=== PATIENT | female | born 1955 | race Caucasian/White ===

== ENCOUNTER 2017-10-10 15:48 | Emergency (ER) | payer BC ==
[~2017-10-10] VITALS: Ht 152.4 cm; Wt 62.6 kg
[2017-10-10 15:55] VITALS: TEMP 37; O2SAT 97; Ht 152.4 cm; Wt 62.6 kg
[2017-10-10] MEDS ORDERED: DILTIAZEM HCL 5 MG/ML 5 ML VIAL IV STA (16:07)
[2017-10-10] MEDS ORDERED: SODIUM CHLORIDE 0.9% 500ML 500 ML IV STA (16:07)
[2017-10-10 16:20] LABS: BASO % 0.3 %; BASO ABS # 0.02 K/uL (0-0.2); EOS % 2.2 %; EOS ABS # 0.14 K/uL (0-0.5); HEMATOCRIT 42.3 % (37-47); HEMOGLOBIN 14.4 g/dL (12.0-16.0); IG# 0.02 K/uL (0.00-0.02); LYMPH % 28.2 %; LYMPH ABS # 1.81 K/uL (1.2-3.4); MEAN CORPUSCULAR HEMOGLOBIN 31.3 pg (25-34); MEAN PLATELET VOLUME 9.4 fL (7.4-10.4); MONO % 4.2 %; MONO ABS # 0.27 K/uL (0.11-0.59); NEUT % 64.8 %; NEUT ABS # 4.16 K/uL (1.4-6.5); PLATELET COUNT 254 K/uL (130-400); RED CELL DISTRIBUTION WIDTH CV 12.4 % (11.5-14.5); RED CELL DISTRIBUTION WIDTH SD 41.5 fL (36.4-46.3); WHITE BLOOD COUNT 6.42 K/uL (4.8-10.8)
--- NOTE | 2017-10-10 16:35 | DIAGNOSTIC IMAGING REPORT ---
CHEST ONE VIEW PORTABLE CLINICAL HISTORY: Atypical chest pain COMPARISON STUDY: No previous studies for comparison. FINDINGS: The cardiac and mediastinal contours are normal. There is no evidence of focal pulmonary consolidation. There is no evidence of failure. No pleural effusions are visualized.[ IMPRESSION: No active disease in the chest. Electronically signed by: Darian Mantilla M.D. 10/10/2017 4:34 PM Dictated Date/Time: 10/10/2017 4:34 PM
[2017-10-10 16:38] LABS: ALBUMIN 3.9 gm/dl (3.4-5.0); ALT/SGPT 19 U/L (12-78); BLOOD UREA NITROGEN 21 mg/dl (7-18); CALCIUM 8.7 mg/dl (8.5-10.1); CARBON DIOXIDE 20 mmol/L (21-32); GLUCOSE 103 mg/dl (70-99); LIPASE 221 U/L (73-393); SODIUM 137 mmol/L (136-145)
[2017-10-10] MEDS ORDERED: AMLO-114 PO (16:42)
[2017-10-10] MEDS ORDERED: LOSA50TA54 PO (16:42)
[2017-10-10 16:49] LABS: ALKALINE PHOSPHATASE 55 U/L (45-117); AST/SGOT 16 U/L (15-37); TOTAL PROTEIN 7.2 gm/dl (6.4-8.2)
[2017-10-10] MEDS ORDERED: SODIUM CHLORIDE 0.9% 1000ML 1,000 ML IV STA ×3 (16:50→18:22)
[2017-10-10] MEDS ORDERED: ASPI-435 PO (16:52)
[2017-10-10] MEDS ORDERED: LOVENOX TEACHING KIT STA (20:19)
[2017-10-10] MEDS ORDERED: MAGNESIUM SULFATE 1GM / D5W 1 GM BAG IV STA (20:19)
[2017-10-10] MEDS ORDERED: ENOXAPARIN 1 MG/KG SQ STA (20:19)
[2017-10-10] MEDS ORDERED: METOPROLOL TARTRATE 50 MG TAB PO STA (20:19)
--- NOTE | 2017-10-10 20:20 | EMERGENCY ROOM VISIT NOTE ---
History Report prepared by José: Boogie Gonzalez Under the Supervision of: Dr. Connor Zhu M.D. First contact with patient: 15:58 Chief Complaint: CARDIAC ASSESSMENT Stated Complaint: CARDIAC SX Nursing Triage Summary: cramping in legs, dehydration, fatigue, A. fib History of Present Illness The patient is a 62 year old female who presents to the Emergency Room by EMS with complaints of constant bilateral leg "cramping" beginning today. She was found to be in A-fib en route, and was given Diltiazem. She also complains of fatigue today. The patient has a history of A-fib, but has not had an episode in about seven years. She is not on any blood thinners. She denies cough, shortness of breath, or nausea. The patient notes that she was sick two weeks ago with flu-like symptoms including fevers, chills, vomiting, abdominal pain. She feels that she may be dehydrated. She notes that she has not felt heart palpitations at all today. The patient was started on Losartan last week for urinary symptoms. She adds that she has not been eating well today. She has no history of thyroid issues or blood clots. Source of History: patient Onset: Today Position: leg (bilateral) Quality: cramping Timing: constant Associated Symptoms: + fevers (two weeks ago), + vomiting (two weeks ago), + abdominal pain (two weeks ago), + fatigue (today), No cough, No SOB, No nausea Review of Systems See HPI for pertinent positives and negatives. A total of ten systems were reviewed and were otherwise negative. Past Medical & Surgical Medical Problems: (1) A-fib (2) HTN (hypertension) Family History No pertinent family stated. Social History Smoking Status: Never Smoker Current/Historical Medications Scheduled Amlodipine (Norvasc), 10 MG PO QPM Aspirin (Aspirin 81), 81 MG PO DAILY Enoxaparin (Lovenox), 60 MG SQ Q12H Losartan Potassium (Cozaar), 50 MG PO DAILY Metoprolol Tartrate (Lopressor), 25 MG PO BID Allergies Coded Allergies: Diphenhydramine (Unverified Adverse Reaction, Unknown, HAD 12 YEARS AGO W / CHEMO, "NERVOUSNESS", 10/10/17) Physical Exam Vital Signs Date Time Temp Pulse Resp B/P (MAP) Pulse Ox O2 Delivery O2 Flow Rate FiO2 10/10/17 22:03 65 20 128/78 95 10/10/17 20:38 98 10/10/17 19:16 103 15 142/101 98 Room Air 10/10/17 18:14 115 16 156/90 99 Room Air 10/10/17 17:26 105 18 136/85 98 Room Air 10/10/17 16:44 110 18 164/97 97 Room Air 10/10/17 16:33 131 10/10/17 16:28 102 18 136/78 97 Room Air 10/10/17 15:55 Room Air 10/10/17 15:55 97 Room Air 10/10/17 15:55 37.0 140 24 177/112 97 Room Air Physical Exam GENERAL: Awake, alert, fatigued-appearing, in no distress HENT: Normocephalic, atraumatic. Oropharynx unremarkable. Dry mucous membranes. EYES: Normal conjunctiva. Sclera non-icteric. NECK: Supple. No nuchal rigidity. FROM. No JVD. RESPIRATORY: Clear to auscultation. CARDIAC: Tachycardic rate with an irregularly irregular rhythm. Extremities warm and well perfused. Pulses equal. ABDOMEN: Soft, non-distended. No tenderness to palpation. No rebound or guarding. No masses. RECTAL: Deferred. MUSCULOSKELETAL: Chest examination reveals no tenderness. The back is symmetrical on inspection without obvious abnormality. There is no CVA tenderness to palpation. No joint edema. LOWER EXTREMITIES: Calves are equal size bilaterally and non-tender. No edema. No discoloration. NEURO: Normal sensorium. No sensory or motor deficits noted. SKIN: No rash or jaundice noted. Medical Decision & Procedures ER Provider Diagnostic Interpretation: Radiology results as stated below per my review and radiologist interpretation: CHEST ONE VIEW PORTABLE FINDINGS: The cardiac and mediastinal contours are normal. There is no evidence of focal pulmonary consolidation. There is no evidence of failure. No pleural effusions are visualized.[ IMPRESSION: No active disease in the chest. Electronically signed by: Darian Mantilla M.D. 10/10/2017 4:34 PM Laboratory Results 10/10/17 16:05 Red Blood Count 4.60, Mean Corpuscular Volume 92.0, Mean Corpuscular Hemoglobin 31.3, Mean Corpuscular Hemoglobin Concent 34.0, Mean Platelet Volume 9.4, Neutrophils (%) (Auto) 64.8, Lymphocytes (%) (Auto) 28.2, Monocytes (%) (Auto) 4.2, Eosinophils (%) (Auto) 2.2, Basophils (%) (Auto) 0.3, Neutrophils # (Auto) 4.16, Lymphocytes # (Auto) 1.81, Monocytes # (Auto) 0.27, Eosinophils # (Auto) 0.14, Basophils # (Auto) 0.02 10/10/17 16:05 Test 10/10/17 16:05 10/10/17 16:30 White Blood Count 6.42 K/uL (4.8-10.8) Red Blood Count 4.60 M/uL (4.2-5.4) Hemoglobin 14.4 g/dL (12.0-16.0) Hematocrit 42.3 % (37-47) Mean Corpuscular Volume 92.0 fL (80-100) Mean Corpuscular Hemoglobin 31.3 pg (25-34) Mean Corpuscular Hemoglobin Concent 34.0 g/dl (32-36) Platelet Count 254 K/uL (130-400) Mean Platelet Volume 9.4 fL (7.4-10.4) Neutrophils (%) (Auto) 64.8 % Lymphocytes (%) (Auto) 28.2 % Monocytes (%) (Auto) 4.2 % Eosinophils (%) (Auto) 2.2 % Basophils (%) (Auto) 0.3 % Neutrophils # (Auto) 4.16 K/uL (1.4-6.5) Lymphocytes # (Auto) 1.81 K/uL (1.2-3.4) Monocytes # (Auto) 0.27 K/uL (0.11-0.59) Eosinophils # (Auto) 0.14 K/uL (0-0.5) Basophils # (Auto) 0.02 K/uL (0-0.2) RDW Standard Deviation 41.5 fL (36.4-46.3) RDW Coefficient of Variation 12.4 % (11.5-14.5) Immature Granulocyte % (Auto) 0.3 % Immature Granulocyte # (Auto) 0.02 K/uL (0.00-0.02) Anion Gap 12.0 mmol/L (3-11) Est Creatinine Clear Calc Drug Dose 52.9 ml/min Estimated GFR () 78.9 Estimated GFR (Non- 68.0 BUN/Creatinine Ratio 23.2 (10-20) Calcium Level 8.7 mg/dl (8.5-10.1) Magnesium Level 1.7 mg/dl (1.8-2.4) Total Bilirubin 0.5 mg/dl (0.2-1) Direct Bilirubin < 0.1 mg/dl (0-0.2) Aspartate Amino Transf (AST/SGOT) 16 U/L (15-37) Alanine Aminotransferase (ALT/SGPT) 19 U/L (12-78) Alkaline Phosphatase 55 U/L (45-117) Troponin I < 0.015 ng/ml (0-0.045) Pro-B-Type Natriuretic Peptide 52 pg/ml (0-900) Total Protein 7.2 gm/dl (6.4-8.2) Albumin 3.9 gm/dl (3.4-5.0) Lipase 221 U/L (73-393) Thyroid Stimulating Hormone (TSH) 0.653 uIu/ml (0.300-4.500) Urine Color YELLOW Urine Appearance CLEAR (CLEAR) Urine pH 5.0 (4.5-7.5) Urine Specific Rowley 1.015 (1.000-1.030) Urine Protein NEG (NEG) Urine Glucose (UA) NEG (NEG) Urine Ketones NEG (NEG) Urine Occult Blood NEG (NEG) Urine Nitrite NEG (NEG) Urine Bilirubin NEG (NEG) Urine Urobilinogen NEG (NEG) Urine Leukocyte Esterase NEG (NEG) Laboratory results reviewed by me Medications Administered Medications (Trade) Dose Ordered Sig/Aniya Route Start Time Stop Time Status Last Admin Dose Admin Sodium Chloride 500 ml @ 999 mls/hr Q31M STAT IV 10/10/17 16:07 10/10/17 16:37 DC 10/10/17 16:26 999 MLS/HR Diltiazem HCl (Cardizem Inj) 20 mg NOW STAT IV 10/10/17 16:07 10/10/17 16:12 DC 10/10/17 16:26 20 MG Sodium Chloride 1,000 ml @ 999 mls/hr Q1H1M STAT IV 10/10/17 16:50 10/10/17 17:50 DC 10/10/17 16:54 999 MLS/HR Sodium Chloride 1,000 ml @ 999 mls/hr Q1H1M STAT IV 10/10/17 18:22 10/10/17 19:22 DC 10/10/17 18:25 999 MLS/HR Metoprolol Tartrate (Lopressor Tab) 25 mg NOW STAT PO 10/10/17 20:19 10/10/17 20:24 DC 10/10/17 20:28 25 MG Magnesium Sulfate (Magnesium Sulfate) 2 gm NOW STAT IV 10/10/17 20:19 10/10/17 20:24 DC 10/10/17 20:29 2 GM Miscellaneous (Lovenox Teaching Kit) 1 ea NOW STAT N/A 10/10/17 20:19 10/10/17 20:24 DC 10/10/17 20:19 1 EA Enoxaparin Sodium (Lovenox Inj) 60 mg 5 SQ 10/10/17 20:45 10/10/17 22:42 DC 10/10/17 21:41 60 MG ECG Indication: other (fatigue) Rate (beats per minute): 137 Rhythm: atrial fibrillation (with RVR) Findings: no acute ischemic change, other (Normal axis. ) ED Course 1559: The patient was evaluated in room A12B. A complete history and physical exam was performed. 2015: I reevaluated the patient. Discussed results and discharge instructions: she verbalized understanding and agreement. The patient is ready for discharge. Medical Decision I reviewed the patient's past medical history, medications, and the nursing notes as described above. The patient's presentation and history were concerning for premature contractions, electrolyte abnormality, cardiac dysrhythmia, thyroid dysfunction , pulmonary embolism, infection, gastrointestinal, as well as other pathologies were entertained. The patient is a 62-year-old woman with a past medical history of remote paroxysmal A. fib who presents emergency Department with generalized fatigue found to be in A. fib with RVR to the 160s per hpi. En route by EMS the patient was given 15 mg of IV Cardizem with marginal improvement to the 130s. Of note patient reports resolving URI 2 weeks [employer] during which time she feels she was eating and drinking less. On arrival the patient is no acute distress, afebrile, A. fib to 130s, blood pressure hypertensive but otherwise stable. Duration of new afib unclear given patient denies palpitations on arrival, thus cardioversion not indicated. Labs with WBC, troponin, BNP within normal limits. Magnesium 1.7. UA negative. Chest x-ray negative. Patient improved with IV fluids and additional dose of diltiazem heart rate settling in the 90s-100s. CHADSVASC 2 thus anticoagulation is indicated. Risks and benefits were discussed with the patient and she is agreeable to begin anticoagulation. She is uncertain if she would prefer a novel AC medication versus Coumadin and agrees to begin Lovenox until she can discuss further with cardiology and her PCP. Will given low dose metoprolol for rate control until her f/u. Findings and plan for follow-up reviewed with patient. Patient agreeable and d/c'd per discharge instructions. Medication Reconcilliation Current Medication List: was personally reviewed by me Blood Pressure Screening Patient's blood pressure: Elevated blood pressure Blood pressure disposition: Referred to PCP Impression Primary Impression: Atrial fibrillation with rapid ventricular response Scribe Attestation The scribe's documentation has been prepared under my direction and personally reviewed by me in its entirety. I confirm that the note above accurately reflects all work, treatment, procedures, and medical decision making performed by me. Departure Information Dispostion Home / Self-Care Prescriptions Enoxaparin (Lovenox) 120 Mg/0.8 Ml Inj 60 MG SQ Q12H for 14 Days, #28 SYR Prov: Connor Zhu M.D. 10/10/17 Metoprolol Tartrate (LOPRESSOR) 25 Mg Tab 25 MG PO BID for 14 Days, #28 TAB Prov: Connor Zhu M.D. 10/10/17 Referrals Arthur Gore M.D. Patient Instructions Anticoagulants, Atrial Fibrillation Dc, My [facility] Additional Instructions Please follow up with cardiology, Dr. Gore, tomorrow, for re-evaluation. You were found to have new atrial fibrillation with a fast heart rate that improved with hydration and medications. Otherwise, your exam, EKG, chest xray, and lab results did not show signs of an emergent condition at this time. Based on your risk factors for stroke you meet criteria to be on a blood thinner to minimize the risk of stroke associated with atrial fibrillation. You will be started on Lovenox until you are able further decide with your doctors. You were also given a prescription for Metoprolol, a medication to keep your heart rate from becoming too fast. Return to the emergency department for worsening symptoms as described in the accompanying instructions. Work Instructions Return To Work: 1 week
[2017-10-10] MEDS ORDERED: ENOXAPARIN 60 MG/0.6 ML SYR SQ SCH (20:45)
[2017-10-10] MEDS ORDERED: LPR25 PO (21:33)
[2017-10-10] MEDS ORDERED: ENOX120I SQ (21:33)
[2017-10-10 22:03] VITALS: BP 128/78; PULSE 65; O2SAT 95
--- NOTE | 2017-10-11 12:12 | Pharmacy Progress Note ---
ED Pharmacist Progress Note Date of Service: Oct 11, 2017. Phone call received from [facility] questioning the Lovenox Rx given by Dr Zhu. Rx was sent for 120mg/0.8mL syringes with directions of 60mg SQ Q 12 hours x 14 days. Reviewed medical record. Pt dx with a fib. Wt is 62.6kg. Provider wanted 1mg/ kg (60mg) Q 12 hrs to be administered per his documentation. Advised pharmacist that the 60mg syringes should be dispensed in place of the 120mg syringes.
== END 2017-10-10 22:00 | disposition home or self-care (01) ==
LOC: C.EDA 15:55
DX: I48.0 Paroxysmal atrial fibrillation (principal); I10 Essential (primary) hypertension; Z79.82 Long term (current) use of aspirin; Z79.01 Long term (current) use of anticoagulants; Z79.899 Other long term (current) drug therapy

== ENCOUNTER 2018-01-16 16:29 | Emergency (ER) | payer BC ==
[~2018-01-16] VITALS: Ht 152.4 cm; Wt 61.7 kg
[~2018-01-16 16:29] MED LIST: AMLO-114 PO; ASPI-435 PO; LOSA50TA54 PO
[2018-01-16 16:33] VITALS: TEMP 37.2; Ht 152.4 cm; Wt 61.7 kg
[2018-01-16] MEDS ORDERED: SODIUM CHLORIDE 0.9% 500ML 500 ML IV STA (17:32)
--- NOTE | 2018-01-16 17:34 | EMERGENCY ROOM VISIT NOTE ---
History Report prepared by José: Peter Chacon Under the Supervision of: Dr. Connor Zhu M.D. First contact with patient: 17:25 Chief Complaint: DIZZY Stated Complaint: DIZZY Nursing Triage Summary: Dizzy spells since December. Pt was diagnosed with new onset Afib in October and placed on new medicatons. Pt states the spells mostly happen in the morning. Pt was dizzy this morning for about 15-20 minutes, pt does not pass out. History of Present Illness The patient is a 62 year old female who presents to the Emergency Room with complaints of a resolved, episode of dizziness that occurred four hours ago. The patient states her episode lasted for 15 minutes. She reports she started new heart medication in October when she was diagnosed with A-Fib. The patient notes she has had about 6-7 similar episodes since November. She states took her blood pressure, and it was 89 systolic. The patient reports she sat up, moved around, and felt better. She notes she did not sleep well last night because her acid reflux was more active than normal. The patient states she has been painting around her house and was extremely tired yesterday. She reports she woke up today and thought she was going to have a dizzy spell. The patient notes she called Dr. Gore and was told to come to the ED. She states she currently takes lysortine, Bystolic, and Xarelto. The patient denies trouble eating or drinking, cough, congestion, nausea, vomiting, diarrhea, chest pain, shortness of breath, and urinary symptoms. Source of History: patient Onset: four hours ago Symptom Intensity: 15 minutes Quality: other (dizziness) Timing: resolved Modifying Factors (Relieving): movement Associated Symptoms: No cough, No chest pain, No SOB, No nausea, No vomiting , No diarrhea, No urinary symptoms Note: Associated symptoms: 89 systolic bp, Denies: trouble eating or drinking, congestion Review of Systems See HPI for pertinent positives and negatives. A total of ten systems were reviewed and were otherwise negative. Past Medical & Surgical Medical Problems: (1) A-fib (2) HTN (hypertension) Family History Patient reports no known family medical history. Social History Smoking Status: Never Smoker Marital Status: Housing Status: lives with significant other Occupation Status: employed Current/Historical Medications Scheduled Amlodipine (Norvasc), 10 MG PO QPM Aspirin (Aspirin 81), 81 MG PO DAILY Losartan Potassium (Cozaar), 50 MG PO DAILY Nebivolol Hcl (Bystolic), 10 MG PO DAILY Rivaroxaban (Xarelto), 20 MG PO DAILY Allergies Coded Allergies: Diphenhydramine (Unverified Adverse Reaction, Unknown, HAD 12 YEARS AGO W / CHEMO, "NERVOUSNESS", 01/16/18) Physical Exam Vital Signs Date Time Temp Pulse Resp B/P (MAP) Pulse Ox O2 Delivery O2 Flow Rate FiO2 01/16/18 21:56 67 16 115/76 98 01/16/18 21:05 68 18 134/72 96 Room Air 01/16/18 21:03 70 01/16/18 20:04 55 18 143/75 96 Room Air 01/16/18 18:40 65 18 98/80 97 Room Air 01/16/18 16:45 64 01/16/18 16:33 37.2 68 16 152/73 98 Room Air Physical Exam GENERAL: Awake, alert, fatigue-appearing, in no distress HENT: Normocephalic, atraumatic. Oropharynx has dry mucus membranes otherwise unremarkable. EYES: Normal conjunctiva. Sclera non-icteric. NECK: Supple. No nuchal rigidity. FROM. No JVD. RESPIRATORY: Clear to auscultation. CARDIAC: Regular rate, normal rhythm. Extremities warm and well perfused. Pulses equal. ABDOMEN: Soft, non-distended. No tenderness to palpation. No rebound or guarding. No masses. RECTAL: Deferred. MUSCULOSKELETAL: Chest examination reveals no tenderness. The back is symmetrical on inspection without obvious abnormality. There is no CVA tenderness to palpation. No joint edema. LOWER EXTREMITIES: Calves are equal size bilaterally and non-tender. No edema. No discoloration. NEURO: Normal sensorium. No sensory or motor deficits noted. normal cerebellar function with adkrji-db-[id number], alternating palms, dpun-[id number] SKIN: No rash or jaundice noted. Medical Decision & Procedures ER Provider Diagnostic Interpretation: X-ray: Per my interpretation, radiologist review. CHEST ONE VIEW PORTABLE CLINICAL HISTORY: dizzy mental status change COMPARISON STUDY: 10/10/2017 FINDINGS: The bones soft tissues and hemidiaphragms are normal. The cardiomediastinal silhouette is normal. The lungs are clear. The pulmonary vasculature is normal. IMPRESSION: Negative chest. The above report was generated using voice recognition software. It may contain grammatical, syntax or spelling errors. Electronically signed by: Aidan Hudson M.D. 01/16/2018 5:44 PM Dictated Date/Time: 01/16/2018 5:43 PM Laboratory Results 01/16/18 17:18 Red Blood Count 4.32, Mean Corpuscular Volume 88.7, Mean Corpuscular Hemoglobin 30.6, Mean Corpuscular Hemoglobin Concent 34.5, Mean Platelet Volume 9.5, Neutrophils (%) (Auto) 77.5, Lymphocytes (%) (Auto) 15.6, Monocytes (%) (Auto) 4.5, Eosinophils (%) (Auto) 2.0, Basophils (%) (Auto) 0.2, Neutrophils # (Auto) 5.14, Lymphocytes # (Auto) 1.03, Monocytes # (Auto) 0.30, Eosinophils # (Auto) 0.13, Basophils # (Auto) 0.01 01/16/18 17:18 01/16/18 18:38 Test 01/16/18 17:18 01/16/18 18:38 01/16/18 19:30 White Blood Count 6.62 K/uL (4.8-10.8) Red Blood Count 4.32 M/uL (4.2-5.4) Hemoglobin 13.2 g/dL (12.0-16.0) Hematocrit 38.3 % (37-47) Mean Corpuscular Volume 88.7 fL (80-100) Mean Corpuscular Hemoglobin 30.6 pg (25-34) Mean Corpuscular Hemoglobin Concent 34.5 g/dl (32-36) Platelet Count 300 K/uL (130-400) Mean Platelet Volume 9.5 fL (7.4-10.4) Neutrophils (%) (Auto) 77.5 % Lymphocytes (%) (Auto) 15.6 % Monocytes (%) (Auto) 4.5 % Eosinophils (%) (Auto) 2.0 % Basophils (%) (Auto) 0.2 % Neutrophils # (Auto) 5.14 K/uL (1.4-6.5) Lymphocytes # (Auto) 1.03 K/uL (1.2-3.4) Monocytes # (Auto) 0.30 K/uL (0.11-0.59) Eosinophils # (Auto) 0.13 K/uL (0-0.5) Basophils # (Auto) 0.01 K/uL (0-0.2) RDW Standard Deviation 41.5 fL (36.4-46.3) RDW Coefficient of Variation 13.0 % (11.5-14.5) Immature Granulocyte % (Auto) 0.2 % Immature Granulocyte # (Auto) 0.01 K/uL (0.00-0.02) Anion Gap 12.0 mmol/L (3-11) Est Creatinine Clear Calc Drug Dose 45.0 ml/min Estimated GFR () 65.5 Estimated GFR (Non- 56.5 BUN/Creatinine Ratio 23.4 (10-20) Calcium Level 9.4 mg/dl (8.5-10.1) Phosphorus Level 2.7 mg/dl (2.5-4.9) Total Bilirubin 0.5 mg/dl (0.2-1) Alanine Aminotransferase (ALT/SGPT) 17 U/L (12-78) Alkaline Phosphatase 52 U/L (45-117) Creatine Kinase MB 1.7 ng/ml (0.5-3.6) Creatine Kinase MB Ratio (0-3.0) Troponin I < 0.015 ng/ml (0-0.045) Pro-B-Type Natriuretic Peptide 1790 pg/ml (0-900) Total Protein 7.2 gm/dl (6.4-8.2) Albumin 3.6 gm/dl (3.4-5.0) Globulin 3.6 gm/dl (2.5-4.0) Albumin/Globulin Ratio 1.0 (0.9-2) Thyroid Stimulating Hormone (TSH) 0.487 uIu/ml (0.300-4.500) Magnesium Level 1.4 mg/dl (1.8-2.4) Aspartate Amino Transf (AST/SGOT) 12 U/L (15-37) Total Creatine Kinase 45 U/L (26-192) Urine Color YELLOW Urine Appearance CLEAR (CLEAR) Urine pH 5.0 (4.5-7.5) Urine Specific Gantt 1.018 (1.000-1.030) Urine Protein NEG (NEG) Urine Glucose (UA) NEG (NEG) Urine Ketones NEG (NEG) Urine Occult Blood NEG (NEG) Urine Nitrite NEG (NEG) Urine Bilirubin NEG (NEG) Urine Urobilinogen NEG (NEG) Urine Leukocyte Esterase NEG (NEG) Urine WBC (Auto) 1-5 /hpf (0-5) Urine RBC (Auto) 0-4 /hpf (0-4) Urine Hyaline Casts (Auto) 1-5 /lpf (0-5) Urine Epithelial Cells (Auto) 5-10 /lpf (0-5) Urine Bacteria (Auto) NEG (NEG) Laboratory results reviewed by me Medications Administered Medications (Trade) Dose Ordered Sig/Aniya Route Start Time Stop Time Status Last Admin Dose Admin Sodium Chloride 500 ml @ 999 mls/hr Q31M STAT IV 01/16/18 17:32 01/16/18 18:02 DC 01/16/18 17:41 999 MLS/HR Magnesium Sulfate (Magnesium Sulfate 1gm / D5W) 2 gm NOW STAT IV 01/16/18 19:42 01/16/18 19:44 DC 01/16/18 19:49 2 GM Potassium Chloride 100 ml @ 100 mls/hr NOW STAT IV 01/16/18 19:42 01/16/18 20:41 DC 01/16/18 19:59 100 MLS/HR Sodium Chloride 250 ml @ 999 mls/hr Q16M STAT IV 01/16/18 19:42 01/16/18 19:57 DC 01/16/18 19:51 999 MLS/HR Ondansetron HCl (Zofran Inj) 4 mg NOW STAT IV 01/16/18 19:50 01/16/18 19:53 DC 01/16/18 19:58 4 MG Potassium Chloride (Klor-Con M10) 40 meq NOW STAT PO 01/16/18 19:50 01/16/18 19:53 DC 01/16/18 20:01 40 MEQ ECG Per My Interpretation Indication: other (dizziness) Rate (beats per minute): 53 Rhythm: sinus bradycardia Findings: no acute ischemic change, other (Normal axis) ED Course 1726: The patient was evaluated in room B11B. A complete history and physical exam was performed. 1943: I reevaluated the patient. Discussed results and discharge instructions: she verbalized understanding and agreement. The patient is ready for discharge after her electrolytes are replenished. Medical Decision I reviewed the patient's past medical history, medications, and the nursing notes as described above. Differential diagnosis: Etiologies such as migraine headache, meningitis, sinusitis, CO exposure, ICH, SAH, infection, tumor, headache, sinus thrombosis, arterial dissection, as well as others were entertained. The patient is a 61-year-old woman with a past medical history of A. fib on Xarelto who presents emergency department with intermittent episodes of lightheadedness where she reports she takes her blood pressure and it is with a systolic in the 80s per hpi. She denies any chest pain or shortness of breath with these episodes and currently presents emergency department with no symptoms. She had her most recent episode around 3 PM prior to arrival that is now resolved. Arrival the patient is well-appearing in no acute distress, afebrile stable vital signs. EKG is unremarkable. Chest x-ray negative. The patient is neuro intact including normal cerebellar function with sfvdwe-lb-[id number] , alternating palms, easj-ls-yaes. She does appear clinically dry and reports that she is pretty active decreased since she has been placed on medication for her A. fib and so she has been actively painting her house going up and down a ladder she does report not drinking much fluids. WBC and troponin within normal limits. BNP elevated 1700s however chest x-ray clear and patient is without any respiratory symptoms. BUN/creatinine > 20. Bicarbonate 18. No anion gap. Consistent with mild dehydration given the patient's clinically dry appearance. Magnesium 1.4 and potassium 3.3. Discussed with the patient and we agreed to provide repletion and hydration and if she continues to be asymptomatic she can follow-up with her primary care doctor and accounting systems manager with whom she has an appointment with on . Patient improved and ambulating without difficulty. Findings and plan for follow-up reviewed with patient. Patient agreeable and d/c'd per discharge instructions. Medication Reconcilliation Current Medication List: was personally reviewed by me Blood Pressure Screening Patient's blood pressure: Normal blood pressure Blood pressure disposition: Did not require urgent referral Impression Primary Impression: Dizziness Additional Impression: Dehydration Scribe Attestation The scribe's documentation has been prepared under my direction and personally reviewed by me in its entirety. I confirm that the note above accurately reflects all work, treatment, procedures, and medical decision making performed by me. Departure Information Dispostion Home / Self-Care Referrals No Doctor, Assigned (PCP) Forms HOME CARE DOCUMENTATION FORM, IMPORTANT VISIT INFORMATION Patient Instructions Dizziness Fainting Poss Causes, ED Dehydration, ED Dizziness Amaris UNDERWO[facility] Additional Instructions Please follow up with your primary care physician in the next 1-3 days and your accounting systems manager as scheduled on for re-evaluation. Your symptoms are most likely related to mild dehydration. Otherwise, your exam, EKG, chest xray, and lab results did not show signs of an emergent condition at this time. Reduce your Norvasc to 5 mg daily until reevaluated by your accounting systems manager. Drink plenty of fluids to ensure hydration. Return to the emergency department for worsening symptoms as described in the accompanying instructions. Problem Qualifiers
--- NOTE | 2018-01-16 17:45 | DIAGNOSTIC IMAGING REPORT ---
CHEST ONE VIEW PORTABLE CLINICAL HISTORY: dizzy mental status change COMPARISON STUDY: 10/10/2017 FINDINGS: The bones soft tissues and hemidiaphragms are normal. The cardiomediastinal silhouette is normal. The lungs are clear. The pulmonary vasculature is normal. IMPRESSION: Negative chest. The above report was generated using voice recognition software. It may contain grammatical, syntax or spelling errors. Electronically signed by: Aidan Hudson M.D. 01/16/2018 5:44 PM Dictated Date/Time: 01/16/2018 5:43 PM
[2018-01-16 17:52] LABS: BASO % 0.2 %; BASO ABS # 0.01 K/uL (0-0.2); EOS ABS # 0.13 K/uL (0-0.5); HEMATOCRIT 38.3 % (37-47); HEMOGLOBIN 13.2 g/dL (12.0-16.0); IG# 0.01 K/uL (0.00-0.02); LYMPH % 15.6 %; LYMPH ABS # 1.03 K/uL (1.2-3.4); MEAN CELL VOLUME 88.7 fL (80-100); MEAN CORPUSCULAR HEMOGLOBIN 30.6 pg (25-34); MEAN CORPUSCULAR HGB CONC 34.5 g/dl (32-36); MEAN PLATELET VOLUME 9.5 fL (7.4-10.4); MONO % 4.5 %; NEUT % 77.5 %; NEUT ABS # 5.14 K/uL (1.4-6.5); PLATELET COUNT 300 K/uL (130-400); RED CELL DISTRIBUTION WIDTH SD 41.5 fL (36.4-46.3); WHITE BLOOD COUNT 6.62 K/uL (4.8-10.8)
[2018-01-16] MEDS ORDERED: NEBI10TA2 PO (18:14)
[2018-01-16] MEDS ORDERED: RIVA1TAB4 PO (18:14)
[2018-01-16 18:24] LABS: ALBUMIN 3.6 gm/dl (3.4-5.0); ALKALINE PHOSPHATASE 52 U/L (45-117); ALT/SGPT 17 U/L (12-78); BLOOD UREA NITROGEN 25 mg/dl (7-18); CALCIUM 9.4 mg/dl (8.5-10.1); CARBON DIOXIDE 18 mmol/L (21-32); CKMB 1.7 ng/ml (0.5-3.6); CREATININE 1.05 mg/dl (0.60-1.20); GLUCOSE 132 mg/dl (70-99); PHOSPHORUS 2.7 mg/dl (2.5-4.9); SODIUM 141 mmol/L (136-145); TOTAL PROTEIN 7.2 gm/dl (6.4-8.2)
[2018-01-16 19:08] LABS: POTASSIUM 3.2 mmol/L (3.5-5.1)
[2018-01-16] MEDS ORDERED: SODIUM CHLORIDE 0.9% 250ML 250 ML IV STA (19:42)
[2018-01-16] MEDS ORDERED: POTASSIUM CHLR 10 MEQ / WTR 100 ML IV STA (19:42)
[2018-01-16] MEDS ORDERED: MAGNESIUM SULFATE 1GM / D5W 1 GM BAG IV STA (19:42)
[2018-01-16] MEDS ORDERED: ONDANSETRON INJ 2 MG/ML 2 ML VIAL IV STA (19:50)
[2018-01-16] MEDS ORDERED: POTASSIUM CHLORIDE 10 MEQ TABCR PO STA (19:50)
[2018-01-16 21:56] VITALS: BP 115/76; PULSE 67; O2SAT 98
== END 2018-01-16 21:57 | disposition home or self-care (01) ==
LOC: EDBD 16:29 → C.EDB 16:30
DX: R42 Dizziness and giddiness (principal); E86.0 Dehydration; I48.91 Unspecified atrial fibrillation; I10 Essential (primary) hypertension; Z79.899 Other long term (current) drug therapy

== ENCOUNTER 2018-05-02 12:03 | Emergency (ER) | payer BC ==
[~2018-05-02] VITALS: Ht 152.4 cm; Wt 63.1 kg
[~2018-05-02 12:03] MED LIST changes: -AMLO-114 PO; +AMLO10TA3 PO; +NEBI10TA2 PO; +RIVA1TAB4 PO
[2018-05-02 12:07] VITALS: Ht 152.4 cm; Wt 63.1 kg
[2018-05-02] MEDS ORDERED: SODIUM CHLORIDE 0.9% 1000ML 1,000 ML IV STA (12:34)
--- NOTE | 2018-05-02 12:37 | EMERGENCY ROOM VISIT NOTE ---
History Report prepared by José: Daniel Alvarez Under the Supervision of: Dr. Omid Cano M.D. First contact with patient: 12:12 Chief Complaint: DEHYDRATION Stated Complaint: TIRED,THIRSTY,FINDERS AND HANDS TINGLE Nursing Triage Summary: pt reports she thinks she is dehydrated feels thristy, tired, hands and feet tingly. has hx of afib. hr has been 48-61. has hx of ibs History of Present Illness The patient is a 63 year old white female who presents to the Emergency Room with complaints of weakness, increased thirst, and "tingling." The patient notes a history of A-Fib, but denies a history of thyroid problems or diabetes. The patient notes she has had the complaints the last x3-4 days. She states she has felt very thirsty, and notes she doesn't drink a lot of water, but has been urinating more. She notes the tingling is in her fingers. She states the symptoms have been getting worse, so she came in. The patient states she is on Xarelto for her A-Fib. She does note she was also recently on Bystolic, which she stopped taking x2 days. ago. The patient notes palpitations x1 week ago, but states it resolved and only lasted a few minutes. The patient does note hot flashes, but states she is currently menopausal. The patient denies increased confusion, weakness, chest pain, or shortness of breath. The patient states her last BM was this morning. Source of History: patient Onset: x3 days Position: other (generalized ) Symptom Intensity: moderate Timing: constant Associated Symptoms: No fevers, No chills, No chest pain, No SOB, No nausea , No vomiting Review of Systems See HPI for pertinent positives and negatives. A total of ten systems were reviewed and were otherwise negative. Constitutional: No fever, No chills Respiratory: No cough, No shortness of breath Cardiovascular: No chest pain Abdomen: No pain, No nausea, No vomiting, No diarrhea Genitourinary - Female: + urinary frequency Neurologic: + numbness/tingling, No weakness Endocrine: + excessive thirst Past Medical & Surgical Medical Problems: (1) A-fib (2) HTN (hypertension) Family History Patient reports no known family medical history. Social History Smoking Status: Never Smoker Smokeless Tobacco Use: No Alcohol Use: none Drug Use: none Marital Status: Housing Status: lives with significant other Occupation Status: employed Current/Historical Medications Scheduled Aspirin (Aspirin 81), 81 MG PO DAILY Losartan Potassium (Cozaar), 50 MG PO DAILY Nebivolol Hcl (Bystolic), 10 MG PO DAILY Rivaroxaban (Xarelto), 20 MG PO DAILY Allergies Coded Allergies: Diphenhydramine (Unverified Adverse Reaction, Unknown, HAD 12 YEARS AGO W / CHEMO, "NERVOUSNESS", 05/02/18) Physical Exam Vital Signs Date Time Temp Pulse Resp B/P (MAP) Pulse Ox O2 Delivery O2 Flow Rate FiO2 05/02/18 14:29 36.8 66 16 139/78 96 05/02/18 14:10 66 16 139/78 96 Room Air 05/02/18 12:38 64 05/02/18 12:07 36.8 68 18 158/93 98 Room Air Physical Exam GENERAL: Awake, alert, well-appearing, NAD HENT: Normocephalic, atraumatic. EYES: Normal conjunctiva. Sclera non-icteric. PERRL. No anisocoria. NECK: Supple. No nuchal rigidity. FROM. RESPIRATORY: CTAB, no rhonchi, wheezing, crackles CARDIAC: RRR, no MRG ABDOMEN: Soft, NTND, BS+ MSK: No chest wall TTP, no LE edema NEURO: No problems with speech noted. No weakness noted on exam. GCS 15, CN 2- 12 intact, moves all 4s on command SKIN: No rash or jaundice noted. Medical Decision & Procedures Laboratory Results 05/02/18 12:30 Red Blood Count 4.11, Mean Corpuscular Volume 94.4, Mean Corpuscular Hemoglobin 30.9, Mean Corpuscular Hemoglobin Concent 32.7, Mean Platelet Volume 10.1, Neutrophils (%) (Auto) 64.2, Lymphocytes (%) (Auto) 27.4, Monocytes (%) (Auto) 5.7, Eosinophils (%) (Auto) 2.4, Basophils (%) (Auto) 0.3, Neutrophils # (Auto) 3.82, Lymphocytes # (Auto) 1.63, Monocytes # (Auto) 0.34, Eosinophils # (Auto) 0.14, Basophils # (Auto) 0.02 05/02/18 12:30 Test 05/02/18 12:30 05/02/18 13:51 White Blood Count 5.95 K/uL (4.8-10.8) Red Blood Count 4.11 M/uL (4.2-5.4) Hemoglobin 12.7 g/dL (12.0-16.0) Hematocrit 38.8 % (37-47) Mean Corpuscular Volume 94.4 fL (80-100) Mean Corpuscular Hemoglobin 30.9 pg (25-34) Mean Corpuscular Hemoglobin Concent 32.7 g/dl (32-36) Platelet Count 223 K/uL (130-400) Mean Platelet Volume 10.1 fL (7.4-10.4) Neutrophils (%) (Auto) 64.2 % Lymphocytes (%) (Auto) 27.4 % Monocytes (%) (Auto) 5.7 % Eosinophils (%) (Auto) 2.4 % Basophils (%) (Auto) 0.3 % Neutrophils # (Auto) 3.82 K/uL (1.4-6.5) Lymphocytes # (Auto) 1.63 K/uL (1.2-3.4) Monocytes # (Auto) 0.34 K/uL (0.11-0.59) Eosinophils # (Auto) 0.14 K/uL (0-0.5) Basophils # (Auto) 0.02 K/uL (0-0.2) RDW Standard Deviation 43.7 fL (36.4-46.3) RDW Coefficient of Variation 12.8 % (11.5-14.5) Immature Granulocyte % (Auto) 0.0 % Immature Granulocyte # (Auto) 0.00 K/uL (0.00-0.02) Anion Gap 7.0 mmol/L (3-11) Est Creatinine Clear Calc Drug Dose 48.1 ml/min Estimated GFR () 70.7 Estimated GFR (Non- 61.0 BUN/Creatinine Ratio 19.7 (10-20) Calcium Level 8.4 mg/dl (8.5-10.1) Phosphorus Level 2.2 mg/dl (2.5-4.9) Magnesium Level 1.7 mg/dl (1.8-2.4) Total Bilirubin 0.3 mg/dl (0.2-1) Direct Bilirubin < 0.1 mg/dl (0-0.2) Aspartate Amino Transf (AST/SGOT) 20 U/L (15-37) Alanine Aminotransferase (ALT/SGPT) 27 U/L (12-78) Alkaline Phosphatase 57 U/L (45-117) Total Protein 6.9 gm/dl (6.4-8.2) Albumin 3.6 gm/dl (3.4-5.0) Lipase 418 U/L (73-393) Thyroid Stimulating Hormone (TSH) 0.905 uIu/ml (0.300-4.500) Urine Color YELLOW Urine Appearance CLEAR (CLEAR) Urine pH 6.5 (4.5-7.5) Urine Specific Harvey 1.006 (1.000-1.030) Urine Protein NEG (NEG) Urine Glucose (UA) NEG (NEG) Urine Ketones NEG (NEG) Urine Occult Blood NEG (NEG) Urine Nitrite NEG (NEG) Urine Bilirubin NEG (NEG) Urine Urobilinogen NEG (NEG) Urine Leukocyte Esterase NEG (NEG) Laboratory results reviewed by me Medications Administered Medications (Trade) Dose Ordered Sig/Aniya Route Start Time Stop Time Status Last Admin Dose Admin Sodium Chloride 1,000 ml @ 999 mls/hr Q1H1M STAT IV 05/02/18 12:34 05/02/18 13:34 DC 05/02/18 12:44 999 MLS/HR Calcium Carbonate (Tums Chew Tab) 1,500 mg ONE STAT PO 05/02/18 13:22 05/02/18 13:23 DC 05/02/18 13:44 1,500 MG Magnesium Oxide (Mag-Ox Tab) 800 mg ONE STAT PO 05/02/18 13:22 05/02/18 13:23 DC 05/02/18 13:44 800 MG Potassium/ Phosphorus/Sodium (Phospha 250 Neutral 155-852-130 Mg) 2 tab ONE STAT PO 05/02/18 13:22 05/02/18 13:23 DC 05/02/18 13:44 2 TAB ECG Per My Interpretation Indication: other (increased thirst, shaking) Rate (beats per minute): 65 Rhythm: normal sinus Findings: other (Normal Interviews and [place], No ST Changes or TWI) Change: no significant change (From February 2018) Medical Decision Nursing notes reviewed. Ancillary studies and prior records reviewed. The patient is a 63 year old WF w/ PMHx a fib and HTN who presents to the Emergency Room with complaints of weakness, increased thirst, and "tingling." Differential diagnosis: Etiologies such as metabolic, infection, hypo/hyperglycemia, electrolyte abnormalities, cardiac sources, intracerebral event, toxicologic, neurologic, as well as others were entertained. Patient was seen and evaluated the bedside. The patient has noticed feeling generalized weakness as well as some associated increased thirst and urination. Patient states she has not been drinking. Patient does take complain of some mild tingling in her hands. Patient is otherwise very well-appearing and has no focal neuro deficits. I do not believe that she requires a neuro workup at this time. The patient does take Xarelto for her history of A. fib although currently she appears to be normal sinus on the monitor. Patient did have blood work completed was given IV fluids and an EKG was obtained. Patient's blood work to show hypocalcemia hypomagnesemia and hypophosphatemia which were repleted. The patient is feeling improved after IV fluids. Patient' s EKG does show the patient is in normal sinus rhythm. Patient I believe is suitable for outpatient follow-up and treatment at this time. Her tingling is likely related to her electrolyte derangements. Patient was given strict follow -up, discharge, and return precautions. All questions were answered. Patient was deemed suitable for outpatient follow-up at this time. Patient agreed with the plan of care and was safely discharged home. Medication Reconcilliation Current Medication List: was personally reviewed by me Blood Pressure Screening Patient's blood pressure: Elevated blood pressure Blood pressure disposition: Referred to PCP Impression Primary Impression: Dehydration Additional Impressions: Hypomagnesemia Hypocalcemia Hypophosphatemia Scribe Attestation The scribe's documentation has been prepared under my direction and personally reviewed by me in its entirety. I confirm that the note above accurately reflects all work, treatment, procedures, and medical decision making performed by me. Departure Information Dispostion Home / Self-Care Referrals Brigido Arnold M.D. (PCP) Patient Instructions Dehydration, ED Hypocalcemia, Hypomagnesemia Dc, Hypophosphatemia Dc, My [facility] Additional Instructions Please return to the emergency department if you have worsening or recurrent symptoms not amenable to at-home treatment. Please call for a follow-up appointment with her primary care physician. Please take your medications as prescribed. If you have other concerns and/or complaints please feel free to also call your primary care physician's office or return the ED for further evaluation, management, and treatment. You may take tylenol 650 mg every 6 hours as needed for pain/fever unless told by your physician to not take it or have liver problems. Take your medications as prescribed. You have been examined and treated today on an emergency basis only. This is not a substitute for, or an effort to provide, complete comprehensive medical care. It is impossible to recognize and treat all injuries or illnesses in a single emergency department visit. It is therefore important that you follow up closely with [facility], your PCP, and/or your specialist(s). Call as soon as possible for an appointment. Thank you for your time and consideration. I look forward to speaking with you again soon. Please don't hesitate to call us if you have any questions. Problem Qualifiers
[2018-05-02 12:46] LABS: BASO % 0.3 %; BASO ABS # 0.02 K/uL (0-0.2); EOS % 2.4 %; EOS ABS # 0.14 K/uL (0-0.5); HEMATOCRIT 38.8 % (37-47); HEMOGLOBIN 12.7 g/dL (12.0-16.0); LYMPH % 27.4 %; LYMPH ABS # 1.63 K/uL (1.2-3.4); MEAN CELL VOLUME 94.4 fL (80-100); MEAN CORPUSCULAR HEMOGLOBIN 30.9 pg (25-34); MEAN CORPUSCULAR HGB CONC 32.7 g/dl (32-36); MEAN PLATELET VOLUME 10.1 fL (7.4-10.4); MONO % 5.7 %; MONO ABS # 0.34 K/uL (0.11-0.59); NEUT % 64.2 %; NEUT ABS # 3.82 K/uL (1.4-6.5); PLATELET COUNT 223 K/uL (130-400); RED CELL DISTRIBUTION WIDTH CV 12.8 % (11.5-14.5); RED CELL DISTRIBUTION WIDTH SD 43.7 fL (36.4-46.3); WHITE BLOOD COUNT 5.95 K/uL (4.8-10.8)
[2018-05-02 13:10] LABS: ALBUMIN 3.6 gm/dl (3.4-5.0); ALKALINE PHOSPHATASE 57 U/L (45-117); ALT/SGPT 27 U/L (12-78); AST/SGOT 20 U/L (15-37); BLOOD UREA NITROGEN 19 mg/dl (7-18); CALCIUM 8.4 mg/dl (8.5-10.1); CARBON DIOXIDE 23 mmol/L (21-32); CREATININE 0.98 mg/dl (0.60-1.20); GLUCOSE 103 mg/dl (70-99); LIPASE 418 U/L (73-393); PHOSPHORUS 2.2 mg/dl (2.5-4.9); POTASSIUM 3.5 mmol/L (3.5-5.1); SODIUM 141 mmol/L (136-145); TOTAL PROTEIN 6.9 gm/dl (6.4-8.2)
[2018-05-02] MEDS ORDERED: CALCIUM CARBONATE 500 MG CHEWABLE PO STA (13:22)
[2018-05-02] MEDS ORDERED: MAGNESIUM OXIDE 400 MG TAB PO STA (13:22)
[2018-05-02] MEDS ORDERED: POT PHOSPHATE MONOBASIC W/ SOD TAB PO STA (13:22)
[2018-05-02 14:29] VITALS: BP 139/78; PULSE 66; TEMP 36.8; O2SAT 96
== END 2018-05-02 14:30 | disposition home or self-care (01) ==
LOC: C.EDB 12:05 → C.EDC 14:30
DX: E86.0 Dehydration (principal); E83.41 Hypermagnesemia; E83.51 Hypocalcemia; E83.39 Other disorders of phosphorus metabolism

== ENCOUNTER 2018-12-24 09:48 | Inpatient (IN) ==
[2018-12-24] MEDS ORDERED: dilTIAZem HCl 5 MG/ML 5 ML VIAL IV STA ×3 (09:58→11:26)
[2018-12-24] MEDS ORDERED: SODIUM CHLORIDE 0.9% 1000ML 1,000 ML IV ONE (09:58)
[2018-12-24] MEDS ORDERED: LORazepam 1 MG/2 ML VIAL IV STA (09:58)
[2018-12-24 10:10] LABS: Basophils # (auto) 0.02 K/uL (0-0.2); Basophils % (auto) 0.3 %; Eosinophils # (auto) 0.09 K/uL (0-0.5); Eosinophils % (auto) 1.2 %; Hematocrit (blood only) 41.2 % (37-47); Immature Granulocytes # (auto) 0.02 K/uL (0.00-0.02); Immature Granulocytes % (auto) 0.3 %; Lymphocytes # (auto) 1.75 K/uL (1.2-3.4); Lymphocytes % (auto) 23.1 %; Mean Corpuscular Volume 93.4 fL (80-100); Mean Platelet Volume 10.2 fL (7.4-10.4); Monocytes # (auto) 0.32 K/uL (0.11-0.59); Monocytes % (auto) 4.2 %; Neutrophils # (auto) 5.39 K/uL (1.4-6.5); Neutrophils % (auto) 70.9 %; Platelet Count 251 K/uL (130-400); RDW Coefficient of Variation 12.6 % (11.5-14.5); RDW Standard Deviation 42.9 fL (36.4-46.3); Red Blood Count 4.41 M/uL (4.2-5.4); White Blood Count 7.59 K/uL (4.8-10.8)
[2018-12-24 10:24] LABS: Appearance Urine Clear (Clear); Bacteria Urine Automated Negative (Negative); Bilirubin Urine Negative (Negative); Blood Urine Trace (Negative); Cast Urine Automated 0 /lpf (0-5); Color Urine Yellow; Glucose Urine UA Negative (Negative); Ketones Urine Negative (Negative); Leukocyte Esterase Urine Negative (Negative); Nitrite Urine Negative (Negative); Protein Urine Negative (Negative); RBC Urine Automated 0-4 /hpf (0-4); Specific Gravity Urine 1.013 (1.000-1.030); Urobilinogen Urine Negative (Negative)
[2018-12-24 10:40] LABS: BUN Creatinine Ratio 22.8 (10-20); Blood Urea Nitrogen 26 mg/dl (7-18); Calcium 9.8 mg/dl (8.5-10.1); Carbon Dioxide 25 mmol/L (21-32); Chloride 105 mmol/L (98-107); Creatinine Clr Calc Pharmacy 42.1 ml/min; Est GFR (African American) 60.1; Est GFR (Non-African American) 51.9; Glucose 104 mg/dl (70-99); Magnesium 1.7 mg/dl (1.8-2.4); Potassium 4.2 mmol/L (3.5-5.1); Sodium 138 mmol/L (136-145)
[2018-12-24 10:50] LABS: Troponin I < 0.015 ng/ml (0-0.045)
[2018-12-24] MEDS ORDERED: MAGNESIUM SULFATE / D5W 1 GM/100 ML BAG IV ONE ×2 (11:19→16:15)
[2018-12-24 12:10] LABS: INR 1.1 (0.9-1.1); Partial Thromboplastin Ratio 1.1; Partial Thromboplastin Time 28.5 Seconds (21.0-31.0); Prothrombin Time 11.3 Seconds (9.0-12.0)
--- NOTE | 2018-12-24 12:17 | History & Physical Report ---
Date of Service December 24, 2018 Assessment & Plan (1) Atrial fibrillation with rapid ventricular response: 63 y/o F hx AF, HTN. recent difficulty with rate control. She takes Diltiazem and had been placed on a B sarah which she did not tolerate due to fatigue and bradycardia. she has presented to the ER 3 times in the past 2 weeks with a rapid HR. She denies any CP or SOB. She does feel anxious and fatigued and when this occurs. 1) AF - RVR - Provided with a Diltiazem drip and received a bolus in the ER. She would prefer to avoid B blockers as she does not like the way they make her feel and she also became bradycardic previously. We would consider Dig if the Cardizem is not sufficient. We will consult her senior marketing analyst as she states they had mentioned pacer placement to her in the past. She is assigned to telemetry. She is asymptomatic on admission. She is anticoagulated with Xarelto. 2) HTN - Losartan held to allow for additional rate agents 3) Hypomagnesemia - replaced Full code - Xarelto prophylaxis Total time for this admit including review of labs, meds, imaging, records - discussion with pt and ER attending - 38 min History of Present Illness Chief Complaint: rapid HR Primary Care Provider: Brigido Arnold 63 y/o F hx AF, HTN. recent difficulty with rate control. She takes Diltiazem and had been placed on a B sarah which she did not tolerate due to fatigue and bradycardia. she has presented to the ER 3 times in the past 2 weeks with a rapid HR. She denies any CP or SOB. She does feel anxious and fatigued and when this occurs. Initial labs are notable for a low magnesium. PMH: 1) HTN 2) Chronic AF Surgical: Denies Social: No history of drinking or smoking Family: Father possibly due to suicide - history of CAD Mother due to complications of dementia Allergies Allergy/AdvReac Type Severity Reaction Status Date / Time No Known Allergies Allergy Verified 12/22/18 16:40 Home Medications Home Medications Medication Instructions Recorded Confirmed Type magnesium 200 mg PO BID 05/23/18 12/24/18 History rivaroxaban [Xarelto] 20 mg PO HS 05/23/18 12/24/18 History acetaminophen [Tylenol Arthritis 650 mg PO BID PRN 11/16/18 12/24/18 History Pain] metoprolol succinate [Toprol XL] 0 mg PO DAILY PRN 11/16/18 12/24/18 History diltiazem HCl [Cardizem CD] 120 mg PO DAILY #20 cap 12/22/18 12/24/18 Rx losartan 100 mg PO HS 12/22/18 12/24/18 History cyanocobalamin (vitamin B-12) 0 mcg PO DAILY 12/24/18 12/24/18 History [Vitamin B-12] Past Med/Surg History Medical History A-fib (Acute) HTN (hypertension) (Chronic) Atrial fibrillation (Inactive) Hypophosphatemia (Inactive) Surgical History No pertinent past surgical history Family History Other No pertinent family history in first degree relatives Social History Preferred Language: Yoruba marital status: Current Living Situation: Spouse Feels Safe at Home: Yes Smoking Status: Never smoker Hx Alcohol Use: No Hx Substance Use: No Review of Systems Gen: Denies fevers, night sweats, rigors, fatigue, malaise, weight loss/gain ENT: Denies congestion, throat pain, hearing loss Eyes: Denies acute visual changes CV: Palpitation and anxiety/fatigue as above Pulmonary: Denies SOB, cough, wheezing GI: Denies N/V, diarrhea, constipation Neuro: Denies acute or unilateral weakness, acute gait impairment, headache or acute visual changes Musculoskeletal: Denies joint pain, inflammation Endocrine: Denies polydipsia, polyuria Skin: Denies acute rashes or ulcers Physical Exam Vital Signs (Past 24 Hours): Last Vital Signs Temp 37 C 12/24/18 09:59 Pulse 136 H 12/24/18 11:07 Resp 18 12/24/18 11:07 BP 135/92 12/24/18 11:07 Pulse Ox 98 12/24/18 11:07 Physical Exam: General: AAO x 3, no distress ENT: No erythema or exudates, no thrush Eyes: JOSE, EOMI Head and neck: Normocephalic, atraumatic, No JVD, neck is supple. Chest/heart: Nontender, S1,2, tachy, irreg Lungs: CTAB, no wheezing or crackles Abdomen: Nontender, nondistended, BS+ Neuro: AAO x 3, speech is clear, no unilateral weakness or loss of sensation, coordination intact Musculoskeletal: No joint inflammation, muscle tenderness, FROM Skin: No acute rashes or ulcers Extremities: No clubbing, cyanosis, edema Results & Data Diagnostic Findings EKG - AF, possibly also episodes of flutter on monitor - RVR 120-180
[2018-12-24] MEDS ORDERED: ALUMINUM/MAGNESIUM SUSP 30 ML UDC PO PRN (14:10)
[2018-12-24] MEDS ORDERED: ZOLPIDEM TARTRATE 5 MG TAB PO PRN (14:10)
[2018-12-24] MEDS ORDERED: MAGNESIUM HYDROXIDE SUSP 30 ML UDC PO PRN (14:10)
[2018-12-24] MEDS ORDERED: ONDANSETRON INJ 2 MG/ML 2 ML VIAL IV PRN (14:10)
[2018-12-24] MEDS ORDERED: DIGOXIN 0.125 MG TAB PO ONE (14:10)
[2018-12-24] MEDS ORDERED: POLYETHYLENE (MIRALAX) 17 GM PACK PO PRN (14:10)
[2018-12-24] MEDS ORDERED: ACETAMINOPHEN 325 MG TAB PO PRN (14:10)
[2018-12-24] MEDS: dilTIAZem HCl 125 MG in DEXTROSE 5% 100 ML IV SCH ×2 (14:59→22:26)
[2018-12-24] MEDS: LORazepam 1 MG TAB PO PRN (15:07)
[2018-12-24] MEDS: RIVAROXABAN 20 MG TAB PO SCH (16:42)
--- NOTE | 2018-12-24 16:49 | Emergency Department Note ---
Entered by Chel Tracy acting as a scribe for Tien Vergara MD ED Provider Note Name: Flores Crews Age: 63 Arrives Via: EMS Informant: Patient CC: Increased heart rate HPI: 63 year old female arrives for evaluation of persistent increased heart rate that began this morning. The patient states that she has a history of Afib, and states that this is similar to prior episodes. She denies chest pain, nausea, vomiting, leg pain, urinary symptoms, and abdominal pain. The patient states that she feels tired because she has not been sleeping well recently. The patient states that she was seen in the ED two days ago for similar symptoms, and states that she was started on Cardizem at this time. The patient states that she spoke to her ski base trimmer last night and was told to not take her Cardizem or Losartan last night. The patient states that she took her Xarelto last night. ROS: See above HPI for pertinent positives & negatives. A total of 10 systems reviewed and were otherwise negative. Past Medical History: Atrial fibrillation with RVR; HTN Past Surgical History: no significant past surgical history Family History: no significant past family history Social History: . Never smoker. Home Medications: See below Allergies No known allergies. Physical: Vitals: BP: 137/108; Pulse: 138; Resp: 18; Temp: 98.6 F; O2 Sat: 98 via room air. Exam: GENERAL: Patient is anxious appearing and in no acute distress. EYES: No scleral icterus, unremarkable pupils. ENT: Mucous membranes moist, no nasal congestion. NECK: No masses appreciated, no meningismus, trachea is midline. RESPIRATORY: No dyspnea. Clear to auscultation and equal bilaterally. No wheeze, no rhonchi. CARDIOVASCULAR: Tachycardic rate and irregular rhythm. No murmurs, rubs, gallops appreciated. GASTROINTESTINAL: Abdomen soft, non-tender, no peritonitis. Bowel sounds positive. No masses appreciated. BACK: No midline tenderness, no CVA tenderness EXTREMITIES: Normal motion all extremities, no cyanosis, no edema. NEUROLOGIC: Alert and oriented, no acute motor or sensory deficits, no focal weakness, cranial nerves grossly intact. SKIN: No rash, no jaundice, no diaphoresis. ED Course: Prior Medical Record, Triage/Nursing Notes, Medications, Allergies reviewed by Me Vital Signs: reviewed and remarkable for Tachycardia Labs: Reviewed and remarkable for mild low mag Interventions: Saline Lock, Cardizem 10mg IV x 3, NSS bolus IV, Magnesium 1G IV, Ativan 1 mg IV Imaging: None - revealed recent which was normal CXR EKG: Per My Interpretation: Indication: Palpitations. Afib with RVR 147 bpm without ischemia. Rate increased from previous EKG. QTC 494. Consults: 1149: [facility] the [facility] who accepts the patient for further evaluation. Reassessments/Times: 1054: The patient's heart rate is bouncing around in the low 100s and 130s, and is still irregular. The patient states that she feels much better and more calm. 1126: The patient's heart rate is in the low 100s but continues to be irregular. The patient's blood pressure is stable. [facility]ist was paged. 114[facility] and will be down to evaluate the patient. Blood pressure: Normal. No Referral necessary Disposition: Hospitalization Differentials: Etiologies such as premature contractions, electrolyte abnormality, cardiac dysrhythmia, thyroid dysfunction, pulmonary embolism, infection, gastrointestinal, amongst other pathologies. Medical Decision Making: Pleasant very anxious 63 yr old female with palpitations and tachycardia. In afib RVR on arrival. On anticoagulation. She stopped her Cardizem yesterday due bradycardia yesterday and did not tolerate Metoprolol previously. She required 3 rounds IV cardizem to get HR under control and will defer gtt to hospitalist. She is without evidence ACS. No evidence nor history of PE, nor dissection. Labs with mildly low mag which repletion was started IV. She is not infected by work up nor septic. She is stable and feeling better after meds and calming down some. Hospitalist in to evaluate further. Impression: Atrial Fibrillation with rapid ventricular response Anxiety Hypomagnesemia Critical Care Time: I have personally spent greater than 35 minutes of critical care time in the direct management of this patient. Afib RVR requiring 3 rounds IV Bolus Cardizem. This was a life/limb threatening event. This includes time spent evaluating patient, direct bedside care, chart review, placing orders, interpretation of diagnostic studies, discussion with consultants, patient, and family members, as well as other required patient management activities. This 35 minutes is in excess of all separately billable procedures. Tien Vergara MD The scribe's documentation has been prepared under my direction and personally reviewed by me in its entirety. I confirm that the note above accurately reflects all work, treatment, procedures, and medical decision making performed by me. Impression & Plan Atrial fibrillation with rapid ventricular response, Anxiety, Hypomagnesemia Past Med/Surg History Medical History A-fib (Acute) HTN (hypertension) (Chronic) Atrial fibrillation (Inactive) Hypophosphatemia (Inactive) Surgical History No pertinent past surgical history Family History Other No pertinent family history in first degree relatives Social History Preferred Language: Stateless Communication Ability: Effective General Operations Manager Required: No Beliefs That Will Affect Care: None marital status: Current Living Situation: Spouse Other Information That Helps Us Care for You: No Feels Safe at Home: Yes Safety Concerns: Feels Safe At This Time Smoking Status: Never smoker Hx Alcohol Use: No Hx Substance Use: No Results & Data Vital Signs Vital Signs - 24 hr 12/24/18 09:59 12/24/18 11:07 12/24/18 14:00 Temperature 37 C 37 C Temperature Source Oral Oral Sepsis Recent Fever Within 48 Hours No Sepsis Action Taken by Nursing No Action Required Pulse Rate 138 H 140 H Pulse Rate [Left] 136 H 124 H Pulse Rhythm Regular Pulse Rhythm [Left] Regular Irregular Pulse Strength Normal Pulse Strength [Left] Normal Normal Respiratory Rate 18 18 18 Respiratory Effort / Characteristics SOB on Exertion Non-Labored Spontaneous Non-Labored Spontaneous Respiratory Depth Normal Normal Normal Respiratory Pattern Regular Regular Regular Blood Pressure 137/108 H Blood Pressure [Left Arm] 135/92 157/75 H Blood Pressure Mean 117 Blood Pressure Mean [Left Arm] 106 102 Blood Pressure Position Lying Blood Pressure Position [Left Arm] Lying Pulse Oximetry 98 98 97 Pulse Oximetry [Middle Finger] 97 Oxygen Delivery Method Room Air Room Air Room Air Oxygen Delivery Method [Middle Finger] Room Air 12/24/18 15:02 12/24/18 15:39 Temperature 36.9 C Temperature Source Oral Sepsis Recent Fever Within 48 Hours Sepsis Action Taken by Nursing Pulse Rate 140 H Pulse Rate [Left] 87 Pulse Rhythm Pulse Rhythm [Left] Pulse Strength Pulse Strength [Left] Respiratory Rate 19 Respiratory Effort / Characteristics Respiratory Depth Normal Respiratory Pattern Blood Pressure Blood Pressure [Left Arm] 105/69 Blood Pressure Mean Blood Pressure Mean [Left Arm] 81 Blood Pressure Position Blood Pressure Position [Left Arm] Lying Pulse Oximetry 94 Pulse Oximetry [Middle Finger] Oxygen Delivery Method Room Air Oxygen Delivery Method [Middle Finger] Home Medications Current Medication List: was personally reviewed by me Laboratory Data Attestation: I reviewed the patient's lab results. Result diagrams: 12/24/18 09:36 12/24/18 09:36 Lab Results 12/24/18 12/24/18 12/24/18 Range/Units 09:36 09:36 09:36 WBC 7.59 (4.8-10.8) K/uL RBC 4.41 (4.2-5.4) M/uL Hgb 14.0 (12.0-16.0) g/dL Hct 41.2 (37-47) % MCV 93.4 (80-100) fL MCH 31.7 (25-34) pg MCHC 34.0 (32-36) g/dL RDW Std Deviation 42.9 (36.4-46.3) fL RDW Coeff of Anmol 12.6 (11.5-14.5) % Plt Count 251 (130-400) K/uL MPV 10.2 (7.4-10.4) fL Immature Gran % (Auto) 0.3 % Neut % (Auto) 70.9 % Lymph % (Auto) 23.1 % [place] % (Auto) 4.2 % Eos % (Auto) 1.2 % Baso % (Auto) 0.3 % Immature Gran # (Auto) 0.02 (0.00-0.02) K/uL Neut # (Auto) 5.39 (1.4-6.5) K/uL Lymph # (Auto) 1.75 (1.2-3.4) K/uL [place] # (Auto) 0.32 (0.11-0.59) K/uL Eos # (Auto) 0.09 (0-0.5) K/uL Baso # (Auto) 0.02 (0-0.2) K/uL PT Cancelled INR Cancelled APTT Cancelled PTT Ratio Cancelled Sodium 138 (136-145) mmol/L Potassium 4.2 (3.5-5.1) mmol/L Chloride 105 (98-107) mmol/L Carbon Dioxide 25 (21-32) mmol/L Anion Gap 8.0 (3-11) BUN 26 H (7-18) mg/dl Creatinine 1.12 (0.6-1.2) mg/dl Est Cr Clr Drug Dosing 42.1 ml/min Est GFR ( Amer) 60.1 Est GFR (Non-Af Amer) 51.9 BUN/Creatinine Ratio 22.8 H (10-20) Glucose 104 H (70-99) mg/dl Calcium 9.8 (8.5-10.1) mg/dl Magnesium 1.7 L (1.8-2.4) mg/dl Troponin I < 0.015 (0-0.045) ng/ml TSH 0.815 (0.300-4.500) uIu/ml Urine Color Urine Appearance (Clear) Urine pH (4.5-7.5) Ur Specific [place] (1.000-1.030) Urine Protein (Negative) Urine Glucose (UA) (Negative) Urine Ketones (Negative) Urine Blood (Negative) Urine Nitrite (Negative) Urine Bilirubin (Negative) Urine Urobilinogen (Negative) Ur Leukocyte Esterase (Negative) Urine WBC (Auto) (0-5) /hpf Urine RBC (Auto) (0-4) /hpf U Hyaline Cast (Auto) (0-5) /lpf U Epithel Cells (Auto) (0-5) /lpf Urine Bacteria (Auto) (Negative) 12/24/18 12/24/18 12/24/18 Range/Units 09:36 09:36 09:36 WBC (4.8-10.8) K/uL RBC (4.2-5.4) M/uL Hgb (12.0-16.0) g/dL Hct (37-47) % MCV (80-100) fL MCH (25-34) pg MCHC (32-36) g/dL RDW Std Deviation (36.4-46.3) fL RDW Coeff of Anmol (11.5-14.5) % Plt Count (130-400) K/uL MPV (7.4-10.4) fL Immature Gran % (Auto) % Neut % (Auto) % Lymph % (Auto) % [place] % (Auto) % Eos % (Auto) % Baso % (Auto) % Immature Gran # (Auto) (0.00-0.02) K/uL Neut # (Auto) (1.4-6.5) K/uL Lymph # (Auto) (1.2-3.4) K/uL [place] # (Auto) (0.11-0.59) K/uL Eos # (Auto) (0-0.5) K/uL Baso # (Auto) (0-0.2) K/uL PT Cancelled INR Cancelled APTT PTT Ratio Sodium (136-145) mmol/L Potassium (3.5-5.1) mmol/L Chloride (98-107) mmol/L Carbon Dioxide (21-32) mmol/L Anion Gap (3-11) BUN (7-18) mg/dl Creatinine (0.6-1.2) mg/dl Est Cr Clr Drug Dosing ml/min Est GFR ( Amer) Est GFR (Non-Af Amer) BUN/Creatinine Ratio (10-20) Glucose (70-99) mg/dl Calcium (8.5-10.1) mg/dl Magnesium Cancelled (1.8-2.4) mg/dl Troponin I Cancelled (0-0.045) ng/ml TSH Cancelled (0.300-4.500) uIu/ml Urine Color Urine Appearance (Clear) Urine pH (4.5-7.5) Ur Specific [place] (1.000-1.030) Urine Protein (Negative) Urine Glucose (UA) (Negative) Urine Ketones (Negative) Urine Blood (Negative) Urine Nitrite (Negative) Urine Bilirubin (Negative) Urine Urobilinogen (Negative) Ur Leukocyte Esterase (Negative) Urine WBC (Auto) (0-5) /hpf Urine RBC (Auto) (0-4) /hpf U Hyaline Cast (Auto) (0-5) /lpf U Epithel Cells (Auto) (0-5) /lpf Urine Bacteria (Auto) (Negative) 12/24/18 12/24/18 Range/Units 10:05 11:42 WBC (4.8-10.8) K/uL RBC (4.2-5.4) M/uL Hgb (12.0-16.0) g/dL Hct (37-47) % MCV (80-100) fL MCH (25-34) pg MCHC (32-36) g/dL RDW Std Deviation (36.4-46.3) fL RDW Coeff of Anmol (11.5-14.5) % Plt Count (130-400) K/uL MPV (7.4-10.4) fL Immature Gran % (Auto) % Neut % (Auto) % Lymph % (Auto) % [place] % (Auto) % Eos % (Auto) % Baso % (Auto) % Immature Gran # (Auto) (0.00-0.02) K/uL Neut # (Auto) (1.4-6.5) K/uL Lymph # (Auto) (1.2-3.4) K/uL [place] # (Auto) (0.11-0.59) K/uL Eos # (Auto) (0-0.5) K/uL Baso # (Auto) (0-0.2) K/uL PT 11.3 INR 1.1 APTT 28.5 PTT Ratio 1.1 Sodium (136-145) mmol/L Potassium (3.5-5.1) mmol/L Chloride (98-107) mmol/L Carbon Dioxide (21-32) mmol/L Anion Gap (3-11) BUN (7-18) mg/dl Creatinine (0.6-1.2) mg/dl Est Cr Clr Drug Dosing ml/min Est GFR ( Amer) Est GFR (Non-Af Amer) BUN/Creatinine Ratio (10-20) Glucose (70-99) mg/dl Calcium (8.5-10.1) mg/dl Magnesium (1.8-2.4) mg/dl Troponin I (0-0.045) ng/ml TSH (0.300-4.500) uIu/ml Urine Color Yellow Urine Appearance Clear (Clear) Urine pH 5.0 (4.5-7.5) Ur Specific [place] 1.013 (1.000-1.030) Urine Protein Negative (Negative) Urine Glucose (UA) Negative (Negative) Urine Ketones Negative (Negative) Urine Blood Trace H (Negative) Urine Nitrite Negative (Negative) Urine Bilirubin Negative (Negative) Urine Urobilinogen Negative (Negative) Ur Leukocyte Esterase Negative (Negative) Urine WBC (Auto) 1-5 (0-5) /hpf Urine RBC (Auto) 0-4 (0-4) /hpf U Hyaline Cast (Auto) 0 (0-5) /lpf U Epithel Cells (Auto) 5-10 H (0-5) /lpf Urine Bacteria (Auto) Negative (Negative) Administered Medications Diltiazem HCl 125 mg/ Dextrose 125 mls @ 10 mls/hr IV .[id number] [facility]; Protocol Stop: 01/23/19 14:14 Last Admin: 12/24/18 14:59 Dose: 10 mg/hr, 10 mls/hr Documented by: [id number] Cosigned by: [id number] Magnesium Sulfate/Dextrose (Magnesium Sulfate / D5w) 1 gm in 100 mls @ 100 mls/hr IV TODAY@1615 ONE Stop: 12/24/18 17:14 Last Admin: 12/24/18 16:42 Dose: 100 mls/hr Documented by: [id number] Lorazepam (Ativan) 1 mg PO Q8H PRN PRN Reason: Anxiety Stop: 01/23/19 14:25 Last Admin: 12/24/18 15:07 Dose: 1 mg Documented by: [id number] Rivaroxaban (Xarelto) 20 mg PO QDD [facility] Stop: 01/23/19 16:29 Last Admin: 12/24/18 16:42 Dose: 20 mg Documented by: [id number] Discontinued Medications Digoxin (Lanoxin) 0.25 mg PO NOW ONE Stop: 12/24/18 14:11 Last Admin: 12/24/18 15:02 Dose: 0.25 mg Documented by: [id number] Diltiazem HCl (Cardizem) 10 mg IV NOW STA Stop: 12/24/18 09:59 Last Admin: 12/24/18 10:06 Dose: 10 mg Documented by: [id number] Cosigned by: [id number] Diltiazem HCl (Cardizem) 10 mg IV NOW STA Stop: 12/24/18 10:46 Last Admin: 12/24/18 11:05 Dose: 10 mg Documented by: [id number] Cosigned by: [id number] Diltiazem HCl (Cardizem) 10 mg IV NOW STA Stop: 12/24/18 11:27 Last Admin: 12/24/18 12:06 Dose: 10 mg Documented by: [id number] Cosigned by: [id number] Lorazepam (Ativan) 1 mg in 2 mls @ 2 mls/min IV NOW STA Stop: 12/24/18 09:59 Last Admin: 12/24/18 10:07 Dose: 2 mls/min Documented by: [id number] Sodium Chloride (Nss 1000ml) 1,000 mls @ 999 mls/hr IV .[id number] ONE Stop: 12/24/18 10:58 Last Infusion: 12/24/18 11:08 Dose: 0 mls/hr Documented by: [id number] Admin: 12/24/18 10:06 Dose: 999 mls/hr Documented by: [id number] Magnesium Sulfate/Dextrose (Magnesium Sulfate / D5w) 1 gm in 100 mls @ 100 mls/hr IV ONE ONE Stop: 12/24/18 12:18 Last Infusion: 12/24/18 13:19 Dose: 0 mls/hr Documented by: [id number] Admin: 12/24/18 12:06 Dose: 100 mls/hr Documented by: [id number] Blood Pressure Blood Pressure Findings: Normal blood pressure Discharge Plan Visit Data *Final* Discharge Date/Time: 12/24/18 14:09 Chief Complaint: Arrhythmia/Palpitations Stated Complaint: afib ED Provider: Tien Vergara Discharge Problem: Atrial fibrillation with rapid ventricular response, Anxiety, Hypomagnesemia Patient Disposition: Admitted As Inpatient Discharge Instructions Interventions: ED Discharge Assessment Last Done: 12/24/18 13:30 The scribe's documentation has been prepared under my direction and personally reviewed by me in its entirety. I confirm that the note above accurately reflects all work, treatment, procedures, and medical decision making performed by me.
[2018-12-24] MEDS ORDERED: DIGOXIN 0.125 MG TAB PO SCH (19:00)
[2018-12-24] MEDS: MAGNESIUM OXIDE 400 MG TAB PO SCH (19:43)
[2018-12-25] MEDS: LORazepam 1 MG TAB PO PRN (05:34)
[2018-12-25] MEDS: MAGNESIUM OXIDE 400 MG TAB PO SCH ×2 (07:31→19:43)
[2018-12-25] MEDS: CYANOCOBALAMIN 500 MCG TABLET (VITAMIN B-12) PO SCH (07:31)
[2018-12-25] MEDS: dilTIAZem HCL 120 MG CAPCR PO SCH (07:31)
--- NOTE | 2018-12-25 10:33 | Cardiology Consultation ---
Date of Consultation December 25, 2018 Assessment & Plan (1) Atrial fibrillation with rapid ventricular response: Unfortunately, the patient does not tolerate her episodes of atrial fibrillation. She has also had difficulty with beta-sarah therapy as a cause significant fatigue. We will undertake a trial of flecainide 50 mg b.i.d. she will be watched closely on the environmental monitoring technician as she did note some pauses of 3 seconds in length while on intravenous Cardizem during her episode of atrial fibrillation. We will continue with oral diltiazem and Xarelto as her anticoagulant. (2) HTN (hypertension): Adequate control on current medical regimen. (3) Anxiety: She may benefit from therapy. History of Present Illness Attending Physician: Gabriel Oliveira MD History of Present Illness Mrs. Crews is a 63-year-old female admitted yesterday with a paroxysm of atrial fibrillation with a rapid ventricular response. This consultation was ordered to assist in her management. Of note, the patient is well known to me from the outpatient setting. The patient has a known history of paroxysmal atrial fibrillation. She was seen in my office last complaining of profound fatigue related to her beta- sarah. We opted to discontinue her metoprolol and increase her losartan. Unfortunately, patient is several episodes of atrial fibrillation requiring emergency room evaluations. Her ventricular response was difficult to control yesterday, and therefore, hospitalization was recommended. The patient's cardiac history began in [facility] 2012 [facility] and a rapid ventricular response. She had a full serologic workup at that time. She also had an normal echocardiogram and exercise treadmill test. As her CHADS score was low, the patient was placed on aspirin alone as her anticoagulant. The patient did well until September 2017. When she developed another episode of atrial fibrillation with a rapid ventricular response. Her serologic workup, TSH level, troponin I were all unremarkable. Unfortunately, the patient does not tolerate her paroxysms of atrial fibrillation. She notices significant fatigue, exertional dyspnea, and palpitations. We have had a long discussion regarding anti arrhythmic therapy. Currently the patient is resting comfortably in bed without complaints. She did convert to sinus rhythm early this morning. Past medical and surgical history 1. Paroxysmal atrial fibrillation-diagnosed April 2012 2. Hypertension 3. Irritable bowel syndrome 4. Anxiety 5. Osteoporosis 6. Cervical [id number] and chemotherapy 7. History of a Social history and lives with her Retired No tobacco or alcohol Family history Mother at age 81 from complications of diabetes Father at age 80 from coronary disease. Had an [place] in his late 50s. A sister has hypertension. Review of systems A 10 point review of systems was negative except for that described above. Allergies Allergy/AdvReac Type Severity Reaction Status Date / Time No Known Allergies Allergy Verified 12/22/18 16:40 Home Medications Home Medications Medication Instructions Recorded Confirmed Type magnesium 200 mg PO BID 05/23/18 12/24/18 History rivaroxaban [Xarelto] 20 mg PO HS 05/23/18 12/24/18 History acetaminophen [Tylenol Arthritis 650 mg PO BID PRN 11/16/18 12/24/18 History Pain] metoprolol succinate [Toprol XL] 0 mg PO DAILY PRN 11/16/18 12/24/18 History diltiazem HCl [Cardizem CD] 120 mg PO DAILY #20 cap 12/22/18 12/24/18 Rx losartan 100 mg PO HS 12/22/18 12/24/18 History cyanocobalamin (vitamin B-12) 0 mcg PO DAILY 12/24/18 12/24/18 History [Vitamin B-12] Patient History Medical History A-fib (Acute) HTN (hypertension) (Chronic) Atrial fibrillation (Inactive) Hypophosphatemia (Inactive) Surgical History No pertinent past surgical history Family History Other No pertinent family history in first degree relatives Social History Preferred Language: Pakistani Communication Ability: Effective Pump Service Supervisor Required: No Beliefs That Will Affect Care: None marital status: Current Living Situation: Spouse Other Information That Helps Us Care for You: No Feels Safe at Home: Yes Safety Concerns: Feels Safe At This Time Smoking Status: Never smoker Hx Alcohol Use: No Hx Substance Use: No Physical Exam Vital Signs (Past 24 Hours): Last Vital Signs Temp 36.4 C L 12/25/18 07:03 Pulse 102 H 12/25/18 07:03 Resp 17 12/25/18 07:03 BP 157/75 H 12/25/18 07:03 Pulse Ox 97 12/25/18 07:03 Physical Exam: In general this is a well-developed well-nourished white female in no acute distress. HEENT exam is negative. Neck is supple with full carotid upstrokes. There are no carotid bruits. No jugular venous distension. There is no thyromegaly. Cardiovascular exam reveals a regular rhythm with a normal S1 and S2. No S3, S4, or murmurs are noted. Lungs are clear without rales, rhonchi, or wheezes. Abdomen is soft and nontender without bruits. Extremities reveal intact radial artery and posterior tibial pulses bilaterally. There is no peripheral edema. Results & Data Diagnostic Findings EKG notes atrial fibrillation with rapid ventricular response. Review of environmental monitoring technician notes conversion to sinus rhythm at approximately 8 a.m. today.
[2018-12-25] MEDS: FLECAINIDE ACETATE 100 MG TABLET PO SCH ×2 (11:32→19:43)
[2018-12-25] MEDS: RIVAROXABAN 20 MG TAB PO SCH (15:58)
--- NOTE | 2018-12-25 17:09 | Hospitalist Progress Note ---
Date of Service December 25, 2018 Assessment & Plan (1) Atrial fibrillation with rapid ventricular response: Provided with a diltiazem drip and received a bolus in the ER. She would prefer to avoid beta-sarah as she does not like the way they make her feel and she also became bradycardic previously. - Entered normal sinus on 12/25 - Continue diltiazem gtt as needed - Started flecainide on 12/25 per cardiology - Switched Xarelto to Eliquis due to interaction between Xarelto and diltiazem which can increase risk of bleeding in patients with CKD (2) CKD (chronic kidney disease) stage 3, GFR 30-59 ml/min: Baseline Cr ~1.0; eGFR ~60. - Presently at baseline - Monitor Cr and avoid nephrotoxic medications (3) HTN (hypertension): Held home losartan on admission for adjustment of other medications. - Monitor BP (4) DVT prophylaxis: On apixaban for her afib Subjective 63yo F/ w hx of paroxysmal afib and anxiety who presents with afib and RVR. Patient feels groggy this afternoon, possibly due to medications given in the hospital. Reports no fevers/chills, chest pain, shortness of breath, abdominal pain, nausea, or vomiting. Physical Exam Vital Signs (Past 24 Hours): Last Vital Signs Temp 36.6 C 12/25/18 15:38 Pulse 66 12/25/18 15:38 Resp 18 12/25/18 15:38 BP 128/81 12/25/18 15:38 Pulse Ox 95 12/25/18 15:38 Constitutional: well nourished, + acute distress and + lethargic Eyes: EOM intact bilaterally; no conjunctival abnormality ENMT: external ear and nose normal, oropharynx normal Neck: trachea midline, no thyromegaly normal visual inspection Respiratory: normal respiratory effort, lungs clear to auscultation no respiratory distress Cardiovascular: RRR, no murmur, no edema Gastrointestinal (Abdomen): Inspection/Auscultation: abdomen normal to inspection; abdomen not distended Musculoskeletal: no cyanosis or clubbing, extremities motor strength 5/5 Skin: no rashes, warm and dry Neurologic: moves all extremities and awake Psychiatric: Orientation: alert, oriented to person and cooperative
[2018-12-26 07:03] LABS: BUN Creatinine Ratio 18.9 (10-20); Calcium 9.1 mg/dl (8.5-10.1); Creatinine Clr Calc Pharmacy 45.7 ml/min; Est GFR (African American) 67.3; Est GFR (Non-African American) 58.1; Potassium 4.4 mmol/L (3.5-5.1)
[2018-12-26] MEDS: CYANOCOBALAMIN 500 MCG TABLET (VITAMIN B-12) PO SCH (08:56)
[2018-12-26] MEDS: FLECAINIDE ACETATE 100 MG TABLET PO SCH (08:57)
[2018-12-26] MEDS: MAGNESIUM OXIDE 400 MG TAB PO SCH (08:57)
[2018-12-26] MEDS: dilTIAZem HCL 120 MG CAPCR PO SCH (08:59)
--- NOTE | 2018-12-26 09:38 | Cardiology Progress Note ---
Date of Service December 26, 2018 Assessment & Plan (1) Atrial fibrillation with rapid ventricular response: Remains in normal sinus rhythm low-dose flecainide. She is also stable on diltiazem. Xarelto was changed to Eliquis due to an interaction with diltiazem. Stable for hospital discharge. (2) HTN (hypertension): Adequate control on current medical regimen. (3) Anxiety: She may benefit from counseling. Subjective Mrs. Crews is resting comfortably in bed without complaints of chest pain, dyspnea, or palpitations. She is tolerating flecainide without difficulty. Physical Exam Vital Signs (Past 24 Hours): Last Vital Signs Temp 36.9 C 12/26/18 07:13 Pulse 63 12/26/18 07:13 Resp 17 12/26/18 07:13 BP 127/79 12/26/18 07:13 Pulse Ox 95 12/26/18 07:13 Physical Exam: In general this is a well-developed well-nourished white female in no acute distress. HEENT exam is negative. Neck is supple with full carotid upstrokes. There are no carotid bruits. No jugular venous distension. There is no thyromegaly. Cardiovascular exam reveals a regular rhythm with a normal S1 and S2. No S3, S4, or murmurs are noted. Lungs are clear without rales, rhonchi, or wheezes. Abdomen is soft and nontender without bruits. Extremities reveal intact radial artery and posterior tibial pulses bilaterally. There is no peripheral edema. Results & Data Diagnostic Findings ECG notes normal sinus rhythm without abnormalities. QRS duration is normal. laboratory monitor notes 1 blocked PAC overnight. No pauses.
--- NOTE | 2018-12-26 18:19 | Discharge Summary ---
Date of Service December 26, 2018 Admission HPI Per Admitting Provider 63 y/o F hx AF, HTN. recent difficulty with rate control. She takes Diltiazem and had been placed on a B sarah which she did not tolerate due to fatigue and bradycardia. she has presented to the ER 3 times in the past 2 weeks with a rapid HR. She denies any CP or SOB. She does feel anxious and fatigued and when this occurs. Initial labs are notable for a low magnesium. PMH: 1) HTN 2) Chronic AF Surgical: Denies Social: No history of drinking or smoking Family: Father possibly due to suicide - history of CAD Mother due to complications of dementia Principal Diagnosis Afib with RVR Discharge Exam Constitutional well nourished, + acute distress and + lethargic Eyes EOM intact bilaterally; no conjunctival abnormality ENMT external ear and nose normal, oropharynx normal Neck trachea midline, no thyromegaly normal visual inspection Respiratory normal respiratory effort, lungs clear to auscultation no respiratory distress Cardiovascular RRR, no murmur, no edema Gastrointestinal (Abdomen) Inspection/Auscultation: abdomen normal to inspection; abdomen not distended Musculoskeletal no cyanosis or clubbing, extremities motor strength 5/5 Skin no rashes, warm and dry Neurologic moves all extremities and awake Psychiatric Orientation: alert, oriented to person and cooperative Discharge Data Allergies Allergy/AdvReac Type Severity Reaction Status Date / Time No Known Allergies Allergy Verified 12/22/18 16:40 Consultations 12/24/18 11:41 ED Decision to Admit Stat 12/24/18 12:03 Consult Cardiology Routine Hospital Course (1) Atrial fibrillation with rapid ventricular response: Provided with a diltiazem drip and received a bolus in the ER. She would prefer to avoid beta-sarah as she does not like the way they make her feel and she also became bradycardic previously. - Entered normal sinus on 12/25 - Started flecainide on 12/25 per cardiology - Will follow up with Dr. Gore in the clinic - Switched Xarelto to Eliquis due to interaction between Xarelto and diltiazem which can increase risk of bleeding in patients with CKD (2) CKD (chronic kidney disease) stage 3, GFR 30-59 ml/min: Baseline Cr ~1.0; eGFR ~60. - Remained at baseline at discharge. (3) HTN (hypertension): Held home losartan on admission for adjustment of other medications. - Held on discharge. Can restart as outpatient if hypertensive. She was normotensive here on discharge. (4) DVT prophylaxis: On apixaban for her afib Total Time Total Time Spent Total Time Spent (In Minutes): 45 Total Time Includes: Examination of the Patient, Discharge Planning, Medication Reconciliation and Communication With Other Providers Discharge Plan Discharge Items Patient Disposition: Home - Self-Care Reason For Visit: RAPID AF Discharge Diagnosis: Atrial fibrillation with rapid heart beat Discharge Goals: Decrease discomfort, Diagnostic testing and Therapeutic intervention Activity: Resume your previous activity Non-emergency contact: Primary Care Provider and Follow Up Manager Call non-emergency contact if: you have any medication questions, your symptoms worsen and your temperature is above 100.5 Follow-up/Referrals: Arthur Gore MD [Follow Up Manager] - 01/18/19 1:30 pm (Please, follow up with Dr. Gore on January 18 at 1:30 pm. *This appointment is scheduled in the [facility]. If you have any questions, call the office at [phone].) Brigido Arnold M.D. [Primary Care Provider] - 01/02/19 12:45 pm (Please, follow up with Dr. Brigido Arnold on TuesdayJanuary 02 at 12:45 pm. *If you need to change this appointment, call the office at [phone].) Diet: Heart Healthy Add Provider Instructions: Ms. Crews, You were admitted to the hospital with atrial fibrillation (afib) with a fast heart rate. Your heart naturally switched back to a normal rhythm (sinus) on its own. With Dr. Gore's help, we started a medication that will hopefully keep you in a normal rhythm. Please take the new medication (flecainide) 2 times per day. You will also take your diltiazem (Cardizem) one time per day. If you have symptoms such as fatigue, tiredness, anxiety, or other non-urgent symptoms, call your impregnator and drier helper for an acute visit to see if you are back in afib. If you have symptoms such as shortness of breath, chest pain, dizziness, or fainting, please go to the Emergency Department. Prescriptions: New flecainide 100 mg Tablet 50 mg PO Q12 Qty: 60 RF: 0 Eliquis 5 mg Tablet 5 mg PO BID Qty: 60 RF: 0 Continued magnesium 200 mg Tablet 200 mg PO BID RF: 0 acetaminophen [Tylenol Arthritis Pain] 650 mg Tablet Extended Release 650 mg PO BID PRN (Reason: Pain) RF: 0 diltiazem HCl [Cardizem CD] 120 mg capsule,extended release 24hr 120 mg PO DAILY Qty: 20 RF: 0 cyanocobalamin (vitamin B-12) [Vitamin B-12] 1,000 mcg Tablet PO DAILY RF: 0 Discontinued Xarelto 20 mg tablet 20 mg PO HS RF: 0 metoprolol succinate [Toprol XL] 50 mg tablet extended release 24 hr PO DAILY PRN (Reason: Elevated Heart Rate) RF: 0 losartan 100 mg tablet 100 mg PO HS RF: 0 Stand-Alone Forms: [facility] [employer] [facility]/Other Patient Handouts: Apixaban Oral tablet, Flecainide Acetate Oral tablet, AFL/Afib, Stroke Prevent Live W Atrial Fib Discharge Orders: Discharge Order (Routine); Ordered 12/26/18 Ordered By: Gabriel Oliveira Admission Data Admit Date/Time: 12/24/18 12:03 Attending Provider: Gabriel Oliveira Admit Provider: Frantz Olson Primary Care Provider: Brigido Arnold Other Providers: Arthur Gore ; Gabriel Oliveira Service: Telemetry Other Interventions: Discharge Summary Assessment (RN) Last Done: 12/26/18 11:20 DC Date/Time DO NOT enter until pt leaves facility: 12/26/18 12:27
[2018-12-26] MEDS ORDERED: APIXABAN 5 MG TABLET PO SCH (21:00)
== END 2018-12-26 12:27 | disposition home or self-care (01) | DRG 310 ==
LOC: ED 09:48 → 2E 12:03 → SUATTDRO 12:03

== ENCOUNTER 2019-09-02 13:12 | Inpatient (IN) ==
[2019-09-02] MEDS ORDERED: ONDANSETRON INJ 2 MG/ML 2 ML VIAL IV STA ×2 (13:41→15:38)
[2019-09-02] MEDS ORDERED: SODIUM CHLORIDE 0.9% 1000ML 1,000 ML IV ONE (13:41)
--- NOTE | 2019-09-02 13:58 | Emergency Department Note ---
History of Present Illness General Chief complaint: Flu Like Symptoms Stated complaint: CHILLS, PAIN IN ABDOMEN, DIARRHEA, DRY HEAVES, SHERRON History of Present Illness Maximum Pain Intensity: 3 This patient is a 64-year-old female who presents ambulatory to the emergency department for evaluation of nausea, abdominal discomfort and diarrhea for the last 3 days. She denies any fever or chills. The abdominal pain is cramping and burning in nature. The patient reports that her had similar symptoms. She denies any black or bloody stools. No coffee-ground emesis or hematemesis. The patient is on Eliquis for history of A. fib. She denies any shortness of breath. No heart palpitations noted. Home Medications Home Medications Medication Instructions Recorded Confirmed Type acetaminophen [Tylenol Arthritis 650 mg PO BID PRN 11/16/18 09/02/19 History Pain] cyanocobalamin (vitamin B-12) 0 mcg PO DAILY 12/24/18 09/02/19 History [Vitamin B-12] losartan 50 mg tablet 50 mg PO BID #180 tab 05/21/19 09/02/19 Rx apixaban 5 mg tablet 5 mg PO BID #60 tab 07/20/19 09/02/19 Rx flecainide 100 mg tablet 100 mg PO Q12 #180 tab 08/13/19 09/02/19 Rx calcium carbonate [Tums] 400 - 600 mg PO UD PRN 09/02/19 09/02/19 History diltiazem HCl [DILT-XR] 120 mg PO DAILY 09/02/19 09/02/19 History acetaminophen [Tylenol Extra 500 mg PO Q6H PRN #0 tab 09/03/19 09/02/19 Rx Strength] loperamide [Imodium A-D] 2 mg PO Q3H PRN #30 tab 09/03/19 Rx magnesium chloride [Slow-Mag] 143 mg PO BID #240 tab 09/03/19 Rx Allergies Allergy/AdvReac Type Severity Reaction Status Date / Time diphenhydramine Allergy Unknown Verified 09/03/19 08:15 lisinopril Allergy Unknown Verified 09/03/19 08:14 metoprolol Allergy Unknown Verified 09/03/19 08:14 Past Med/Surg History Medical History A-fib (Acute) Atrial fibrillation (Inactive) HTN (hypertension) (Chronic) Hypophosphatemia (Inactive) Surgical History No pertinent past surgical history Family History Other No pertinent family history in first degree relatives Social History Preferred Language: Khmer Communication Ability: Effective Visual Impairment: No Limitations Hearing Ability: Normal 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 Beliefs That Will Affect Care: None marital status: Current Living Situation: Spouse Feels Safe at Home: Yes Smoking Status: Unknown if ever smoked Hx Alcohol Use: No Hx Substance Use: No Review of Systems A total of 10 systems reviewed and were otherwise negative Physical Exam Vital Signs Vital Signs - 24 hr 09/02/19 13:14 Temperature 37.1 C Temperature Source Oral Pulse Rate 93 H Respiratory Rate 20 Blood Pressure 121/79 Blood Pressure Mean 93 Pulse Oximetry 97 Oxygen Delivery Method Room Air Sepsis Recent Fever Within 48 Hours No Sepsis Action Taken by Nursing No Action Required Constitutional WD/WN, vitals as above Eyes EOM intact bilaterally ENMT external ear and nose normal, oropharynx normal Neck trachea midline Respiratory normal respiratory effort, lungs clear to auscultation Cardiovascular Irregularly irregular. No murmur. Gastrointestinal (Abdomen) normal bowel sounds, soft, nontender, no hepatosplenomegaly Musculoskeletal no cyanosis or clubbing, extremities motor strength 5/5 Skin no rashes, warm and dry Neurologic Alert and oriented x3. No focal motor deficits. Psychiatric Acting appropriately Course Course Patient was seen and examined Vital signs including blood pressure were reviewed medications list was verified with patient Labs were obtained, and a saline lock was established And EKG was performed and reviewed. The patient was put on a monitor. She was ordered fluids and Zofran. The patient's labs were reviewed. She was ordered magnesium and potassium replacement. Upon reevaluation, we discussed her findings. She voiced understanding. She was in agreement with the disposition. The case was discussed with the [facility] hospitalist group. They kindly agreed to evaluate the patient for possible inpatient management. Consultations Consultation #1: Dr. Dangelo Administered Medications Discontinued Medications Al Hydrox/Mg Hydrox/Simethicone (Maalox) 15 ml PO Q4H PRN PRN Reason: Dyspepsia Stop: 10/02/19 20:11 Last Admin: 09/02/19 20:58 Dose: 15 ml Documented by: [id number] Apixaban (Eliquis) 5 mg PO BID [facility] Stop: 10/02/19 20:59 Last Admin: 09/03/19 07:58 Dose: 5 mg Documented by: [id number] Admin: 09/02/19 21:00 Dose: 5 mg Documented by: [id number] Calcium Carbonate (Tums) 500 - 1,000 mg PO UD PRN PRN Reason: Acid Reflux Stop: 10/02/19 20:11 Last Admin: 09/02/19 20:58 Dose: 1,000 mg Documented by: [id number] Cyanocobalamin (Vitamin B-12) 1,000 mcg PO DAILY [facility] Stop: 10/03/19 08:59 Last Admin: 09/03/19 07:57 Dose: 1,000 mcg Documented by: [id number] Diltiazem HCl (Cardizem Cd) 120 mg PO DAILY [facility] Stop: 10/03/19 08:59 Last Admin: 09/03/19 07:57 Dose: 120 mg Documented by: [id number] Flecainide Acetate (Tambocor) 100 mg PO Q12 ANETA Stop: 10/02/19 20:59 Last Admin: 09/03/19 07:57 Dose: 100 mg Documented by: [id number] Admin: 09/02/19 21:01 Dose: 100 mg Documented by: [id number] Sodium Chloride (Nss 1000ml) 1,000 mls @ 999 mls/hr IV .Q1H1M ONE Stop: 09/02/19 14:41 Last Infusion: 09/02/19 15:24 Dose: 0 mls/hr Documented by: [id number] Admin: 09/02/19 14:04 Dose: 999 mls/hr Documented by: [id number] Potassium Chloride (K Malcom / Wtr) 10 meq in 100 mls @ 100 mls/hr IV ONE ONE Stop: 09/02/19 16:20 Last Infusion: 09/02/19 17:14 Dose: 0 mls/hr Documented by: [id number] Admin: 09/02/19 15:29 Dose: 100 mls/hr Documented by: [id number] Magnesium Sulfate/Dextrose (Magnesium Sulfate / D5w) 1 gm in 100 mls @ 100 mls/hr IV ONE ONE Stop: 09/02/19 16:20 Last Infusion: 09/02/19 16:40 Dose: 0 mls/hr Documented by: [id number] Admin: 09/02/19 15:29 Dose: 100 mls/hr Documented by: [id number] Potassium Chloride/Sodium Chloride (Normal Saline W/20 Meq Kcl) 20 meq in 1,000 mls @ 80 mls/hr IV .[id number] ANETA Stop: 10/02/19 20:59 Last Infusion: 09/03/19 08:10 Dose: 0 mls/hr Documented by: [id number] Infusion: 09/03/19 08:06 Dose: 0 mls/hr Documented by: [id number] Admin: 09/03/19 07:59 Dose: 80 mls/hr Documented by: [id number] Infusion: 09/03/19 07:59 Dose: 80 mls/hr Documented by: [id number] Admin: 09/02/19 21:01 Dose: 80 mls/hr Documented by: [id number] Magnesium Sulfate/Dextrose (Magnesium Sulfate / D5w) 1 gm in 100 mls @ 100 mls/hr IV Q1H ANETA Stop: 09/03/19 08:44 Last Infusion: 09/03/19 10:58 Dose: 0 mls/hr Documented by: [id number] Admin: 09/03/19 09:15 Dose: 100 mls/hr Documented by: [id number] Infusion: 09/03/19 09:00 Dose: 100 mls/hr Documented by: [id number] Infusion: 09/03/19 08:06 Dose: 100 mls/hr Documented by: [id number] Infusion: 09/03/19 08:05 Dose: 0 mls/hr Documented by: [id number] Admin: 09/03/19 07:59 Dose: 100 mls/hr Documented by: [id number] Lactated Ringer's (Lr) 1,000 mls @ 80 mls/hr IV .[id number] ANETA Stop: 10/03/19 08:14 Last Infusion: 09/03/19 10:58 Dose: 0 mls/hr Documented by: [id number] Admin: 09/03/19 09:15 Dose: 80 mls/hr Documented by: [id number] Loperamide HCl (Imodium) 2 mg PO NOW STA Stop: 09/03/19 09:58 Last Admin: 09/03/19 11:14 Dose: 2 mg Documented by: [id number] Losartan Potassium (Cozaar) 50 mg PO BID ANETA Stop: 10/02/19 20:59 Last Admin: 09/03/19 07:58 Dose: 50 mg Documented by: [id number] Admin: 09/02/19 20:58 Dose: 50 mg Documented by: [id number] Magnesium Oxide (Mag-Ox) 400 mg PO BID ANETA Stop: 10/02/19 20:59 Last Admin: 09/03/19 08:00 Dose: 400 mg Documented by: [id number] Admin: 09/02/19 20:59 Dose: 400 mg Documented by: [id number] Ondansetron HCl (Zofran) 4 mg IV NOW STA Stop: 09/02/19 13:42 Last Admin: 09/02/19 14:04 Dose: 4 mg Documented by: [id number] Ondansetron HCl (Zofran) 4 mg IV NOW STA Stop: 09/02/19 15:39 Last Admin: 09/02/19 15:50 Dose: 4 mg Documented by: [id number] Pneumococcal Polyvalent Vaccine (Pneumovax-23) 25 mcg IM .ONCE ONE Stop: 09/03/19 08:01 Last Admin: 09/03/19 12:40 Dose: 25 mcg Documented by: [id number] Potassium Chloride (Klor-Con M20) 40 meq PO NOW STA Stop: 09/02/19 15:22 Last Admin: 09/02/19 15:30 Dose: 40 meq Documented by: [id number] Medical Decision Making Differential Diagnosis Differential diagnosis: Viral GI illness, pancreatitis, gallbladder pathology, cardiac abnormality, bowel obstruction, malignancy, among others This patient is a 64-year-old female who presents to the emergency department with complaints of nausea, diarrhea and abdominal pain. On exam, her abdomen was benign. She was afebrile. As her had similar symptoms, this is likely contagious/viral illness. The patient's labs reveal significant electrolyte abnormalities. For this reason, it was felt that hospitalist evaluation was appropriate. The patient was in agreement. Medical Records Attestation: I reviewed the patient's medical records. Home Medications Current Medication List: was personally reviewed by me Laboratory Data Attestation: I reviewed the patient's lab results. Result diagrams: 09/03/19 05:30 09/03/19 05:30 Lab Results 09/02/19 09/02/19 Range/Units 13:55 13:55 WBC 8.41 (4.8-10.8) K/uL RBC 4.35 (4.2-5.4) M/uL Hgb 13.5 (12.0-16.0) g/dL Hct 39.4 (37-47) % MCV 90.6 (80-100) fL MCH 31.0 (25-34) pg MCHC 34.3 (32-36) g/dL RDW Std Deviation 40.8 (36.4-46.3) fL RDW Coeff of Anmol 12.3 (11.5-14.5) % Plt Count 301 (130-400) K/uL MPV 9.5 (7.4-10.4) fL Immature Gran % (Auto) 0.2 % Neut % (Auto) 64.8 % Lymph % (Auto) 25.2 % Cedar % (Auto) 6.7 % Eos % (Auto) 2.9 % Baso % (Auto) 0.2 % Immature Gran # (Auto) 0.02 (0.00-0.02) K/uL Neut # (Auto) 5.45 (1.4-6.5) K/uL Lymph # (Auto) 2.12 (1.2-3.4) K/uL Cedar # (Auto) 0.56 (0.11-0.59) K/uL Eos # (Auto) 0.24 (0-0.5) K/uL Baso # (Auto) 0.02 (0-0.2) K/uL Sodium 136 (136-145) mmol/L Potassium 2.9 L (3.5-5.1) mmol/L Chloride 103 (98-107) mmol/L Carbon Dioxide 24 (21-32) mmol/L Anion Gap 10.0 (3-11) BUN 24 H (7-18) mg/dl Creatinine 1.34 H (0.6-1.2) mg/dl Est Cr Clr Drug Dosing Not Reportable Est GFR ( Amer) 48.1 Est GFR (Non-Af Amer) 41.5 BUN/Creatinine Ratio 18.2 (10-20) Glucose 114 H (70-99) mg/dl Calcium 8.7 (8.5-10.1) mg/dl Magnesium 1.2 L (1.8-2.4) mg/dl Total Bilirubin 0.5 (0.2-1) mg/dl AST 18 (15-37) U/L ALT 40 (12-78) U/L Alkaline Phosphatase 117 (45-117) U/L Troponin I < 0.015 (0-0.045) ng/ml Total Protein 7.2 (6.4-8.2) gm/dl Albumin 3.8 (3.4-5.0) gm/dl Globulin 3.4 (2.5-4.0) gm/dl Albumin/Globulin Ratio 1.1 (0.9-2) Lipase 270 (73-393) U/L ECG Data Attestation: I personally reviewed and interpreted this ECG as follows: Indication: + other Rate (beats per minute): 80 Rhythm: + normal sinus ECG Findings: + PVCs Additional Comments: No acute ischemic changes noted. Frequent PVCs now noted w hen compared to prior EKG. Prescription Drug Monitoring [place] Drug Monitoring Program reviewed and no issues identified Blood Pressure Blood Pressure Findings: Normal blood pressure MDM Narrative See course Impression & Plan Acute hypokalemia, Hypomagnesemia, Gastroenteritis Discharge Plan Visit Data *Final* Discharge Date/Time: 09/02/19 19:32 Chief Complaint: Flu Like Symptoms Stated Complaint: CHILLS, PAIN IN ABDOMEN, DIARRHEA, DRY HEAVES, SHERRON ED Provider: Tien Vergara ED Midlevel Provider: Raina Manzanares Discharge Problem: Acute hypokalemia, Hypomagnesemia, Gastroenteritis Patient Disposition: Admitted As Inpatient Condition: Good Discharge Instructions Interventions: ED Discharge Assessment Last Done: 09/02/19 19:32
[2019-09-02 14:03] LABS: Basophils # (auto) 0.02 K/uL (0-0.2); Basophils % (auto) 0.2 %; Eosinophils # (auto) 0.24 K/uL (0-0.5); Eosinophils % (auto) 2.9 %; Hematocrit (blood only) 39.4 % (37-47); Hemoglobin 13.5 g/dL (12.0-16.0); Immature Granulocytes # (auto) 0.02 K/uL (0.00-0.02); Immature Granulocytes % (auto) 0.2 %; Lymphocytes # (auto) 2.12 K/uL (1.2-3.4); Lymphocytes % (auto) 25.2 %; Mean Corpuscular Hgb Conc 34.3 g/dL (32-36); Mean Corpuscular Volume 90.6 fL (80-100); Mean Platelet Volume 9.5 fL (7.4-10.4); Monocytes # (auto) 0.56 K/uL (0.11-0.59); Monocytes % (auto) 6.7 %; Neutrophils # (auto) 5.45 K/uL (1.4-6.5); Neutrophils % (auto) 64.8 %; Platelet Count 301 K/uL (130-400); RDW Coefficient of Variation 12.3 % (11.5-14.5); RDW Standard Deviation 40.8 fL (36.4-46.3); Red Blood Count 4.35 M/uL (4.2-5.4); White Blood Count 8.41 K/uL (4.8-10.8)
[2019-09-02 14:23] LABS: Alanine Aminotransferase 40 U/L (12-78); Albumin Level 3.8 gm/dl (3.4-5.0); Aspartate Aminotransferase 18 U/L (15-37); BUN Creatinine Ratio 18.2 (10-20); Blood Urea Nitrogen 24 mg/dl (7-18); Calcium 8.7 mg/dl (8.5-10.1); Carbon Dioxide 24 mmol/L (21-32); Chloride 103 mmol/L (98-107); Est GFR (African American) 48.1; Est GFR (Non-African American) 41.5; Glucose 114 mg/dl (70-99); Lipase 270 U/L (73-393); Magnesium 1.2 mg/dl (1.8-2.4); Potassium 2.9 mmol/L (3.5-5.1); Sodium 136 mmol/L (136-145)
[2019-09-02 14:26] LABS: Albumin Globulin Ratio 1.1 (0.9-2); Alkaline Phosphatase 117 U/L (45-117); Bilirubin,Total 0.5 mg/dl (0.2-1); Globulin 3.4 gm/dl (2.5-4.0); Total Protein 7.2 gm/dl (6.4-8.2)
[2019-09-02 15:20] LABS: Troponin I < 0.015 ng/ml (0-0.045)
[2019-09-02] MEDS ORDERED: POTASSIUM CHLORIDE 20 MEQ TABCR PO STA (15:21)
[2019-09-02] MEDS ORDERED: POTASSIUM CHLORIDE / WTR 10 MEQ/100 ML PLCT IV ONE (15:21)
[2019-09-02] MEDS ORDERED: MAGNESIUM SULFATE / D5W 1 GM/100 ML BAG IV ONE (15:21)
--- NOTE | 2019-09-02 20:03 | History & Physical Report ---
Date of Service September 02, 2019 Assessment & Plan (1) Hypomagnesemia: Admit to PCU on telemetry Vital signs every 4 hours Replenish magnesium to keep above 2 Replenish potassium to keep above 4 Monitor electrolytes closely IV fluid hydration with normal saline with potassium at 80 cc/h Continue magnesium p.o. Repeat labs in 4 hours and replenished as needed. Present on Admission?: Yes (2) Acute kidney injury: Avoid nephrotoxic agents. Continue gentle fluid hydration. Monitor electrolytes, creatinine and GFR. Patient baseline of creatinine is 1.02-1.13 and today is 1.34. GFR is usually 58.1-51.3 and now is 41.5. Present on Admission?: Yes (3) Atrial fibrillation with rapid ventricular response: Patient rate is properly controlled. Continue losartan 50 mg p.o. twice daily, continue flecainide 100 mg p.o. every 12, continue diltiazem 120 mg p.o. daily, continue apixaban 5 mg p.o. twice daily. Present on Admission?: Yes (4) HTN (hypertension): Continue losartan 50 mg p.o. twice daily Present on Admission?: Yes History of Present Illness Chief Complaint: Generalized weakness, nausea and abdominal discomfort. Primary Care Provider: Brigido Arnlod MD Patient is a 64 years old female with past medical history of atrial fibrilla tion on Eliquis and hypertension who came to the emergency room with a complaint of generalized weakness, nausea, vomiting and abdominal discomfort associated with diarrhea for 3 days. Patient reports that diarrhea stopped yesterday night and that both she and her had gastroenteritis. Patient is now in the ER because of generalized weakness and wanted to check herself in. Patient denies chills headache, chest pain, shortness of breath, abdominal pain, frequency, urgency, melena, hematuria, dysuria, hematochezia. Patient denies fever. Her p.o. intake is slowly improving. Labs are reviewed which shows: WBCs of 8.41, hemoglobin 13.5, hematocrit 39.4, platelets 301, sodium 136, potassium 2.9, chloride 103, anion gap 10, BUN 24, creatinine 1.34, GFR 41.5, glucose 114, calcium 8.7, magnesium 1.2, AST 18, ALT 40, troponin 0 0.015, lipase 270. TSH pending. Patient potassium and magnesium were replenished in the ER we will continue monitoring. Patient admitted to PCU on telemetry for monitoring of hypomagnesemia and hypokalemia. Allergies Allergy/AdvReac Type Severity Reaction Status Date / Time No Known Allergies Allergy Verified 01/01/19 19:03 Home Medications Home Medications Medication Instructions Recorded Confirmed Type magnesium 200 mg PO BID 05/23/18 09/02/19 History acetaminophen [Tylenol Arthritis 650 mg PO BID PRN 11/16/18 09/02/19 History Pain] cyanocobalamin (vitamin B-12) 0 mcg PO DAILY 12/24/18 09/02/19 History [Vitamin B-12] losartan 50 mg tablet 50 mg PO BID #180 tab 05/21/19 09/02/19 Rx apixaban 5 mg tablet 5 mg PO BID #60 tab 07/20/19 09/02/19 Rx flecainide 100 mg tablet 100 mg PO Q12 #180 tab 08/13/19 09/02/19 Rx acetaminophen [Tylenol Extra 1,500 mg PO Q6H PRN 09/02/19 09/02/19 History Strength] calcium carbonate [Tums] 400 - 600 mg PO UD PRN 09/02/19 09/02/19 History diltiazem HCl [DILT-XR] 120 mg PO DAILY 09/02/19 09/02/19 History Past Med/Surg History Medical History A-fib (Acute) Atrial fibrillation (Inactive) HTN (hypertension) (Chronic) Hypophosphatemia (Inactive) Surgical History No pertinent past surgical history Family History Other No pertinent family history in first degree relatives Social History Preferred Language: Czech Communication Ability: Effective Visual Impairment: No Limitations Hearing Ability: Normal 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 Beliefs That Will Affect Care: None marital status: Current Living Situation: Spouse Other Information That Helps Us Care for You: No Feels Safe at Home: Yes Safety Concerns: Feels Safe At This Time Smoking Status: Unknown if ever smoked Hx Alcohol Use: No Hx Substance Use: No Review of Systems Review of Systems: All systems reviewed & are unremarkable except as noted in HPI & below Physical Exam Constitutional: WD/WN, vitals as above well developed and + ill appearing Eyes: EOM intact bilaterally ENMT: external ear and nose normal, oropharynx normal Neck: trachea midline Respiratory: normal respiratory effort, lungs clear to auscultation Gastrointestinal (Abdomen): normal bowel sounds, soft, nontender, no hepatosplenomegaly Musculoskeletal: no cyanosis or clubbing, extremities motor strength 5/5 Skin: no rashes, warm and dry Neurologic: patellar DTR's 2+ bilat, sensation intact Psychiatric: A+Ox3, euthymic affect Lymphatic: no cervical or axillary lymphadenopathy Results & Data Vital Signs (Past 12 Hours) Vital Signs Temp Pulse Pulse Resp BP BP Pulse Ox 09/02/19 19:15 81 18 140/76 09/02/19 19:00 74 20 09/02/19 18:40 74 19 09/02/19 18:20 79 22 09/02/19 18:00 79 20 09/02/19 17:40 80 19 09/02/19 17:34 79 20 116/77 09/02/19 17:20 83 19 09/02/19 17:00 85 18 109/82 09/02/19 16:40 94 H 22 09/02/19 16:30 83 22 122/77 09/02/19 16:20 81 22 09/02/19 16:13 95 H 84 24 136/72 136/72 97 09/02/19 16:05 84 21 09/02/19 13:14 37.1 C 93 H 20 121/79 97 Code Status & VTE Plan Code Status Full code PG Care Time/CCT Total # of Minutes Spent Total Time Spent with Patient: Total time spent is greater than 50% in coordination of care (as documented) at patient's floor/unit and/or counseling patient:
[2019-09-02] MEDS ORDERED: MAGNESIUM HYDROXIDE SUSP 30 ML UDC PO PRN (20:12)
[2019-09-02] MEDS ORDERED: ACETAMINOPHEN 325 MG TAB PO PRN (20:12)
[2019-09-02] MEDS ORDERED: ALUMINUM/MAGNESIUM SUSP 30 ML UDC PO PRN (20:12)
[2019-09-02] MEDS ORDERED: NON-FORMULARY MEDICATION (Acetaminophen [Tylenol Arthritis Pain] 650 MG) PO PRN (20:12)
[2019-09-02] MEDS ORDERED: POLYETHYLENE (MIRALAX) 17 GM PACK PO PRN (20:12)
[2019-09-02] MEDS ORDERED: CALCIUM CARBONATE 500 MG CHEWABLE TAB PO PRN (20:12)
[2019-09-02] MEDS: LOSARTAN POTASSIUM 50 MG TAB PO SCH (20:58)
[2019-09-02] MEDS: MAGNESIUM OXIDE 400 MG TAB PO SCH (20:59)
[2019-09-02] MEDS: APIXABAN 5 MG TABLET PO SCH (21:00)
[2019-09-02] MEDS: NSS + 20MEQ KCL 20 MEQ/1,000 ML BAG IV SCH (21:01)
[2019-09-02] MEDS: FLECAINIDE ACETATE 100 MG TABLET PO SCH (21:01)
[2019-09-03 01:37] LABS: BUN Creatinine Ratio 17.2 (10-20); Calcium 7.9 mg/dl (8.5-10.1); Creatinine Clr Calc Pharmacy 47.9 ml/min; Est GFR (African American) 68.5; Est GFR (Non-African American) 59.1; Magnesium 1.6 mg/dl (1.8-2.4); Potassium 3.5 mmol/L (3.5-5.1); Thyroid Stimulating Hormone 1.21 uIu/ml (0.300-4.500)
[2019-09-03 05:44] LABS: Basophils # (auto) 0.02 K/uL (0-0.2); Basophils % (auto) 0.3 %; Eosinophils % (auto) 5.2 %; Hematocrit (blood only) 36.7 % (37-47); Hemoglobin 12.1 g/dL (12.0-16.0); Immature Granulocytes # (auto) 0.01 K/uL (0.00-0.02); Immature Granulocytes % (auto) 0.2 %; Lymphocytes # (auto) 1.82 K/uL (1.2-3.4); Lymphocytes % (auto) 31.7 %; Mean Corpuscular Hemoglobin 30.6 pg (25-34); Mean Corpuscular Volume 92.7 fL (80-100); Mean Platelet Volume 9.3 fL (7.4-10.4); Monocytes # (auto) 0.33 K/uL (0.11-0.59); Monocytes % (auto) 5.7 %; Neutrophils # (auto) 3.27 K/uL (1.4-6.5); Neutrophils % (auto) 56.9 %; Platelet Count 230 K/uL (130-400); RDW Coefficient of Variation 12.6 % (11.5-14.5); RDW Standard Deviation 42.5 fL (36.4-46.3); Red Blood Count 3.96 M/uL (4.2-5.4); White Blood Count 5.75 K/uL (4.8-10.8)
[2019-09-03 06:18] LABS: Albumin Level 2.9 gm/dl (3.4-5.0); BUN Creatinine Ratio 15.1 (10-20); Creatinine Clr Calc Pharmacy 47.1 ml/min; Est GFR (African American) 66.8; Est GFR (Non-African American) 57.7; Magnesium 1.5 mg/dl (1.8-2.4); Potassium 3.6 mmol/L (3.5-5.1)
[2019-09-03 06:23] LABS: Bilirubin,Total 0.4 mg/dl (0.2-1); Globulin 2.9 gm/dl (2.5-4.0); Total Protein 5.8 gm/dl (6.4-8.2)
[2019-09-03] MEDS: FLECAINIDE ACETATE 100 MG TABLET PO SCH (07:57)
[2019-09-03] MEDS: APIXABAN 5 MG TABLET PO SCH (07:58)
[2019-09-03] MEDS: LOSARTAN POTASSIUM 50 MG TAB PO SCH (07:58)
[2019-09-03] MEDS: MAGNESIUM SULFATE / D5W 1 GM/100 ML BAG IV SCH ×2 (07:59→09:15)
[2019-09-03] MEDS: NSS + 20MEQ KCL 20 MEQ/1,000 ML BAG IV SCH (07:59)
[2019-09-03] MEDS: MAGNESIUM OXIDE 400 MG TAB PO SCH (08:00)
[2019-09-03] MEDS ORDERED: PNEUMOCOCCAL Polysaccharide Vaccine 25mcg/0.5mL vial/Syr IM ONE (08:00)
[2019-09-03] MEDS ORDERED: LACTATED RINGER'S 1,000 ML IV SCH (08:15)
[2019-09-03] MEDS ORDERED: dilTIAZem HCL 120 MG CAPCR PO SCH (09:00)
[2019-09-03] MEDS ORDERED: CYANOCOBALAMIN 500 MCG TABLET (VITAMIN B-12) PO SCH (09:00)
[2019-09-03] MEDS ORDERED: LOPERAMIDE HCL 2 MG CAP PO STA (09:57)
--- NOTE | 2019-09-03 14:40 | Discharge Summary ---
Date of Service September 03, 2019 Admission HPI Per Admitting Provider Patient is a 64 years old female with past medical history of atrial fibrillation on Eliquis and hypertension who came to the emergency room with a complaint of generalized weakness, nausea, vomiting and abdominal discomfort associated with diarrhea for 3 days. Patient reports that diarrhea stopped yesterday night and that both she and her had gastroenteritis. Patient is now in the ER because of generalized weakness and wanted to check herself in. Patient denies chills headache, chest pain, shortness of breath, abdominal pain, frequency, urgency, melena, hematuria, dysuria, hematochezia. Patient d enies fever. Her p.o. intake is slowly improving. Labs are reviewed which shows: WBCs of 8.41, hemoglobin 13.5, hematocrit 39.4, platelets 301, sodium 136, potassium 2.9, chloride 103, anion gap 10, BUN 24, creatinine 1.34, GFR 41.5, glucose 114, calcium 8.7, magnesium 1.2, AST 18, ALT 40, troponin 0 0.015, lipase 270. TSH pending. Patient potassium and magnesium were replenished in the ER we will continue monitoring. Patient admitted to PCU on telemetry for monitoring of hypomagnesemia and hypokalemia. Admission Exam Per Admitting Provider Constitutional: WD/WN, vitals as above well developed and + ill appearing Eyes: EOM intact bilaterally ENMT: external ear and nose normal, oropharynx normal Neck: trachea midline Respiratory: normal respiratory effort, lungs clear to auscultation Gastrointestinal (Abdomen): normal bowel sounds, soft, nontender, no hepatosplenomegaly Musculoskeletal: no cyanosis or clubbing, extremities motor strength 5/5 Skin: no rashes, warm and dry Neurologic: patellar DTR's 2+ bilat, sensation intact Psychiatric: A+Ox3, euthymic affect Lymphatic: no cervical or axillary lymphadenopathy Principal Diagnosis Viral gastroenteritis Discharge Exam Constitutional WD/WN, vitals as above Eyes + anicteric sclerae; normal pupil size ENMT external ear and nose normal, oropharynx normal Neck trachea midline Respiratory normal respiratory effort, lungs clear to auscultation Cardiovascular RRR, no murmur, no edema Gastrointestinal (Abdomen) normal bowel sounds, soft, nontender, no hepatosplenomegaly Musculoskeletal no cyanosis or clubbing, extremities motor strength 5/5 Skin no rashes, warm and dry Neurologic moves all extremities and awake; not confused Psychiatric A+Ox3, euthymic affect Lymphatic no cervical or axillary lymphadenopathy Discharge Data Allergies Allergy/AdvReac Type Severity Reaction Status Date / Time diphenhydramine Allergy Unknown Verified 09/03/19 08:15 lisinopril Allergy Unknown Verified 09/03/19 08:14 metoprolol Allergy Unknown Verified 09/03/19 08:14 Consultations 09/02/19 17:53 ED Decision to Admit Stat Hospital Course (1) Gastroenteritis: Flores Gong is a 64 year old female admitted to [facility] from September 02 to 2018 due to generalized weakness, abdominal pain, diarrhea, nausea and vomiting. She was diagnosed with viral gastroenteritis and appeared to improve with conservative treatment. She was also diagnosed with low magnesium levels, suspected secondary to diarrhea and r ecommend taking supplementation as prescribed and follow up with her PCP. She was recommended to take Imodium as needed and discuss chronic treatment of her IBS-D with her primary care provider since she takes this on a regular basis. (2) Hypomagnesemia: (3) Acute kidney injury: (4) Atrial fibrillation with rapid ventricular response: (5) HTN (hypertension): Total Time Total Time Spent Total Time Spent (In Minutes): 35 Total Time Includes: Examination of the Patient, Discharge Planning and Medication Reconciliation Discharge Plan Discharge Items Patient Disposition: Home - Self-Care Reason For Visit: GENERALIZED WEAKNESS, HYPOMAGNESEMIA Discharge Diagnosis: Viral gastroenteritis Condition on Discharge: Good Activity: Resume your previous activity Non-emergency contact: Primary Care Provider Call non-emergency contact if: you have any medication questions, your symptoms worsen and your temperature is above 101 Follow-up/Referrals: Brigido Arnold MD [Primary Care Provider] - 09/11/19 12:45 pm (Please, follow up at Dr. Arnold's office on TuesdaySeptember 11 at 12:45 pm. *If you need to change this appointment, call the office at [phone].) Diet: Regular Addtl Attending Provider Instructions: You were admitted to [facility] from September 02 to 2018 due to generalized weakness, abdominal pain, diarrhea, nausea and vomiting. You were diagnosed with viral gastroenteritis and appeared to improve with conservative treatment. You were also diagnosed with low magnesium levels and recommend taking supplementation as prescribed below and following up with your PCP regarding this. Continue to take Imodium as needed and discuss chronic treatment of your IBS-D with your primary care provider. Pending Studies at Discharge: No Stand-Alone Forms: My [facility], Smoking Cessation Medications and DC Order Prescriptions: New Slow-Mag 71.5 mg tablet,delayed release (DR/EC) 143 mg PO BID Qty: 240 RF: 0 loperamide [Imodium A-D] 2 mg tablet 2 mg PO Q3H PRN (Reason: loose stool) Qty: 30 RF: 0 Continued losartan 50 mg tablet 50 mg PO BID Qty: 180 RF: 3 Eliquis 5 mg tablet 5 mg PO BID Qty: 60 RF: 2 flecainide 100 mg tablet 100 mg PO Q12 Qty: 180 RF: 1 acetaminophen [Tylenol Arthritis Pain] 650 mg Tablet Extended Release 650 mg PO BID PRN (Reason: Pain) RF: 0 cyanocobalamin (vitamin B-12) [Vitamin B-12] 1,000 mcg Tablet 0 mcg PO DAILY RF: 0 calcium carbonate [Tums] 200 mg calcium (500 mg) Tablet,Chewable 400 - 600 mg PO UD PRN (Reason: Acid Reflux) RF: 0 diltiazem HCl [DILT-XR] 120 mg capsule,ext.rel 24h degradable 120 mg PO DAILY RF: 0 Changed acetaminophen [Tylenol Extra Strength] 500 mg Tablet 500 mg PO Q6H PRN (Reason: Pain) Qty: 0 RF: 0 Discontinued magnesium 200 mg Tablet 200 mg PO BID RF: 0 Discharge Orders: Discharge Order (Routine); Ordered 09/03/19 Ordered By: Ronald Molina/Other Patient Handouts: ED Gastroenteritis Viral Admission Data Admit Date/Time: 09/02/19 19:03 Attending Provider: Ronald Bains Admit Provider: Clay Dangelo Primary Care Provider: Brigido Arnold Other Providers: Clay Dangelo Other Interventions: Discharge Summary Assessment (RN) Last Done: 09/03/19 14:46 DC Date/Time DO NOT enter until pt leaves facility: 09/03/19 15:20
== END 2019-09-03 15:20 | disposition home or self-care (01) | DRG 392 ==
LOC: ED 13:12 → 2E 19:03 → SUATTDRO 19:03 → 2E 19:32

== ENCOUNTER 2019-10-17 08:22 | Inpatient (IN) ==
[2019-10-17] MEDS ORDERED: SODIUM CHLORIDE 0.9% 1000ML 1,000 ML IV ONE (09:20)
[2019-10-17 09:28] LABS: Basophils # (auto) 0.03 K/uL (0-0.2); Basophils % (auto) 0.3 %; Eosinophils # (auto) 0.14 K/uL (0-0.5); Eosinophils % (auto) 1.5 %; Hematocrit (blood only) 41.1 % (37-47); Hemoglobin 14.7 g/dL (12.0-16.0); Immature Granulocytes # (auto) 0.02 K/uL (0.00-0.02); Immature Granulocytes % (auto) 0.2 %; Lymphocytes # (auto) 1.47 K/uL (1.2-3.4); Lymphocytes % (auto) 15.6 %; Mean Corpuscular Hemoglobin 31.3 pg (25-34); Mean Corpuscular Hgb Conc 35.8 g/dL (32-36); Mean Corpuscular Volume 87.4 fL (80-100); Mean Platelet Volume 9.3 fL (7.4-10.4); Monocytes # (auto) 0.46 K/uL (0.11-0.59); Monocytes % (auto) 4.9 %; Neutrophils # (auto) 7.31 K/uL (1.4-6.5); Neutrophils % (auto) 77.5 %; Platelet Count 300 K/uL (130-400); RDW Coefficient of Variation 12.5 % (11.5-14.5); RDW Standard Deviation 40.5 fL (36.4-46.3); White Blood Count 9.43 K/uL (4.8-10.8)
[2019-10-17 09:49] LABS: Alanine Aminotransferase 39 U/L (12-78); Albumin Globulin Ratio 1.2 (0.9-2); Albumin Level 4.4 gm/dl (3.4-5.0); Alkaline Phosphatase 109 U/L (45-117); Aspartate Aminotransferase 11 U/L (15-37); BUN Creatinine Ratio 16.1 (10-20); Bilirubin,Total 0.7 mg/dl (0.2-1); Blood Urea Nitrogen 28 mg/dl (7-18); Calcium 9.4 mg/dl (8.5-10.1); Carbon Dioxide 25 mmol/L (21-32); Chloride 106 mmol/L (98-107); Est GFR (Non-African American) 30.2; Globulin 3.7 gm/dl (2.5-4.0); Glucose 85 mg/dl (70-99); Lipase 190 U/L (73-393); Magnesium 1.4 mg/dl (1.8-2.4); Phosphorus 2.6 mg/dl (2.5-4.9); Potassium 2.4 mmol/L (3.5-5.1); Sodium 138 mmol/L (136-145); Total Protein 8.1 gm/dl (6.4-8.2)
[2019-10-17] MEDS ORDERED: POTASSIUM CHLORIDE 20 MEQ TABCR PO STA (09:51)
[2019-10-17] MEDS: POTASSIUM CHLORIDE / WTR 10 MEQ/100 ML PLCT IV SCH ×2 (10:02→11:02)
[2019-10-17] MEDS: MAGNESIUM SULFATE / D5W 1 GM/100 ML BAG IV SCH ×4 (10:02→15:01)
[2019-10-17] MEDS ORDERED: LACTATED RINGER'S 1,000 ML IV ONE ×2 (11:29→17:49)
--- NOTE | 2019-10-17 11:29 | History & Physical Report ---
Date of Service October 17, 2019 Assessment & Plan (1) Nausea and vomiting: (2) Gastritis: Suspect this is the cause of her nausea and vomiting. Inadequately treated previously as she stopped pantoprazole after only 3 days due to concern it was causing her diarrhea although she always gets diarrhea after her episodes. Most recent episode likely caused by orange juice. However underlying precipitating factor is her high stress levels with anxiety around the Anish period associated with the of her ex- (see HPI). Given her concern with pantoprazole (although there is no good reason she cannot try this again other than psychological) will treat with IV famotidine. Given duration of symptoms and planned possible EGD as outpatient anyway will consult GI to see if this is warranted as inpatient. If no EGD planned she would likely benefit from carafate but will defer for now until EGD decision has been made. (3) Acute hypokalemia: Severe 2.4. Secondary to vomiting and diarrhea. K rider x2 + 40meq PO given in ER. Will closely monitor with labs later today (4) Hypomagnesemia: Symptomatic with cramping at night Mg 1.4 (5) A-fib: Diagnosed initially 2 years prior. Currently well controlled on flecainide and diltiazem and in normal sinus rhythm at present. Anticoagulated with apixaban 5mg BID. (6) HTN (hypertension): (7) Anxiety: (8) Diarrhea: (9) Hypomagnesemia: (10) Hypokalemia: (11) DVT prophylaxis: (12) Acute kidney failure: History of Present Illness Chief Complaint: Vomiting, diarrhea, hypokalemia Primary Care Provider: Brigido Arnold MD Flores Gong is a 64 year old female who presents to the ER after getting a call from her PCP office that her potassium was critically low. She reports a recent history of distinct episodes of nausea, vomiting, belching followed by diarrhea. First episode I actually discharged her in August and suspected viral gastroenteritis at the time. On this episode she did have fevers and chills which was unique compared to her other episodes. In addition her was also sick with a similar illness just after the patient was sick. She feels like she managed to completely recover from this first episode However episode returned in September and she returned to the ER when CT showed non specific enteritis. Episode started with nausea, vomiting, belching followed by watery diarrhea. She is unsure what set off this episode but she went to [facility] after the ER and was much more sick following this for a number of days. Took a week to fully improve. She was given pantoprazole however after her diarrhea started she stopped this after only 3 days as she read the side effects of pantoprazole include diarrhea. Her most recent episode started on Tuesday (4 days prior to admission) and very correlated to orange juice. She is no longer vomiting but still having watery diarrhea. She went to her PCP office yesterday and lab work was taken and she was called yesterday to come to the ER due to severe hypokalemia. She does note night time cramps likely related to her hypomagnesemia and hypokalemia. Diarrhea - appears to correlate to after her vomiting illness. 1-2 times/day. Watery. Lab work sent to [facility], not available at this time but she says stool studies came back negative other than ova and parasites which is still pending at this time. No antibiotics in the last 2 months. She reports high levels of stress currently related to the of her ex- where she had to make the decision to take out his feeding tube around Anish time. She reports always getting depressed and having high anxiety at this time of year and wonders whether her stress levels have anything to do with her current symptoms. She takes hydroxyzine for anxiety PRN which sometimes works. Allergies Allergy/AdvReac Type Severity Reaction Status Date / Time No Known Allergies Allergy Unverified 10/17/19 09:30 Home Medications Home Medications Medication Instructions Recorded Confirmed Type acetaminophen [Tylenol Arthritis 650 mg PO BID PRN 11/16/18 10/17/19 History Pain] losartan 50 mg tablet 50 mg PO BID #180 tab 05/21/19 10/17/19 Rx apixaban 5 mg tablet 5 mg PO BID #60 tab 07/20/19 10/17/19 Rx flecainide 100 mg tablet 100 mg PO Q12 #180 tab 08/13/19 10/17/19 Rx diltiazem HCl [DILT-XR] 120 mg PO QAM 09/02/19 10/17/19 History cyanocobalamin (vitamin B-12) 500 mcg PO QAM 09/29/19 10/17/19 History hydroxyzine HCl 25 mg PO Q6H PRN 10/02/19 10/17/19 History Past Med/Surg History Medical History Atrial fibrillation (Inactive) Cervical cancer 2006 s/p chemo + radiation, yearly Paps HTN (hypertension) (Chronic) Surgical History No pertinent past surgical history Family History Father , 80yo No problems noted. Mother , 83yo Dementia Other No pertinent family history in first degree relatives Social History Preferred Language: Senegalese Communication Ability: Effective Visual Impairment: No Limitations Hearing Ability: Normal Fern Picker Required: No Beliefs That Will Affect Care: None marital status: Current Living Situation: Spouse Other Information That Helps Us Care for You: No Feels Safe at Home: Yes Safety Concerns: Feels Safe At This Time Smoking Status: Never smoker Do You Dip or Chew Tobacco: No ; Second Hand Exposure: No ; Tobacco Cessation Education Requested by Patient: No Hx Alcohol Use: No Hx Substance Use: No Review of Systems Review of Systems: All systems reviewed & are unremarkable except as noted in HPI & below Results & Data Vital Signs (Past 12 Hours) Vital Signs Temp Pulse Pulse Resp BP BP Pulse Ox 10/17/19 10:42 66 22 122/75 100 10/17/19 09:40 60 18 106/62 96 10/17/19 08:33 36.6 C 70 20 120/80 100 Code Status & VTE Plan VTE Prophylaxis Plan VTE Prophylaxis will be ordered: Yes PG Care Time/CCT Total # of Minutes Spent Total Time Spent with Patient: Total time spent is greater than 50% in coordination of care (as documented) at patient's floor/unit and/or counseling patient: Coding Diagnoses Nausea and vomiting R11.2 Gastritis K29.00 Chronicity: acute Gastritis bleeding: without bleeding Gastritis type: unspecified gastritis Acute hypokalemia E87.6 Hypomagnesemia E83.42 A-fib I48.0 Atrial fibrillation type: paroxysmal HTN (hypertension) I10 Anxiety F41.9 Diarrhea R19.7 Hypomagnesemia E83.42 Hypokalemia E87.6 DVT prophylaxis Z29.9 Acute kidney failure N17.9 (1) A-fib Atrial fibrillation type: paroxysmal Qualified Code(s): I48.0 - Paroxysmal atrial fibrillation (2) Gastritis Chronicity: acute Gastritis bleeding: without bleeding Gastritis type: unspecified gastritis Qualified Code(s): K29.00 - Acute gastritis without bleeding
[2019-10-17 11:31] LABS: Appearance Urine Clear (Clear); Bacteria Urine Automated 4+ (Negative); Bilirubin Urine Negative (Negative); Blood Urine Negative (Negative); Color Urine Yellow; Glucose Urine UA Negative (Negative); Ketones Urine Negative (Negative); Leukocyte Esterase Urine 1+ (Negative); Nitrite Urine Negative (Negative); Protein Urine Negative (Negative); RBC Urine Automated 0-4 /hpf (0-4); Specific Gravity Urine 1.008 (1.000-1.030); Urobilinogen Urine Negative (Negative); WBC Urine Automated >30 /hpf (0-5); pH Urine 5.5 (4.5-7.5)
[2019-10-17] MEDS ORDERED: FAMOTIDINE 20 MG in SYRINGE 3 ML IV ONE (12:00)
[2019-10-17] MEDS ORDERED: ONDANSETRON INJ 2 MG/ML 2 ML VIAL IV PRN (12:40)
[2019-10-17] MEDS ORDERED: ACETAMINOPHEN 325 MG TAB PO PRN (12:46)
--- NOTE | 2019-10-17 14:55 | Electrocardiogram Report ---
Test Reason : Blood Pressure : / mmHG Vent. Rate : 070 BPM Atrial Rate : 070 BPM P-R Int : 278 ms QRS Dur : 102 ms QT Int : 474 ms P-R-T Axes : 045 076 017 degrees QTc Int : 511 ms Poor data quality, interpretation may be adversely affected Sinus rhythm with 1st degree A-V block Low voltage QRS Cannot rule out Anterior infarct (cited on or before 02-SEP-2019) T wave abnormality, consider inferior ischemia Abnormal ECG When compared with ECG of 02-SEP-2019 13:49, Premature ventricular complexes are no longer Present Confirmed by Arthur Gore ([id number]) on 10/17/2019 2:55:25 PM Referred By: REFERRED SELF Confirmed By:Arthur Gore
--- NOTE | 2019-10-17 16:11 | Gastrointestinal Consultation ---
Date of Consultation October 17, 2019 Assessment & Plan (1) Diarrhea: improving, will monitor for now, likely from previous enteritis. (2) Acid reflux disease with ulcer: (3) Nausea and vomiting: with acid reflux. Recs: 1. replete lytes prn 2. NPO post midnight 3. EGD to further evaluate tomorrow 10/18 4. continue pepcid for now 5. if diarrhea recurs will consider further diagnostic workup Thank you for allowing me to participate in the care of this patient. History of Present Illness Attending Physician: Ronald Bains MD 64 yo female here for evaluation. She notes she has been having persisent nausea/vomiting and acid reflux for the last month, with LUQ pains after eating certain foods as well. She was placed on protonix as an outpatient but had to stop this as she says it was causing her diarrhea. She was in the ER for this pain last month, CT showed findings c/w enteritis. She notes her diarrhea has improved, having solid stools today. Denies hematochezia, melena, hematemesis, weight loss. No visual symptoms ,new joint pains, urinary symptoms. Labs reviewed, notable for RADHA and significant hypokalemia. No prior EGD. last colonoscopy 2 years ago in [place] and told to repeat in 10 years for screening. Allergies Allergy/AdvReac Type Severity Reaction Status Date / Time No Known Allergies Allergy Unverified 10/17/19 09:30 Home Medications Home Medications Medication Instructions Recorded Confirmed Type acetaminophen [Tylenol Arthritis 650 mg PO BID PRN 11/16/18 10/17/19 History Pain] losartan 50 mg tablet 50 mg PO BID #180 tab 05/21/19 10/17/19 Rx apixaban 5 mg tablet 5 mg PO BID #60 tab 07/20/19 10/17/19 Rx flecainide 100 mg tablet 100 mg PO Q12 #180 tab 08/13/19 10/17/19 Rx diltiazem HCl [DILT-XR] 120 mg PO QAM 09/02/19 10/17/19 History cyanocobalamin (vitamin B-12) 500 mcg PO QAM 09/29/19 10/17/19 History hydroxyzine HCl 25 mg PO Q6H PRN 10/02/19 10/17/19 History Patient History Medical History Atrial fibrillation (Inactive) Cervical cancer 2006 s/p chemo + radiation, yearly Paps HTN (hypertension) (Chronic) Surgical History No pertinent past surgical history Family History Father , 80yo No problems noted. Mother , 83yo Dementia Other No pertinent family history in first degree relatives Social History Preferred Language: Paraguayan Communication Ability: Effective Visual Impairment: No Limitations Hearing Ability: Normal Designated Broker Required: No Beliefs That Will Affect Care: None marital status: Current Living Situation: Spouse Other Information That Helps Us Care for You: No Feels Safe at Home: Yes Safety Concerns: Feels Safe At This Time Smoking Status: Never smoker Do You Dip or Chew Tobacco: No ; Second Hand Exposure: No ; Tobacco Cessation Education Requested by Patient: No Hx Alcohol Use: No Hx Substance Use: No Review of Systems Constitutional: no fever, no chills and no weight loss Eyes: as per Subjective / HPI Ear, Nose, Mouth, Throat: as per Subjective / HPI Respiratory: no dyspnea and no dyspnea on exertion Cardiovascular: no chest pain and no palpitations Gastrointestinal: as per Subjective / HPI Musculoskeletal: no joint pain and no swelling Integumentary: no rash and no lesions Neurologic: no numbness and no paresthesia Psychiatric: no depression and no anxiety Endocrine: no fatigue Hematologic / Lymphatic: no easy bleeding and no easy bruising Physical Exam Constitutional: WD/WN, vitals as above Eyes: EOM intact bilaterally Neck: normal visual inspection Respiratory: normal respiratory effort, lungs clear to auscultation Cardiovascular: RRR, no murmur, no edema Gastrointestinal (Abdomen): Inspection/Auscultation: abdomen normal to inspection; abdomen not distended Percussion/Palpation: abdomen soft; abdomen nontender and no hepatosplenomegaly Musculoskeletal: Extremities: no cyanosis Gait: normal gait Skin: no rashes, warm and dry Neurologic: moves all extremities Psychiatric: A+Ox3, euthymic affect Results & Data Vital Signs (Past 12 Hours) Vital Signs Temp Pulse Pulse Resp BP BP Pulse Ox 10/17/19 14:54 36.6 C 66 18 123/71 98 10/17/19 12:59 36.4 C L 67 18 130/83 100 10/17/19 12:00 78 16 124/65 98 10/17/19 10:42 66 22 122/75 100 10/17/19 09:40 60 18 106/62 96 10/17/19 08:33 36.6 C 70 20 120/80 100 PG Care Time/CCT Total # of Minutes Spent Total Time Spent with Patient: Total time spent is greater than 50% in coordination of care (as documented) at patient's floor/unit and/or counseling patient: Coding Level of Care Code 52646 Initial Inpt Care Lvl 3 Diagnoses Diarrhea R19.7 Acid reflux disease with ulcer K21.9 Nausea and vomiting R11.2
[2019-10-17 20:29] LABS: BUN Creatinine Ratio 14.3 (10-20); Calcium 8.7 mg/dl (8.5-10.1); Creatinine Clr Calc Pharmacy 33.5 ml/min; Est GFR (African American) 46.4; Potassium 2.9 mmol/L (3.5-5.1)
[2019-10-17] MEDS: APIXABAN 5 MG TABLET PO SCH (20:35)
[2019-10-17] MEDS: FLECAINIDE ACETATE 100 MG TABLET PO SCH (20:35)
[2019-10-17] MEDS: MAGNESIUM CHLORIDE 64MG DELAYED REL TAB PO SCH (20:35)
[2019-10-17] MEDS ORDERED: LOSARTAN POTASSIUM 50 MG TAB PO SCH (21:00)
[2019-10-17] MEDS: LORazepam 0.5 MG TAB PO PRN (21:25)
[2019-10-17] MEDS: POTASSIUM CHLORIDE 20 MEQ TABCR PO SCH (21:39)
[2019-10-17] MEDS: D5W AND 1/2NSS + 20MEQ KCL 20 MEQ/1,000 ML BAG IV SCH (21:39)
--- NOTE | 2019-10-18 01:59 | Emergency Department Note ---
Entered by Olivia Bear acting as a scribe for Connor Zhu MD History of Present Illness General Chief complaint: Dehydration Stated complaint: DR CALLED WITH ORDER TO GET FLUIDS Time Seen by Provider: 10/17/19 08:44 Source: patient History of Present Illness Onset (ago): week(s) 1 Location: head (dehydration) Severity: similar to prior episodes Pain Consistency: + other (persistent) Quality: + other (dehydration) Associated symptoms: + nausea/vomiting, + weakness and + other (diarrhea); no fever/chills Treatments prior to arrival: none The patient is a 64 year old female presenting to the Emergency Department complaining of persistent dehydration starting 1 week ago. The patient reports that she is dehydrated. She states that she normally experiences about 3 episodes of diarrhea every night. She explains that she vomited once 4 days ago but hasnt vomited since. She notes that she feels generally weak. She adds that she went to her PCP yesterday and had blood work done that revealed the patients potassium and magnesium were low and that she needed to come to the Emergency Department to be rehydrated. The patient reports that she has experienced these symptoms before about 2 weeks ago when she came into the ED and was diagnosed with gastritis however the symptoms she is currently experiencing are not as bad as they were when she was in the hospital 2 weeks ago. 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 The patient denies recent fevers or chills. Home Medications Home Medications Medication Instructions Recorded Confirmed Type acetaminophen [Tylenol Arthritis 650 mg PO BID PRN 11/16/18 10/17/19 History Pain] losartan 50 mg tablet 50 mg PO BID #180 tab 05/21/19 10/17/19 Rx apixaban 5 mg tablet 5 mg PO BID #60 tab 07/20/19 10/17/19 Rx flecainide 100 mg tablet 100 mg PO Q12 #180 tab 08/13/19 10/17/19 Rx diltiazem HCl [DILT-XR] 120 mg PO QAM 09/02/19 10/17/19 History cyanocobalamin (vitamin B-12) 500 mcg PO QAM 09/29/19 10/17/19 History hydroxyzine HCl 25 mg PO Q6H PRN 10/02/19 10/17/19 History Allergies Allergy/AdvReac Type Severity Reaction Status Date / Time No Known Allergies Allergy Unverified 10/17/19 09:30 Past Med/Surg History Medical History Atrial fibrillation (Inactive) Cervical cancer 2005 s/p chemo + radiation, yearly Paps HTN (hypertension) (Chronic) Surgical History No pertinent past surgical history Family History Father , 80yo No problems noted. Mother , 83yo Dementia Other No pertinent family history in first degree relatives Social History Preferred Language: Amharic Communication Ability: Effective Visual Impairment: No Limitations Hearing Ability: Normal Personal Attendant Required: No Beliefs That Will Affect Care: None marital status: Current Living Situation: Spouse Other Information That Helps Us Care for You: No Feels Safe at Home: Yes Safety Concerns: Feels Safe At This Time Smoking Status: Never smoker Do You Dip or Chew Tobacco: No ; Second Hand Exposure: No ; Tobacco Cessation Education Requested by Patient: No Hx Alcohol Use: No Hx Substance Use: No Review of Systems See HPI for pertinent positives & negatives. and A total of 10 systems reviewed and were otherwise negative Physical Exam Vital Signs Vital Signs - 24 hr 10/17/19 08:33 10/17/19 09:40 10/17/19 10:42 Temperature 36.6 C Temperature Source Oral Pulse Rate 70 Pulse Rate [Finger] 60 66 Respiratory Rate 20 18 22 Blood Pressure 120/80 Blood Pressure [Left Arm] 106/62 122/75 Blood Pressure Mean 93 Blood Pressure Mean [Left Arm] 76 90 Pulse Oximetry 100 96 100 Oxygen Delivery Method Room Air Room Air Room Air Sepsis Recent Fever Within 48 Hours No Sepsis New/Unexplained Change in Mental Status No Sepsis Action Taken by Nursing No Action Required GENERAL: Patient is fatigued appearing. Awake, alert, in no distress HENT: Normocephalic, atraumatic. Oropharynx with dry mucous membranes and otherwise unremarkable. EYES: Normal conjunctiva. Sclera non-icteric. NECK: Supple. No nuchal rigidity. FROM. No JVD. RESPIRATORY: CTAB. CARDIAC: Regular rate, normal rhythm. Extremities warm and well perfused. Pulses equal. ABDOMEN: Soft, non-distended. No tenderness to palpation. No rebound or guarding. No masses. RECTAL: Deferred. MUSCULOSKELETAL: Chest examination reveals no tenderness. The back is symmetrical on inspection without obvious abnormality. There is no CVA tenderness to palpation. No joint edema. LOWER EXTREMITIES: Calves are equal size bilaterally and non-tender. No edema. No discoloration. NEURO: Normal sensorium. No sensory or motor deficits noted. SKIN: No rash or jaundice noted. Course Course 918: The patient was evaluated in room A12B, and a complete history and physical examination were performed. 1030: I reevaluated the patient at this time. 1117: I discussed the patients case with Dr. Nara GAR hospitalist. He will evaluate the patient for further management. Administered Medications Apixaban (Eliquis) 5 mg PO BID ANETA Stop: 11/16/19 20:59 Last Admin: 10/17/19 20:35 Dose: 5 mg Documented by: [id number] Flecainide Acetate (Tambocor) 50 mg PO BID ANETA Stop: 11/16/19 20:59 Last Admin: 10/17/19 20:35 Dose: 50 mg Documented by: [id number] Potassium Chloride/Dextrose/Sod Cl (D5w And 1/2nss + 20meq Kcl) 20 meq in 1,000 mls @ 150 mls/hr IV .Q6H40M ANETA Stop: 11/16/19 21:14 Last Admin: 10/17/19 21:39 Dose: 150 mls/hr Documented by: [id number] Lorazepam (Ativan) 0.5 mg PO Q4H PRN PRN Reason: Anxiety Stop: 11/16/19 20:41 Last Admin: 10/17/19 21:25 Dose: 0.5 mg Documented by: [id number] Magnesium Chloride (Slow-Mag) 256 mg PO BID ANETA Stop: 11/16/19 20:59 Last Admin: 10/17/19 20:35 Dose: 256 mg Documented by: [id number] Potassium Chloride (Klor-Con M20) 40 meq PO BID ANETA Stop: 11/16/19 20:59 Last Admin: 10/17/19 21:39 Dose: 40 meq Documented by: [id number] Discontinued Medications Sodium Chloride (Nss 1000ml) 1,000 mls @ 999 mls/hr IV .Q1H1M ONE Stop: 10/17/19 10:20 Last Infusion: 10/17/19 10:46 Dose: 0 mls/hr Documented by: [id number] Admin: 10/17/19 09:44 Dose: 999 mls/hr Documented by: [id number] Potassium Chloride (K [place] / Wtr) 10 meq in 100 mls @ 100 mls/hr IV Q1H ANETA Stop: 10/17/19 11:59 Last Infusion: 10/17/19 12:02 Dose: 0 mls/hr Documented by: [id number] Admin: 10/17/19 11:02 Dose: 100 mls/hr Documented by: [id number] Infusion: 10/17/19 11:01 Dose: 0 mls/hr Documented by: [id number] Admin: 10/17/19 10:02 Dose: 100 mls/hr Documented by: [id number] Magnesium Sulfate/Dextrose (Magnesium Sulfate / D5w) 1 gm in 100 mls @ 100 mls /hr IV Q1H ANETA Stop: 10/17/19 11:59 Last Infusion: 10/17/19 12:02 Dose: 0 mls/hr Documented by: [id number] Admin: 10/17/19 11:02 Dose: 100 mls/hr Documented by: [id number] Infusion: 10/17/19 11:01 Dose: 0 mls/hr Documented by: [id number] Admin: 10/17/19 10:02 Dose: 100 mls/hr Documented by: [id number] Lactated Ringer's (Lr) 1,000 mls @ 999 mls/hr IV .Q1H1M ONE Stop: 10/17/19 12:29 Last Infusion: 10/17/19 14:00 Dose: 0 mls/hr Documented by: [id number] Admin: 10/17/19 12:42 Dose: 999 mls/hr Documented by: [id number] Famotidine 20 mg/ Syringe 5 mls @ 2.5 mls/min IV ONE ONE Stop: 10/17/19 12:01 Last Admin: 10/17/19 14:01 Dose: 2.5 mls/min Documented by: [id number] Magnesium Sulfate/Dextrose (Magnesium Sulfate / D5w) 1 gm in 100 mls @ 100 mls/hr IV Q1H ANETA Stop: 10/17/19 14:59 Last Infusion: 10/17/19 16:15 Dose: 0 mls/hr Documented by: [id number] Admin: 10/17/19 15:01 Dose: 100 mls/hr Documented by: [id number] Infusion: 10/17/19 14:56 Dose: 100 mls/hr Documented by: [id number] Admin: 10/17/19 13:56 Dose: 100 mls/hr Documented by: [id number] Lactated Ringer's (Lr) 1,000 mls @ 999 mls/hr IV .Q1H1M ONE Stop: 10/17/19 18:49 Last Infusion: 10/17/19 19:15 Dose: 0 mls/hr Documented by: [id number] Admin: 10/17/19 18:07 Dose: 999 mls/hr Documented by: [id number] Potassium Chloride (Klor-Con M20) 40 meq PO NOW STA Stop: 10/17/19 09:52 Last Admin: 10/17/19 10:01 Dose: 40 meq Documented by: [id number] Medical Decision Making Differential Diagnosis Differential Diagnosis includes but is not limited to dehydration, stroke, anemia, hypoglycemia, hyponatremia, hypernatremia, urinary tract infection, pneumonia, bronchitis, sepsis, gastroenteritis, additional abdominal pathology, metabolic abnormalities and infections. Medical Records Attestation: I reviewed the patient's medical records. Home Medications Current Medication List: was personally reviewed by me Laboratory Data Attestation: I reviewed the patient's lab results. Result diagrams: 10/17/19 09:18 10/17/19 19:52 Lab Results 10/17/19 10/17/19 10/17/19 Range/Units 09:18 09:18 09:18 WBC 9.43 (4.8-10.8) K/uL RBC 4.70 (4.2-5.4) M/uL Hgb 14.7 (12.0-16.0) g/dL Hct 41.1 (37-47) % MCV 87.4 (80-100) fL MCH 31.3 (25-34) pg MCHC 35.8 (32-36) g/dL RDW Std Deviation 40.5 (36.4-46.3) fL RDW Coeff of Anmol 12.5 (11.5-14.5) % Plt Count 300 (130-400) K/uL MPV 9.3 (7.4-10.4) fL Immature Gran % (Auto) 0.2 % Neut % (Auto) 77.5 % Lymph % (Auto) 15.6 % Edgar % (Auto) 4.9 % Eos % (Auto) 1.5 % Baso % (Auto) 0.3 % Immature Gran # (Auto) 0.02 (0.00-0.02) K/uL Neut # (Auto) 7.31 H (1.4-6.5) K/uL Lymph # (Auto) 1.47 (1.2-3.4) K/uL Edgar # (Auto) 0.46 (0.11-0.59) K/uL Eos # (Auto) 0.14 (0-0.5) K/uL Baso # (Auto) 0.03 (0-0.2) K/uL ESR 23 H (0-21) mm/hr Sodium 138 (136-145) mmol/L Potassium 2.4 L* (3.5-5.1) mmol/L Chloride 106 (98-107) mmol/L Carbon Dioxide 25 (21-32) mmol/L Anion Gap 7.0 (3-11) BUN 28 H (7-18) mg/dl Creatinine 1.74 H (0.6-1.2) mg/dl Est Cr Clr Drug Dosing Not Reportable Est GFR ( Amer) 35.0 Est GFR (Non-Af Amer) 30.2 BUN/Creatinine Ratio 16.1 (10-20) Glucose 85 (70-99) mg/dl Calcium 9.4 (8.5-10.1) mg/dl Phosphorus 2.6 (2.5-4.9) mg/dl Magnesium 1.4 L (1.8-2.4) mg/dl Total Bilirubin 0.7 (0.2-1) mg/dl AST 11 L (15-37) U/L ALT 39 (12-78) U/L Alkaline Phosphatase 109 (45-117) U/L C-Reactive Protein (0-0.29) mg/dl Total Protein 8.1 (6.4-8.2) gm/dl Albumin 4.4 (3.4-5.0) gm/dl Globulin 3.7 (2.5-4.0) gm/dl Albumin/Globulin Ratio 1.2 (0.9-2) Lipase 190 (73-393) U/L Procalcitonin (0-0.5) ng/ml Urine Color Urine Appearance (Clear) Urine pH (4.5-7.5) Ur Specific [place] (1.000-1.030) Urine Protein (Negative) Urine Glucose (UA) (Negative) Urine Ketones (Negative) Urine Blood (Negative) Urine Nitrite (Negative) Urine Bilirubin (Negative) Urine Urobilinogen (Negative) Ur Leukocyte Esterase (Negative) Urine WBC (Auto) (0-5) /hpf Urine RBC (Auto) (0-4) /hpf U Hyaline Cast (Auto) (0-5) /lpf U Epithel Cells (Auto) (0-5) /lpf Urine Bacteria (Auto) (Negative) 10/17/19 10/17/19 10/17/19 Range/Units 09:18 09:18 11:02 WBC (4.8-10.8) K/uL RBC (4.2-5.4) M/uL Hgb (12.0-16.0) g/dL Hct (37-47) % MCV (80-100) fL MCH (25-34) pg MCHC (32-36) g/dL RDW Std Deviation (36.4-46.3) fL RDW Coeff of Anmol (11.5-14.5) % Plt Count (130-400) K/uL MPV (7.4-10.4) fL Immature Gran % (Auto) % Neut % (Auto) % Lymph % (Auto) % Edgar % (Auto) % Eos % (Auto) % Baso % (Auto) % Immature Gran # (Auto) (0.00-0.02) K/uL Neut # (Auto) (1.4-6.5) K/uL Lymph # (Auto) (1.2-3.4) K/uL Edgar # (Auto) (0.11-0.59) K/uL Eos # (Auto) (0-0.5) K/uL Baso # (Auto) (0-0.2) K/uL ESR (0-21) mm/hr Sodium (136-145) mmol/L Potassium (3.5-5.1) mmol/L Chloride (98-107) mmol/L Carbon Dioxide (21-32) mmol/L Anion Gap (3-11) BUN (7-18) mg/dl Creatinine (0.6-1.2) mg/dl Est Cr Clr Drug Dosing Est GFR ( Amer) Est GFR (Non-Af Amer) BUN/Creatinine Ratio (10-20) Glucose (70-99) mg/dl Calcium (8.5-10.1) mg/dl Phosphorus (2.5-4.9) mg/dl Magnesium (1.8-2.4) mg/dl Total Bilirubin (0.2-1) mg/dl AST (15-37) U/L ALT (12-78) U/L Alkaline Phosphatase (45-117) U/L C-Reactive Protein < 0.29 (0-0.29) mg/dl Total Protein (6.4-8.2) gm/dl Albumin (3.4-5.0) gm/dl Globulin (2.5-4.0) gm/dl Albumin/Globulin Ratio (0.9-2) Lipase (73-393) U/L Procalcitonin 0.06 (0-0.5) ng/ml Urine Color Yellow Urine Appearance Clear (Clear) Urine pH 5.5 (4.5-7.5) Ur Specific [place] 1.008 (1.000-1.030) Urine Protein Negative (Negative) Urine Glucose (UA) Negative (Negative) Urine Ketones Negative (Negative) Urine Blood Negative (Negative) Urine Nitrite Negative (Negative) Urine Bilirubin Negative (Negative) Urine Urobilinogen Negative (Negative) Ur Leukocyte Esterase 1+ H (Negative) Urine WBC (Auto) >30 H (0-5) /hpf Urine RBC (Auto) 0-4 (0-4) /hpf U Hyaline Cast (Auto) 1-5 (0-5) /lpf U Epithel Cells (Auto) 10-20 H (0-5) /lpf Urine Bacteria (Auto) 4+ H (Negative) ECG Data Attestation: I personally reviewed and interpreted this ECG as follows: Indication: + weakness Rate (beats per minute): 70 Rhythm: + sinus rhythm ECG Intervals/blocks: + First degree AV block, + Normal QRS (QRS 102.) and + Normal QT-c (QT-c 511.) ECG ST segments: no ST depression and no ST elevation Blood Pressure Blood Pressure Findings: Elevated blood pressure Blood Pressure Disposition: further management by hospitalist MDM Narrative The patient is a pleasant 64 y/o woman with a pmhx of afib on Eliquis, HTN who presents to the emergency department for evaluation and treatment for dehydrat ion after referred by pcp following worsneing outpatient labs yesterday in the setting of generalized weakness that results from recovering from gastroenteritis over the past month per HPI. On arrival the patient is fatigued appearing but in NAD, AFVSS. Patient appears clinically dry. Abdomen is benign. EKG unremarkable without evidence of acute ischemia. WBC, H/H, platelets wnl. Chemistry without acidosis. Potassium 2.4 and Magnesium 1.4 with repletion provided. Cr. 1.7 additionally worse from prior. Otherwise, LFTs and electrolytes unremarkable. Given patients worsening renal function and e lectrolytes despite her report of improved nausea and diarrhea, reasonable to admit for further hydration and repletion. Patient agreeable with this. Case was discussed with Dr. Bains, [facility] hospitalist, who will evaluate the patient for admission. Impression & Plan Hypokalemia, Hypomagnesemia, Acute renal insufficiency, Weakness Discharge Plan Visit Data *Final* Discharge Date/Time: 10/17/19 12:07 Chief Complaint: Dehydration Stated Complaint: DR CALLED WITH ORDER TO GET FLUIDS ED Provider: Connor Zhu Discharge Problem: Hypokalemia, Hypomagnesemia, Acute renal insufficiency, Weakness Patient Disposition: Admitted As Inpatient Discharge Instructions Interventions: ED Discharge Assessment Last Done: 10/17/19 12:07 The scribe's documentation has been prepared under my direction and personally reviewed by me in its entirety. I confirm that the note above accurately reflects all work, treatment, procedures, and medical decision making performed by me.
[2019-10-18] MEDS: D5W AND 1/2NSS + 20MEQ KCL 20 MEQ/1,000 ML BAG IV SCH (04:21)
[2019-10-18] MEDS: dilTIAZem HCL 120 MG CAPCR PO SCH (08:26)
[2019-10-18] MEDS: FLECAINIDE ACETATE 100 MG TABLET PO SCH ×2 (08:26→21:18)
[2019-10-18] MEDS: FAMOTIDINE 20 MG in SYRINGE 3 ML IV SCH (08:27)
[2019-10-18 08:29] LABS: Hematocrit (blood only) 34.3 % (37-47); Hemoglobin 11.7 g/dL (12.0-16.0); Mean Corpuscular Hgb Conc 34.1 g/dL (32-36); Mean Corpuscular Volume 90.7 fL (80-100); Mean Platelet Volume 9.4 fL (7.4-10.4); Platelet Count 238 K/uL (130-400); RDW Standard Deviation 42.6 fL (36.4-46.3); Red Blood Count 3.78 M/uL (4.2-5.4); White Blood Count 4.79 K/uL (4.8-10.8)
[2019-10-18 08:30] LABS: BUN Creatinine Ratio 10.9 (10-20); Creatinine Clr Calc Pharmacy 37.2 ml/min; Est GFR (African American) 52.8; Est GFR (Non-African American) 45.5; Magnesium 2.1 mg/dl (1.8-2.4); Potassium 3.6 mmol/L (3.5-5.1)
[2019-10-18] MEDS: POTASSIUM CHLORIDE 20 MEQ TABCR PO SCH (08:39)
[2019-10-18] MEDS: MAGNESIUM CHLORIDE 64MG DELAYED REL TAB PO SCH (08:39)
[2019-10-18] MEDS ORDERED: POTASSIUM CHLORIDE 20 MEQ TABCR PO SCH (09:00)
[2019-10-18] MEDS: LORazepam 0.5 MG TAB PO PRN (09:06)
--- NOTE | 2019-10-18 09:57 | History & Physical Bridge Note ---
Date of Service October 18, 2019 History & Physical Bridge Note I have examined the patient, reviewed the History & Physical and in the interval since the performance of the History & Physical I have noted the following changes of clinical significance: no changes noted Proceed with EGD. risks/benefits and procedure discussed with patient, who agrees to proceed
[2019-10-18] MEDS: POTASSIUM CHLORIDE 20 MEQ in DEXTROSE 5% 1,000 ML IV SCH ×2 (10:11→20:59)
[2019-10-18] MEDS ORDERED: ePHEDrine sulfate 50 MG/ML AMP IV PRN (11:09)
[2019-10-18] MEDS ORDERED: ATROPINE SULFATE 0.1 MG/ML 10ML SYR IV PRN (11:09)
--- NOTE | 2019-10-18 11:09 | Anesthesiology Consultation ---
Date of Service October 18, 2019 Assessment & Plan Chart Review Chart Review: Acceptable Risk for Surgery and Patient NOT seen in Pre Admission Testing Consults Requested none ASA ASA4 Proposed Anesthesia Anesthesia Type: MAC Risk / Benefits Reviewed With: PT / POA / Parent / Guardian, Accepts Plan and Informed Consent Obtained History Surgery Operation Date: 10/18/19 16:15 Proposed Procedures p Esophagogastroduodenoscopy Dr. Mayda Ohara MD Height/Weight Height: 5 ft Weight: 62.1 kg Allergies Allergy/AdvReac Type Severity Reaction Status Date / Time No Known Allergies Allergy Unverified 10/17/19 09:30 Medications Home Medications Medication Instructions Recorded Confirmed Last Taken acetaminophen [Tylenol Arthritis 650 mg PO BID PRN 11/16/18 10/17/19 10/01/19 Pain] 650 mg losartan 50 mg tablet 50 mg PO BID #180 tab 05/21/19 10/17/19 10/17/19 apixaban 5 mg tablet 5 mg PO BID #60 tab 07/20/19 10/17/19 10/17/19 flecainide 100 mg tablet 100 mg PO Q12 #180 tab 08/13/19 10/17/19 10/17/19 diltiazem HCl [DILT-XR] 120 mg PO QAM 09/02/19 10/17/19 10/17/19 cyanocobalamin (vitamin B-12) 500 mcg PO QAM 09/29/19 10/17/19 10/17/19 hydroxyzine HCl 25 mg PO Q6H PRN 10/02/19 10/17/19 10/01/19 Active Medications Generic Name Dose Route Start Last Admin Trade Name Silvio PRN Reason Stop Dose Admin Apixaban 5 mg 10/17/19 21:00 10/17/19 20:35 Eliquis PO 11/16/19 20:59 5 mg BID ANETA Administration Diltiazem HCl 120 mg 10/18/19 09:00 10/18/19 08:26 Cardizem Cd PO 11/17/19 08:59 120 mg QAM ANETA Administration Flecainide Acetate 50 mg 10/17/19 21:00 10/18/19 08:26 Tambocor PO 11/16/19 20:59 50 mg BID ANETA Administration Famotidine 20 mg/ Syringe 5 mls @ 2.5 mls/min 10/18/19 09:00 10/18/19 08:27 IV 11/17/19 08:59 2.5 mls/min QAM ANETA Administration Potassium Chloride 20 meq/ 1,010 mls @ 125 mls/hr 10/18/19 09:45 10/18/19 10:11 Dextrose IV 11/17/19 09:44 125 mls/hr .Q8H5M ANETA Administration Lorazepam 0.5 mg 10/17/19 20:42 10/18/19 09:06 Ativan PO 11/16/19 20:41 0.5 mg Q4H PRN Administration Anxiety Magnesium Chloride 256 mg 10/17/19 21:00 10/18/19 08:39 Slow-Mag PO 11/16/19 20:59 Not Given BID ANETA NPO Date Last Intake of Fluids: 10/18/19 Time Last Intake of Fluids: 00:00 Date Last Intake of Solids: 10/17/19 Time Last Intake of Solids: 18:00 Past Medical History Medical History Atrial fibrillation (Inactive) Cervical cancer 2005 s/p chemo + radiation, yearly Paps HTN (hypertension) (Chronic) Exercise / Class Metabolic Activity III < 4 Walking/Shop/Light housework Past Family History Family History Father , 80yo No problems noted. Mother , 83yo Dementia Other No pertinent family history in first degree relatives Past Surgical History Surgical History No pertinent past surgical history Past Anesthesia History No Hx of Anesthesia Complications and No Family Hx of Anesthesia Complications History of PONV No Hx of PONV and No Hx of Motion Sickness Social History Smoking Status: Never smoker Do You Dip or Chew Tobacco: No Hx Alcohol Use: No Hx Substance Use: No substance use type: does not use Physical Exam Vital Signs Last Vital Signs Temp 36.9 C 10/18/19 10:57 Pulse 81 10/18/19 10:57 Resp 20 10/18/19 10:57 BP 166/86 H 10/18/19 10:57 Pulse Ox 95 10/18/19 10:57 Constitutional not obese ENMT Mouth: no dentition abnormality Thyromental Distance: < 3.5 Finger Breadths Mallampati Class: II Neck normal visual inspection and trachea midline; neck extension not limited Respiratory normal respiratory effort Auscultation: lungs clear to auscultation bilaterally Cardiovascular Rate/Rhythm: regular rate and regular rhythm Heart Sounds: no murmur Vessels: no carotid bruit Musculoskeletal Spine: normal cervical ROM Extremities: extremities normal to inspection Neurologic moves all extremities Motor/Sensory: no sensory deficit Psychiatric Orientation: alert and oriented x 3 Testing Laboratory Results 10/18/19 08:00 10/18/19 08:00 Urine Color Yellow 10/17/19 11:02 Urine Appearance Clear (Clear) 10/17/19 11:02 Urine pH 5.5 (4.5-7.5) 10/17/19 11:02 Ur Specific [place] 1.008 (1.000-1.030) 10/17/19 11:02 Urine Protein Negative (Negative) 10/17/19 11:02 Urine Glucose (UA) Negative (Negative) 10/17/19 11:02 Urine Ketones Negative (Negative) 10/17/19 11:02 Urine Nitrite Negative (Negative) 10/17/19 11:02 Ur Leukocyte Esterase 1+ (Negative) H 10/17/19 11:02 Urine WBC (Auto) >30 /hpf (0-5) H 10/17/19 11:02 Urine RBC (Auto) 0-4 /hpf (0-4) 10/17/19 11:02 U Hyaline Cast (Auto) 1-5 /lpf (0-5) 10/17/19 11:02 U Epithel Cells (Auto) 10-20 /lpf (0-5) H 10/17/19 11:02 Urine Bacteria (Auto) 4+ (Negative) H 10/17/19 11:02 10/17/19 11:02 Urine Culture - Preliminary Urine,Clean Catch Gram negative bacilli 10/18/19 06:00 POC Glucose 120 H
[2019-10-18] MEDS ORDERED: PROPOFOL IV EMULSION 10 MG/ML 20 ML VIAL IV ONE (12:05)
[2019-10-18] MEDS ORDERED: LIDOCAINE HCL 2% 2 ML VIAL/AMP(20MG/ML) INFIL ONE (12:05)
--- NOTE | 2019-10-18 12:17 | Anesthesiology Progress Note ---
Date of Service October 18, 2019 Anesthesia Post Procedure Vital Signs Vital Signs: Temp Pulse Resp BP Pulse Ox 10/18/19 11:57 73 18 111/56 L 94 10/18/19 10:57 36.9 C 81 20 166/86 H 95 10/18/19 07:22 36.8 C 67 18 125/72 96 10/17/19 23:25 36.5 C 63 18 115/67 93 10/17/19 14:54 36.6 C 66 18 123/71 98 10/17/19 12:59 36.4 C L 67 18 130/83 100 Transfer of Care Handoff Completed per policy Notes Mental Status: alert / awake / arousable Patient Amnestic to Procedure: Yes Nausea / Vomiting: adequately controlled Pain: adequately controlled Airway Patency, RR, SpO2: stable & adequate BP & HR: stable & adequate Hydration State: stable & adequate Anesthetic Complications: no major complications apparent
--- NOTE | 2019-10-18 12:43 | GI REPORT ---
Patient Name: Flores Crews Procedure Date: 10/18/2019 11:44 AM Date of : 1955 Admit Type: Inpatient Age: 64 Gender: Female Attending MD: Esau Ohara MD Procedure: Upper GI endoscopy Providers: Esau Ohara MD Referring MD: Lazarus Miller Indications: Abdominal pain Medicines: Monitored Anesthesia Care Complications: No immediate complications. Estimated blood loss: None. Estimated Blood Loss: Estimated blood loss: none. Procedure: Pre-Anesthesia Assessment: - Prior Anticoagulants: The patient has taken no previous anticoagulant or antiplatelet agents. - ASA Grade Assessment: III - A patient with severe systemic disease. After obtaining informed consent, the endoscope was passed under direct vision. Throughout the procedure, the patient's blood pressure, pulse, and oxygen saturations were monitored continuously. The Endoscope was introduced through the mouth, and advanced to the second part of duodenum. The upper GI endoscopy was accomplished without difficulty. The patient tolerated the procedure well. Findings: The examined esophagus was normal. Localized moderate inflammation characterized by erythema was found in the gastric antrum. Biopsies were taken with a cold forceps for histology. Estimated blood loss: none. The duodenal bulb and second portion of the duodenum were normal. A medium-sized hiatal hernia was present. Two 3 mm sessile polyps with no stigmata of recent bleeding were found in the gastric body. The polyp was removed with a cold biopsy forceps. Resection and retrieval were complete. Estimated blood loss: none. Impression: - Normal esophagus. - Acute gastritis. Biopsied. - Normal duodenal bulb and second portion of the duodenum. Recommendation: - Resume previous diet today. - Await pathology results. - Return patient to hospital [facility] for ongoing care. Esau Ohara MD 10/18/2019 12:42:54 PM This report has been signed electronically. Note Initiated On: 10/18/2019 11:44 AM Number of Addenda: 0 I attest to the content of the Intraoperative Record and orders documented therein, exceptions below {[id number]}
--- NOTE | 2019-10-18 13:25 | Communication Note ---
Date of Service: October 18, 2019 GI brief note EGD findings: medium to large hiatal hernia, gastritis. biopsied. few gastric polyps removed. recs: --barium swallow to evaluate the hiatal hernia --diet as tolerated --f/u path results --rest as per primary team Esau Ohara MD Gastroenterology
[2019-10-18] MEDS: LACTOBACILLUS ACIDOPHILUS (FLORANEX) TAB PO SCH ×2 (14:21→17:26)
--- NOTE | 2019-10-18 14:25 | Hospitalist Progress Note ---
Date of Service October 18, 2019 Assessment & Plan (1) Nausea and vomiting: - Likely related to acute gastritis. - S/p EGD today, had erythema of gastric antrum, medium sized hiatal hernia and two 3 mm sessile polyps (biopsies pending) - Advance to FLD then ADAT for dinner; IV fluids at 125 cc/hr in setting of dehydration on AM labs. - Start Protonix PO BID - encourage patient to continue to use PPI daily at home for gastritis; continue Famotidine IV daily. (2) Hiatal hernia: - Medium to large, noted on EGD. - Will order barium swallow study for evaluation. (3) Gastritis: - Likely leading to N/V; she d/c'ed Protonix after 3 days due to concern it was causing diarrhea. - Consider addition of Carafate x 7-10 days. (4) A-fib: - Diagnosed 2 yrs ago; continue Diltiazem and Flecainide. - Will resume home Eliquis on 10/19/19. (5) HTN (hypertension): - Continue home Diltiazem as prescribed. (6) Anxiety: - Ativan 0.5 mg q4hr prn. (7) Diarrhea: - Unclear etiology -- may be related to viral gastroenteritis episodes at home as close contacts were also ill. - Does currently c/o mild diarrhea -- C. diff is pending. - Will order Imodium if testing is negative. (8) Acute kidney failure: - Creatinine was 1.7 on admission -- prerenal related to dehydration. - IV fluids at 125 cc/hr. - Monitor renal function daily. (9) Acute hypokalemia: - Severe level 2.4 on admission in setting of vomiting and diarrhea. - K level now improved, was 3.6 on AM labs. - Replace prn -- added KCl 20 mEq to IV fluids. (10) Hypomagnesemia: - Mag level 2.1 -- hold further PO mag replacement, may increase diarrhea. (11) DVT prophylaxis: - SCDs; holding home Eliquis, will resume on 10/19/19. Dispo: Med/surg; discharge likely on 10/19 pending completion of barium swallow study and if tolerating diet. Subjective Pt. reports nausea/vomiting/abd pain improved. Did have 1-2 loose BMs this morning, C. diff is pending but pt. is requesting Imodium. EGD showed evidence of gastritis, was otherwise negative. Start PPI BID; continue Famotidine daily as inpatient. Review of Systems Review of Systems: All systems reviewed & are unremarkable except as noted in HPI & below Constitutional: no fever, no chills, no fatigue, no weakness and no anorexia Respiratory: no cough, no dyspnea and no dyspnea on exertion Cardiovascular: no chest pain, no palpitations and no edema Gastrointestinal: + diarrhea/loose stools; no abdominal pain, no nausea, no vomiting and no constipation Genitourinary: no difficulty urinating Musculoskeletal: no back pain and no joint pain Integumentary: no non-healing lesions Physical Exam Physical Exam: General: Resting comfortably HEENT: NC/AT; PERRLA with EOMI; [place] conjunctiva, MMM. No erythema of posterior pharynx Neck: Supple and nontender Cardiac: RRR Lungs: CTA bilaterally Abdomen: Bowel normoactive X 4; Nontender to palpation Extremities: Warm. No edema present Neuro: No focal weakness Skin: No rash Results & Data ([facility]) Vital Signs (Past 12 Hours) Vital Signs Temp Pulse Resp BP Pulse Ox 10/18/19 13:10 36.6 C 68 16 144/88 H 96 10/18/19 12:27 78 16 122/74 97 10/18/19 12:12 65 18 128/72 93 10/18/19 12:02 65 18 111/66 94 10/18/19 11:57 73 18 111/56 L 94 10/18/19 10:57 36.9 C 81 20 166/86 H 95 10/18/19 07:22 36.8 C 67 18 125/72 96 Laboratory Results 10/18/19 10/18/19 10/18/19 Range/Units 08:00 08:00 06:00 WBC 4.79 L (4.8-10.8) K/uL RBC 3.78 L (4.2-5.4) M/uL Hgb 11.7 L D (12.0-16.0) g/dL Hct 34.3 L (37-47) % MCV 90.7 (80-100) fL MCH 31.0 (25-34) pg MCHC 34.1 (32-36) g/dL RDW Std Deviation 42.6 (36.4-46.3) fL RDW Coeff of Anmol 13.0 (11.5-14.5) % Plt Count 238 (130-400) K/uL MPV 9.4 (7.4-10.4) fL Sodium 146 H (136-145) mmol/L Potassium 3.6 D (3.5-5.1) mmol/L Chloride 119 H (98-107) mmol/L Carbon Dioxide 22 (21-32) mmol/L Anion Gap 5.0 (3-11) BUN 14 (7-18) mg/dl Creatinine 1.24 H (0.6-1.2) mg/dl Est Cr Clr Drug Dosing 37.2 ml/min Est GFR ( Amer) 52.8 Est GFR (Non-Af Amer) 45.5 BUN/Creatinine Ratio 10.9 (10-20) Glucose 115 H (70-99) mg/dl POC Glucose 120 H (70-99) mg/dl Calcium 9.0 (8.5-10.1) mg/dl Magnesium 2.1 (1.8-2.4) mg/dl 10/17/19 Range/Units 19:52 WBC (4.8-10.8) K/uL RBC (4.2-5.4) M/uL Hgb (12.0-16.0) g/dL Hct (37-47) % MCV (80-100) fL MCH (25-34) pg MCHC (32-36) g/dL RDW Std Deviation (36.4-46.3) fL RDW Coeff of Anmol (11.5-14.5) % Plt Count (130-400) K/uL MPV (7.4-10.4) fL Sodium 143 (136-145) mmol/L Potassium 2.9 L D (3.5-5.1) mmol/L Chloride 114 H (98-107) mmol/L Carbon Dioxide 22 (21-32) mmol/L Anion Gap 7.0 (3-11) BUN 20 H (7-18) mg/dl Creatinine 1.38 H D (0.6-1.2) mg/dl Est Cr Clr Drug Dosing 33.5 ml/min Est GFR ( Amer) 46.4 Est GFR (Non-Af Amer) 40.0 BUN/Creatinine Ratio 14.3 (10-20) Glucose 117 H (70-99) mg/dl POC Glucose (70-99) mg/dl Calcium 8.7 (8.5-10.1) mg/dl Magnesium (1.8-2.4) mg/dl PG Care Time/CCT Total # of Minutes Spent Total Time Spent with Patient: Total time spent is greater than 50% in coordination of care (as documented) at patient's floor/unit and/or counseling patient: Coding Level of Care Code 52766 Subseq Hosp Care Lvl 3 Diagnoses Nausea and vomiting R11.2 Hiatal hernia K44.9 Gastritis K29.00 Chronicity: acute Gastritis bleeding: without bleeding Gastritis type: unspecified gastritis A-fib I48.0 Atrial fibrillation type: paroxysmal HTN (hypertension) I10 Anxiety F41.9 Diarrhea R19.7 Acute kidney failure N17.9 Acute hypokalemia E87.6 Hypomagnesemia E83.42 DVT prophylaxis Z29.9 (1) A-fib Atrial fibrillation type: paroxysmal Qualified Code(s): I48.0 - Paroxysmal atrial fibrillation (2) Gastritis Chronicity: acute Gastritis bleeding: without bleeding Gastritis type: unspecified gastritis Qualified Code(s): K29.00 - Acute gastritis without bleeding
[2019-10-18] MEDS: PANTOprazole 40 MG TAB PO SCH (21:02)
[2019-10-19] MEDS: POTASSIUM CHLORIDE 20 MEQ in DEXTROSE 5% 1,000 ML IV SCH (05:05)
[2019-10-19 05:49] LABS: Hematocrit (blood only) 33.2 % (37-47); Hemoglobin 11.4 g/dL (12.0-16.0); Mean Corpuscular Hemoglobin 31.3 pg (25-34); Mean Corpuscular Hgb Conc 34.3 g/dL (32-36); Mean Corpuscular Volume 91.2 fL (80-100); Mean Platelet Volume 9.5 fL (7.4-10.4); Platelet Count 214 K/uL (130-400); RDW Coefficient of Variation 12.9 % (11.5-14.5); RDW Standard Deviation 42.9 fL (36.4-46.3); Red Blood Count 3.64 M/uL (4.2-5.4); White Blood Count 5.04 K/uL (4.8-10.8)
[2019-10-19 06:24] LABS: BUN Creatinine Ratio 5.4 (10-20); Calcium 8.8 mg/dl (8.5-10.1); Creatinine Clr Calc Pharmacy 41.6 ml/min; Est GFR (African American) 60.4; Est GFR (Non-African American) 52.1; Magnesium 1.6 mg/dl (1.8-2.4); Potassium 3.7 mmol/L (3.5-5.1)
--- NOTE | 2019-10-19 08:33 | Fluoroscopy Report ---
FL barium swallow w/air RTN CLINICAL HISTORY: Hiatal hernia COMPARISON STUDY: CT of the abdomen and pelvis October 02, 2019. Fluoroscopy time: 1.8 minutes. Fluoroscopic images: 22. FINDINGS: Moderate esophageal dysmotility was noted. There is a probable small hiatal hernia. No esop hageal mass or stricture was identified. Transit hold up of a 13 mm barium tablet at the GE junction was noted. No reflux was elicited. IMPRESSION: 1. Probable small hiatal hernia. 2. Moderate esophageal dysmotility. 3. Transient up of a 13 mm barium the GE junction. No definite stricture was identified however this could be correlated with recent endoscopy results. ACT 112: Negative or not required by law. Electronically signed by: Jed Huizar M.D. 10/19/2019 8:32 AM
--- NOTE | 2019-10-19 08:47 | Anesthesiology Progress Note ---
Date of Service October 19, 2019 Anesthesia Post Procedure Vital Signs Vital Signs: Temp Pulse Resp BP Pulse Ox 10/19/19 07:21 36.8 C 69 20 145/82 H 97 10/18/19 23:44 36.8 C 63 18 114/68 95 10/18/19 15:21 36.5 C 64 21 138/82 99 10/18/19 14:45 36.6 C 83 14 132/76 98 10/18/19 13:45 61 14 134/81 98 10/18/19 13:10 36.6 C 68 16 144/88 H 96 10/18/19 12:27 78 16 122/74 97 10/18/19 12:12 65 18 128/72 93 10/18/19 12:02 65 18 111/66 94 10/18/19 11:57 73 18 111/56 L 94 10/18/19 10:57 36.9 C 81 20 166/86 H 95 Notes Mental Status: alert / awake / arousable and participated in evaluation Patient Amnestic to Procedure: Yes Nausea / Vomiting: adequately controlled Pain: adequately controlled Airway Patency, RR, SpO2: stable & adequate BP & HR: stable & adequate Hydration State: stable & adequate Anesthetic Complications: no major complications apparent and Pt Satisfied with anesthetic care
[2019-10-19] MEDS: LACTOBACILLUS ACIDOPHILUS (FLORANEX) TAB PO SCH ×2 (08:53→11:31)
[2019-10-19] MEDS: MAGNESIUM SULFATE / D5W 1 GM/100 ML BAG IV SCH ×2 (08:53→10:15)
[2019-10-19] MEDS: FLECAINIDE ACETATE 100 MG TABLET PO SCH (08:53)
[2019-10-19] MEDS: FAMOTIDINE 20 MG in SYRINGE 3 ML IV SCH (08:53)
[2019-10-19] MEDS: dilTIAZem HCL 120 MG CAPCR PO SCH (08:53)
[2019-10-19] MEDS: PANTOprazole 40 MG TAB PO SCH (08:53)
--- NOTE | 2019-10-19 09:33 | Gastroenterology Progress Note ---
Date of Service October 19, 2019 Assessment & Plan (1) Hiatal hernia: (2) Diarrhea: (3) Gastritis: (4) Gastric polyp: Recs: 1. f/u stool studies, if negative and diarrhea persists, will need outpatient colonoscopy with biopsies. 2. PPI protonix 40 mg BID for the next 3 months, if no improvement will consider manometry and possible TIF to repair hernia 3. f/u path results 4. she can follow up with me in the GI office in 1-2 weeks as an outpatient GI will sign off, please recall as needed. Subjective no events overnight, doing well, notes diarrhea is improving. underwent EGD yesterday which showed hiatal hernia and gastritis and gastric polyps. stool culture for diarrhea is pending. afebrile. barium swallow shows hiatal hernia and esophageal dysmotility. Review of Systems Constitutional: no fever and no chills Respiratory: no cough, no dyspnea and no dyspnea on exertion Cardiovascular: no chest pain and no dyspnea Gastrointestinal: as per Subjective / HPI Psychiatric: no depression and no anxiety Physical Exam Constitutional: WD/WN, vitals as above Respiratory: normal respiratory effort, lungs clear to auscultation Cardiovascular: RRR, no murmur, no edema Gastrointestinal (Abdomen): normal bowel sounds, soft, nontender, no hepatosplenomegaly Musculoskeletal: no lower extremity edema Psychiatric: A+Ox3, euthymic affect Results & Data Vital Signs (Past 12 Hours) Vital Signs Temp Pulse Resp BP Pulse Ox 10/19/19 07:21 36.8 C 69 20 145/82 H 97 10/18/19 23:44 36.8 C 63 18 114/68 95 PG Care Time/CCT Total # of Minutes Spent Total Time Spent with Patient: Total time spent is greater than 50% in coordination of care (as documented) at patient's floor/unit and/or counseling patient: Coding Level of Care Code 29589 Subseq Hosp Care Lvl 3 Diagnoses Hiatal hernia K44.9 Diarrhea R19.7 Gastritis K29.00 Gastritis type: unspecified gastritis Chronicity: acute Gastritis bleeding: without bleeding Gastric polyp K31.7 (1) Gastritis Gastritis type: unspecified gastritis Chronicity: acute Gastritis bleeding: without bleeding Qualified Code(s): K29.00 - Acute gastritis without bleeding
[2019-10-19] MEDS: APIXABAN 5 MG TABLET PO SCH (10:15)
--- NOTE | 2019-10-19 13:39 | Discharge Summary ---
Date of Service October 19, 2019 Admission HPI Per Admitting Provider Flores Gong is a 64 year old female who presents to the ER after getting a call from her PCP office that her potassium was critically low. She reports a recent history of distinct episodes of nausea, vomiting, belching followed by diarrhea. First episode I actually discharged her in August and suspected viral gastroenteritis at the time. On this episode she did have fevers and chills which was unique compared to her other episodes. In addition her was also sick with a similar illness just after the patient was sick. She feels like she managed to completely recover from this first episode However episode returned in September and she returned to the ER when CT showed non specific enteritis. Episode started with nausea, vomiting, belching followed by watery diarrhea. She is unsure what set off this episode but she went to [id number] after the ER and was much more sick following this for a number of days. Took a week to fully improve. She was given pantoprazole however after her diarrhea started she stopped this after only 3 days as she read the side effects of pantoprazole include diarrhea. Her most recent episode started on Tuesday (4 days prior to admission) and very correlated to orange juice. She is no longer vomiting but still having watery diarrhea. She went to her PCP office yesterday and lab work was taken and she was called yesterday to come to the ER due to severe hypokalemia. She does note night time cramps likely related to her hypomagnesemia and hypokalemia. Diarrhea - appears to correlate to after her vomiting illness. 1-2 times/day. Watery. Lab work sent to [facility], not available at this time but she says stool studies came back negative other than ova and parasites which is still pending at this time. No antibiotics in the last 2 months. She reports high levels of stress currently related to the of her ex- where she had to make the decision to take out his feeding tube around [place] time. She reports always getting depressed and having high anxiety at this time of year and wonders whether her stress levels have anything to do with her current symptoms. She takes hydroxyzine for anxiety PRN which sometimes works. Admission Exam Per Admitting Provider Refer to H&P. Principal Diagnosis Gastritis, Hiatal hernia Discharge Exam General: Resting comfortably HEENT: NC/AT; PERRLA with EOMI; [place] conjunctiva, MMM. No erythema of posterior pharynx Neck: Supple and nontender Cardiac: RRR Lungs: CTA bilaterally Abdomen: Bowel normoactive X 4; Nontender to palpation Extremities: Warm. No edema present Neuro: No focal weakness Skin: No rash Discharge Data Allergies Allergy/AdvReac Type Severity Reaction Status Date / Time No Known Allergies Allergy Unverified 10/17/19 09:30 Consultations 10/17/19 10:49 ED Decision to Admit Stat 10/17/19 12:40 Consult Gastroenterology Routine Procedures Performed Operation Date: 10/18/19 16:15 Actual Procedures p EGD Biopsy Cytology - Esau Ohara MD Ordered Studies 10/19/19 08:15 FL barium swallow w/air RTN Routine Hospital Course (1) Nausea and vomiting: Likely related to acute gastritis. S/p EGD on 10/18, had erythema of gastric antrum, medium sized hiatal hernia and two 3 mm sessile polyps (biopsies pending) Tolerating diet prior to discharge. Started Protonix PO BID - encouraged patient to continue to use PPI at home for gastritis. (2) Hiatal hernia: Medium to large, noted on EGD. Barium swallow: probable small hiatal hernia, moderate esophageal dysmotility, transient up to 13 mm barium the GE junction. May require repair in the future if no improvement in symptoms. F/u with GI in 1-2 weeks. (3) Gastritis: Likely leading to N/V; she d/c'ed Protonix after 3 days due to concern it was causing diarrhea. Discharge on Protonix BID x 3 months. (4) A-fib: Diagnosed 2 yrs ago; continued Diltiazem and Flecainide. Resumed home Eliquis this morning. (5) HTN (hypertension): Continued home Diltiazem as prescribed. (6) Anxiety: Ativan 0.5 mg q4hr prn. (7) Diarrhea: Unclear etiology -- may be related to viral gastroenteritis episodes at home as close contacts were also ill. C. diff cancelled due to lack of BM. Stool cultures negative. Can take Imodium prn at home. Will need colonoscopy with biopsies if no improvement at home. (8) Acute kidney failure: Creatinine was 1.7 on admission -- prerenal related to dehydration. IV fluids at 125 cc/hr. Creatinine improved to baseline. (9) Acute hypokalemia: Severe level, 2.4, on admission in setting of vomiting and diarrhea. Replaced prn. (10) Hypomagnesemia: Replaced prn. (11) DVT prophylaxis: SCDs; resumed home Eliquis on 10/19. Discharged to home on 10/19/19. Total Time Total Time Spent Total Time Spent (In Minutes): >30 minutes Total Time Includes: Examination of the Patient, Discharge Planning, Medication Reconciliation, Communication With Other Providers and Other Discharge Plan Discharge Items Patient Disposition: Home - Self-Care Reason For Visit: ABDOMINAL PAIN, VOMITING Discharge Diagnosis: Gastritis, Hiatal Hernia Condition on Discharge: Good Goals: You have been hospitalized for an acute medical problem. During your stay at [facility], we have made an effort to correct the problem that brought you to the hospital while keeping you as comfortable as possible. Medications were used to bring your condition under control and your discharge instructions will include directions for any medications you should take after leaving the hospital. Please make sure you see your Primary Care Provider as part of your follow up plan. Activity: As commented below Exercise/Sports: Gradually increase as tolerated Non-emergency contact: Primary Care Provider and Ticket Scheduler Call non-emergency contact if: you have any medication questions, your symptoms worsen and you have a fever Follow-up/Referrals: Esau Ohara MD [Physician] - 10/26/19 9:40 am (Please call [phone] if you need to reschedule this appointment.) Brigido Arnlod MD [Primary Care Provider] - 10/26/19 1:30 pm (If you are unable to keep this appointment, please call [phone] to reschedule.) Diet: Regular Addtl Attending Provider Instructions: 1. Gastritis, Hiatal Hernia * Please take Protonix 40 mg twice daily x 3 months at home. * use carafate three times a day for a week * Please follow up with Dr. Ohara in the outpatient clinic in 1-2 weeks. * Please take Imodium every 4-6 hours as needed for diarrhea; you may need an outpatient colonoscopy with biopsies if diarrhea persists. 2. Please follow up with PCP in 1-2 weeks to discuss this hospital admission. Pending Studies at Discharge: Yes Studies:: Pathology from gastric polyps. Stand-Alone Forms: [facility] Medications and DC Order Prescriptions: New pantoprazole 40 mg Tablet,Delayed Release (Dr/Ec) 40 mg PO BID Qty: 60 RF: 2 Lactobacillus acidoph-L.bulgar [Floranex] 1 million cell Tablet 4 tab PO TIDM 1 Days Qty: 4 RF: 0 sucralfate [Carafate] 1 gram tablet 1 gm PO TID 7 Days Qty: 21 RF: 0 Continued losartan 50 mg tablet 50 mg PO BID Qty: 180 RF: 3 Eliquis 5 mg tablet 5 mg PO BID Qty: 60 RF: 2 flecainide 100 mg tablet 100 mg PO Q12 Qty: 180 RF: 1 hydroxyzine HCl 25 mg tablet 25 mg PO Q6H PRN (Reason: Anxiety) RF: 0 acetaminophen [Tylenol Arthritis Pain] 650 mg Tablet Extended Release 650 mg PO BID PRN (Reason: Pain) RF: 0 diltiazem HCl [DILT-XR] 120 mg capsule,ext.rel 24h degradable 120 mg PO QAM RF: 0 cyanocobalamin (vitamin B-12) 500 mcg Tablet 500 mcg PO QAM RF: 0 Discharge Orders: Discharge Order (Routine); Ordered 10/19/19 Ordered By: Mayuri Guadarrama Admission Data Admit Date/Time: 10/17/19 11:23 Attending Provider: Lazarus Miller Admit Provider: Ronald Bains Primary Care Provider: Brigido Arnold Other Providers: Ronald Bains ; Urban Rogers Other Interventions: Discharge Summary Assessment (RN) Last Done: 10/19/19 11:51 Supervising Physician Co-Signing Physician Notes Patient seen and examined on the day of discharge. I agree with the discharge summary by Mayuri BROWN. I have reviewed the chart including labs, imaging and plans for discharge. patient feeling better on Protonix, asks about using Carafate as well she is tolerating diet she plans to follow up with PCP - Nausea and vomiting, found to have gastritis and hiatal hernia on EGD treat with Protonix 40mg BID x 3 months will prescribe Carafate TID x 7 days follow up with PCP Coding Level of Care Code D/C Day Management >30 mins Diagnoses Nausea and vomiting R11.2 Hiatal hernia K44.9 Gastritis K29.00 Chronicity: acute Gastritis bleeding: without bleeding Gastritis type: unspecified gastritis A-fib I48.0 Atrial fibrillation type: paroxysmal HTN (hypertension) I10 Anxiety F41.9 Diarrhea R19.7 Acute kidney failure N17.9 Acute hypokalemia E87.6 Hypomagnesemia E83.42 DVT prophylaxis Z29.9
[2019-10-19] MEDS ORDERED: FLECAINIDE ACETATE 100 MG TABLET PO SCH (21:00)
== END 2019-10-19 16:29 | disposition home or self-care (01) | DRG 392 ==
LOC: ED 08:22 → SUATTDRO 11:23 → 4W 11:23

== ENCOUNTER 2019-11-18 18:43 | Observation (INO) ==
[2019-11-18] MEDS ORDERED: SODIUM CHLORIDE 0.9% 1000ML 1,000 ML IV ONE ×2 (18:57→20:18)
[2019-11-18] MEDS ORDERED: ONDANSETRON INJ 2 MG/ML 2 ML VIAL IV STA ×2 (18:57→22:18)
--- NOTE | 2019-11-18 19:38 | XRay Report ---
AP CHEST WITH ABDOMINAL SERIES CLINICAL HISTORY: Vomiting. Nausea. Generalized abdominal pain. FINDINGS: An AP upright chest radiograph is compared to study dated 01/01/2019. The examination is degraded by p atient rotation. The cardiomediastinal silhouette is unremarkable. There is mild elevation of the lef t hemidiaphragm and bibasilar atelectasis. No airspace consolidation is seen typical for pneumonia an d there is no large pleural effusion. No pneumothorax is seen. The skeletal structures are osteopenic . The bony thorax is grossly intact. Supine and erect abdominal radiographs are compared to study dated 10/02/2019. There are distended and gas-filled loops of small bowel which measure up to 3.1 cm in diameter. No evidence of intraperitone al free air is seen. There are no abnormal abdominal calcifications. Surgical clips and phleboliths a re observed in the pelvis. The lumbosacral spine and bony pelvis appear intact. IMPRESSION: 1. No active disease in the chest. 2. There are distended and gas-filled loops of small bowel, which could represent bowel obstruction o r ileus. Clinical correlation will be required. 3. No intraperitoneal free air is seen. ACT 112: Negative or not required by law. Electronically signed by: Law Alexander M.D. 11/18/2019 7:36 PM
[2019-11-18 19:47] LABS: Basophils # (auto) 0.02 K/uL (0-0.2); Basophils % (auto) 0.3 %; Eosinophils # (auto) 0.08 K/uL (0-0.5); Eosinophils % (auto) 1.1 %; Hematocrit (blood only) 42.2 % (37-47); Hemoglobin 14.2 g/dL (12.0-16.0); Immature Granulocytes # (auto) 0.01 K/uL (0.00-0.02); Immature Granulocytes % (auto) 0.1 %; Lymphocytes # (auto) 1.23 K/uL (1.2-3.4); Lymphocytes % (auto) 17.1 %; Mean Corpuscular Hgb Conc 33.6 g/dL (32-36); Mean Corpuscular Volume 92.1 fL (80-100); Mean Platelet Volume 9.8 fL (7.4-10.4); Monocytes # (auto) 0.55 K/uL (0.11-0.59); Monocytes % (auto) 7.7 %; Neutrophils # (auto) 5.29 K/uL (1.4-6.5); Neutrophils % (auto) 73.7 %; Platelet Count 300 K/uL (130-400); RDW Standard Deviation 43.5 fL (36.4-46.3); Red Blood Count 4.58 M/uL (4.2-5.4); White Blood Count 7.18 K/uL (4.8-10.8)
[2019-11-18 20:04] LABS: Alanine Aminotransferase 17 U/L (12-78); Albumin Level 4.1 gm/dl (3.4-5.0); Aspartate Aminotransferase 14 U/L (15-37); BUN Creatinine Ratio 16.3 (10-20); Bilirubin Direct < 0.1 mg/dl (0-0.2); Blood Urea Nitrogen 28 mg/dl (7-18); Calcium 9.6 mg/dl (8.5-10.1); Carbon Dioxide 18 mmol/L (21-32); Chloride 105 mmol/L (98-107); Creatinine Clr Calc Pharmacy 28.3 ml/min; Est GFR (African American) 35.8; Est GFR (Non-African American) 30.9; Glucose 136 mg/dl (70-99); Lipase 156 U/L (73-393); Magnesium 1.6 mg/dl (1.8-2.4); Potassium 3.5 mmol/L (3.5-5.1); Sodium 135 mmol/L (136-145)
[2019-11-18 20:07] LABS: Alkaline Phosphatase 111 U/L (45-117); Bilirubin,Total 0.4 mg/dl (0.2-1)
[2019-11-18] MEDS: MAGNESIUM SULFATE / D5W 1 GM/100 ML BAG IV SCH ×2 (20:24→22:11)
[2019-11-18 20:27] LABS: D Dimer < 190 ug/L FEU (0-500); Partial Thromboplastin Time 28.8 Seconds (21.0-31.0); Prothrombin Time 10.9 Seconds (9.0-12.0)
[2019-11-18 20:37] LABS: Troponin I < 0.015 ng/ml (0-0.045)
[2019-11-18 21:35] LABS: Appearance Urine Clear (Clear); Bacteria Urine Automated 2+ (Negative); Bilirubin Urine Negative (Negative); Blood Urine Negative (Negative); Color Urine Yellow; Glucose Urine UA Negative (Negative); Ketones Urine Negative (Negative); Leukocyte Esterase Urine Trace (Negative); Nitrite Urine Negative (Negative); Protein Urine Negative (Negative); RBC Urine Automated 0-4 /hpf (0-4); Specific Gravity Urine 1.017 (1.000-1.030); Urobilinogen Urine Negative (Negative)
[2019-11-18] MEDS ORDERED: ONDANSETRON INJ 2 MG/ML 2 ML VIAL ONE (22:09)
--- NOTE | 2019-11-18 22:57 | CT Scan Report ---
CT SCAN OF THE ABDOMEN AND PELVIS WITHOUT IV CONTRAST CLINICAL HISTORY: Vomiting. COMPARISON STUDY: Abdominal CT dated 10/02/2019. TECHNIQUE: CT scan of the abdomen and pelvis is performed from the lung bases to the proximal femora. Images are reviewed in the axial, sagittal, and coronal planes. IV contrast was not administered for this examination as per the referring clinician. Note that the examination is suboptimal without IV contrast. Oral contrast was attempted and vomited by the patient. A dose lowering technique was utili zed adhering to the principles of ALARA. CT DOSE: 281.14 mGy.cm FINDINGS: Lung bases: The heart is normal in noting a small pericardial effusion. The lung bases are clear noti ng bibasilar scarring/atelectasis. There is a small hiatal hernia. Liver: The unenhanced liver is normal in size, contour, and attenuation. There is no intrahepatic jaret iary ductal dilatation. A 1.3 cm cyst is noted in the right lobe. Gallbladder: Unremarkable. Spleen: Normal in size and attenuation. Pancreas: The unenhanced pancreas is atrophic and grossly unremarkable. Adrenal glands: Unremarkable. Kidneys: The unenhanced kidneys demonstrate cortical atrophy and are without hydronephrosis. There ar e no renal calculi identified. There is no evidence of contour deforming renal mass lesion. Abdominal vasculature: The abdominal aorta is normal in course and caliber noting scattered foci of a therosclerotic calcification. Bowel: The proximal small bowel loops are distended and fluid-filled measuring up to 4.6 cm in diamet er. This gradually transitions to decompressed distal/terminal ileum. Mild wall thickening is suggest ed involving the decompressed distal small bowel. The colon is decompressed. The appearance is consis tent with a bowel obstruction. There is no pneumatosis intestinalis or portal venous gas. No interloo p fluid is identified. The appendix is well-visualized and normal. Peritoneum: There is no intraperitoneal free air or abdominal ascites. Lymphadenopathy: None. Pelvic viscera: The bladder is decompressed and grossly unremarkable. The uterus is surgically absent . No adnexal lesion is seen. Skeletal structures: The skeletal structures are osteopenic. Mild to moderate lumbosacral spondylosis is observed. Sclerotic change is noted in the sacroiliac joints. No lytic or blastic lesions are see n. IMPRESSION: 1. Findings are consistent with a small bowel obstruction. 2. No discrete transition point is identified. The distal small bowel gradually transitions to decomp ressed distal/terminal ileum. The decompressed distal small bowel appears mildly thick-walled and thi s may be related to edema of the distal small bowel or possibly stricture. 3. There is no intraperitoneal free air, interloop fluid, pneumatosis intestinalis, or portal venous gas. 4. Additional findings as above. ACT 112: Negative or not required by law. Electronically signed by: Law Alexander M.D. 11/18/2019 10:55 PM
--- NOTE | 2019-11-18 23:09 | Emergency Department Note ---
Entered by Maren Soriano acting as a scribe for Sebas Lomeli History of Present Illness General Chief complaint: Abdominal Pain Stated complaint: ACID REFLUX, STOMACH PAIN, NAUSEA Time Seen by Provider: 11/18/19 18:50 Source: patient History of Present Illness Location: abdomen and left Pain Consistency: + constant Maximum Pain Intensity: 5 Current Pain Intensity: 5 Relieved By: + none Exacerbated By: + other (vomiting) Associated symptoms: + denies other symptoms (denies diarrhea, urinary symptoms, and bloodin stool or vomit), + nausea/vomiting and + other (abdominal pain, burping); no fever/chills Treatments prior to arrival: none The patient is a 64 year old female who presents to the Emergency Room with complaints of abdominal pain. The patient was seen in the ED 1 month ago with low potassium and magnesium levels. She was admitted and kept overnight. She now complains of left sided abdominal pain and acid reflux with burping. She reports a hiatal hernia and inflammation of the stomach was found upon endoscopy that she had done. The patient complains of nausea, and had 2 episodes of vomiting over the past few days. The patient denies diarrhea, fever, urinary symptoms, blood in stool, or blood in vomit. The patient has A-fib and is on Eliquis. She is also on Protonix. The patient denies past surgery on her abdomen. The patient denies recent travel to [place], [place], [place], [place], or [place] or any COVID 19 positive patients. Home Medications Home Medications Medication Instructions Recorded Confirmed Type acetaminophen [Tylenol Arthritis 650 mg PO BID PRN 11/16/18 11/18/19 History Pain] losartan 50 mg tablet 50 mg PO BID #180 tab 05/21/19 11/18/19 Rx apixaban 5 mg tablet 5 mg PO BID #60 tab 07/20/19 11/18/19 Rx flecainide 100 mg tablet 100 mg PO Q12 #180 tab 08/13/19 11/18/19 Rx diltiazem HCl [DILT-XR] 120 mg PO QAM 09/02/19 11/18/19 History cyanocobalamin (vitamin B-12) 500 mcg PO QAM 09/29/19 11/18/19 History hydroxyzine HCl 25 mg PO Q6H PRN 10/02/19 11/18/19 History pantoprazole 40 mg PO BID #60 tab 10/19/19 11/18/19 Rx famotidine 40 mg PO BID 11/18/19 11/18/19 History Allergies Allergy/AdvReac Type Severity Reaction Status Date / Time No Known Allergies Allergy Verified 11/18/19 19:32 Past Med/Surg History Medical History Atrial fibrillation (Inactive) Cervical cancer 2005 s/p chemo + radiation, yearly Paps HTN (hypertension) (Chronic) Surgical History No pertinent past surgical history Family History Father , 80yo No problems noted. 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 and A total of 10 systems reviewed and were otherwise negative Physical Exam Vital Signs Vital Signs - 24 hr 11/18/19 18:47 11/18/19 18:58 11/18/19 20:02 Temperature 36.8 C Temperature Source Oral Pulse Rate 109 H 77 Pulse Rate from SpO2 Sensor 78 Respiratory Rate 20 20 Blood Pressure 123/85 136/79 Blood Pressure Mean 97 85 Blood Pressure Position Sitting Pulse Oximetry 95 97 Oxygen Delivery Method Room Air Sepsis Recent Fever Within 48 Hours No Sepsis New/Unexplained Change in Mental Status No Sepsis Action Taken by Nursing No Action Required 11/18/19 20:27 11/18/19 20:30 11/18/19 21:00 Temperature Temperature Source Pulse Rate 79 78 88 Pulse Rate from SpO2 Sensor 78 78 88 Respiratory Rate 20 19 18 Blood Pressure Blood Pressure Mean Blood Pressure Position Pulse Oximetry 98 97 95 Oxygen Delivery Method Sepsis Recent Fever Within 48 Hours Sepsis New/Unexplained Change in Mental Status Sepsis Action Taken by Nursing 11/18/19 21:05 11/18/19 21:30 11/18/19 22:00 Temperature Temperature Source Pulse Rate 93 H 102 H 102 H Pulse Rate from SpO2 Sensor 93 H 102 H Respiratory Rate 24 23 18 Blood Pressure 140/83 143/89 H Blood Pressure Mean 100 103 Blood Pressure Position Pulse Oximetry 95 Oxygen Delivery Method Sepsis Recent Fever Within 48 Hours Sepsis New/Unexplained Change in Mental Status Sepsis Action Taken by Nursing 11/18/19 22:01 11/18/19 22:43 11/18/19 22:44 Temperature Temperature Source Pulse Rate 101 H 93 H 94 H Pulse Rate from SpO2 Sensor 101 H 93 H 94 H Respiratory Rate 19 22 18 Blood Pressure 112/84 Blood Pressure Mean 95 Blood Pressure Position Pulse Oximetry 96 97 98 Oxygen Delivery Method Sepsis Recent Fever Within 48 Hours Sepsis New/Unexplained Change in Mental Status Sepsis Action Taken by Nursing GENERAL: She is oriented to person, place, and time. She appears well-developed and well-nourished. She does not appear distressed. HENT: Exam performed. Head: Normocephalic and atraumatic. Right Ear: External ear normal. No mastoid tenderness. Left Ear: External ear normal. No mastoid tenderness. Mouth/Throat: The oropharynx is clear and moist. No trismus in the jaw. No dental abscesses or uvula swelling. No oropharyngeal exudate or tonsillar abscesses. EYES: Conjunctivae and EOM are normal. Pupils are equal, round, and reactive to light. Right eye exhibits no discharge. Left eye exhibits no discharge. No scleral icterus. NECK: Normal range of motion. Neck supple. No JVD present. No spinous process tenderness present. No carotid bruit present. No rigidity. No tracheal deviation and normal range of motion present. No Brudzinski's sign and no Kernig's sign n oted. CV: Normal rate, regular rhythm, normal heart sounds and intact distal pulses. There is no peripheral edema. Palpable radial pulses bue. PULM/CHEST: Effort normal and breath sounds normal. No respiratory distress. No stridor. She has no wheezes. She has no rales. Chest Wall: She exhibits no tenderness. ABD: Pain on palpation of left lower quadrant. The abdomen is soft. Bowel sounds are normal. She has no distension. No mass is present. There is no rebound, no guarding, no Durán's sign and no tenderness at McBurney's point. Rovsig negative MUSC/SKEL: Normal range of motion. There is no peripheral edema, tenderness or deformity. LYMPH: No cervical adenopathy. NEURO: She is alert and oriented to person, place, and time. She has normal strength. No cranial nerve deficit or sensory deficit. Coordination and gait normal. GCS eye subscore is 4. GCS verbal subscore is 5. GCS motor subscore is 6. cerbellar tests wnl. SKIN: Skin is warm and dry. She is not diaphoretic. PSYCH: She has a normal mood and affect. Her behavior is normal. Judgment and thought content normal. Course Course 1852: Past medical records reviewed. The patient was evaluated in room C06. A complete history and physical exam was performed. Continuous Cardiac Monitoring: An order was placed for continuous cardiac monitoring. The monitor shows a rate of 85 with sinus rhythm. 2047: The patients vital signs are stable. Her labs show a magnesium of 1.6. Magnesium will be replaced in ER. Her creatinine was 1.7, and her baseline is 1.1. Otherwise, the patients labs are within normal limits. Imaging shows small bowel obstruction. Patient reports mild improvement of nausea, but still has pain on palpation of left upper quadrant. Given the patients X-ray findings, we will obtain a CT of the abdomen with oral contrast. She will be given additional fluids at this time. 2029: The patient began feeling nausea and was given Zofran. She then vomited up all of the contrast she was given. She will go for CT scan. 2303: The patients vital sign are stable. The patients CT shows small bowl obstruction. Dr. Mcwilliams, [facility] hospitalist, has been notified. Administered Medications Discontinued Medications Sodium Chloride (Nss 1000ml) 1,000 mls @ 999 mls/hr IV .Q1H1M ONE Stop: 11/18/19 19:57 Last Infusion: 11/18/19 20:24 Dose: 0 mls/hr Documented by: [id number] Admin: 11/18/19 19:34 Dose: 999 mls/hr Documented by: [id number] Sodium Chloride (Nss 1000ml) 1,000 mls @ 999 mls/hr IV .Q1H1M ONE Stop: 11/18/19 21:18 Last Infusion: 11/18/19 22:32 Dose: 0 mls/hr Documented by: [id number] Admin: 11/18/19 20:24 Dose: 999 mls/hr Documented by: [id number] Magnesium Sulfate/Dextrose (Magnesium Sulfate / D5w) 1 gm in 100 mls @ 100 mls/hr IV Q1H ANETA Stop: 11/18/19 22:29 Last Infusion: 11/18/19 22:32 Dose: 0 mls/hr Documented by: [id number] Admin: 11/18/19 22:11 Dose: 100 mls/hr Documented by: [id number] Infusion: 11/18/19 22:07 Dose: 0 mls/hr Documented by: [id number] Admin: 11/18/19 20:24 Dose: 100 mls/hr Documented by: [id number] Ondansetron HCl (Zofran) 4 mg IV NOW STA Stop: 11/18/19 18:58 Last Admin: 11/18/19 19:34 Dose: 4 mg Documented by: [id number] Ondansetron HCl (Zofran) Confirm Administered Dose 4 mg .ROUTE .STK-MED ONE Stop: 11/18/19 22:10 Last Admin: 11/18/19 22:11 Dose: 4 mg Documented by: [id number] Ondansetron HCl (Zofran) 4 mg IV NOW STA Stop: 11/18/19 22:19 Last Admin: 11/18/19 22:32 Dose: Not Given Documented by: [id number] Medical Decision Making Medical Records Attestation: I reviewed the patient's medical records. Home Medications Current Medication List: was personally reviewed by [place] Laboratory Data Attestation: I reviewed the patient's lab results. Result diagrams: 11/18/19 19:35 11/18/19 19:35 Lab Results 11/18/19 11/18/19 11/18/19 Range/Units 19:35 19:35 19:35 WBC 7.18 (4.8-10.8) K/uL RBC 4.58 (4.2-5.4) M/uL Hgb 14.2 (12.0-16.0) g/dL Hct 42.2 (37-47) % MCV 92.1 (80-100) fL MCH 31.0 (25-34) pg MCHC 33.6 (32-36) g/dL RDW Std Deviation 43.5 (36.4-46.3) fL RDW Coeff of Anmol 13.0 (11.5-14.5) % Plt Count 300 (130-400) K/uL MPV 9.8 (7.4-10.4) fL Immature Gran % (Auto) 0.1 % Neut % (Auto) 73.7 % Lymph % (Auto) 17.1 % [place] % (Auto) 7.7 % Eos % (Auto) 1.1 % Baso % (Auto) 0.3 % Immature Gran # (Auto) 0.01 (0.00-0.02) K/uL Neut # (Auto) 5.29 (1.4-6.5) K/uL Lymph # (Auto) 1.23 (1.2-3.4) K/uL [place] # (Auto) 0.55 (0.11-0.59) K/uL Eos # (Auto) 0.08 (0-0.5) K/uL Baso # (Auto) 0.02 (0-0.2) K/uL PT 10.9 (9.0-12.0) Seconds INR 1.0 (0.9-1.1) APTT 28.8 (21.0-31.0) Seconds PTT Ratio 1.0 D-Dimer < 190 (0-500) ug/L FEU Sodium 135 L (136-145) mmol/L Potassium 3.5 (3.5-5.1) mmol/L Chloride 105 (98-107) mmol/L Carbon Dioxide 18 L (21-32) mmol/L Anion Gap 12.0 H (3-11) BUN 28 H (7-18) mg/dl Creatinine 1.71 H (0.6-1.2) mg/dl Est Cr Clr Drug Dosing 28.3 ml/min Est GFR ( Amer) 35.8 Est GFR (Non-Af Amer) 30.9 BUN/Creatinine Ratio 16.3 (10-20) Glucose 136 H (70-99) mg/dl Calcium 9.6 (8.5-10.1) mg/dl Magnesium 1.6 L (1.8-2.4) mg/dl Total Bilirubin 0.4 (0.2-1) mg/dl Direct Bilirubin < 0.1 (0-0.2) mg/dl AST 14 L (15-37) U/L ALT 17 (12-78) U/L Alkaline Phosphatase 111 (45-117) U/L Troponin I (0-0.045) ng/ml Total Protein 8.0 (6.4-8.2) gm/dl Albumin 4.1 (3.4-5.0) gm/dl Lipase 156 (73-393) U/L Urine Color Urine Appearance (Clear) Urine pH (4.5-7.5) Ur Specific [place] (1.000-1.030) Urine Protein (Negative) Urine Glucose (UA) (Negative) Urine Ketones (Negative) Urine Blood (Negative) Urine Nitrite (Negative) Urine Bilirubin (Negative) Urine Urobilinogen (Negative) Ur Leukocyte Esterase (Negative) Urine WBC (Auto) (0-5) /hpf Urine RBC (Auto) (0-4) /hpf U Hyaline Cast (Auto) (0-5) /lpf U Epithel Cells (Auto) (0-5) /lpf Urine Bacteria (Auto) (Negative) 11/18/19 11/18/19 Range/Units 19:35 21:25 WBC (4.8-10.8) K/uL RBC (4.2-5.4) M/uL Hgb (12.0-16.0) g/dL Hct (37-47) % MCV (80-100) fL MCH (25-34) pg MCHC (32-36) g/dL RDW Std Deviation (36.4-46.3) fL RDW Coeff of Anmol (11.5-14.5) % Plt Count (130-400) K/uL MPV (7.4-10.4) fL Immature Gran % (Auto) % Neut % (Auto) % Lymph % (Auto) % [place] % (Auto) % Eos % (Auto) % Baso % (Auto) % Immature Gran # (Auto) (0.00-0.02) K/uL Neut # (Auto) (1.4-6.5) K/uL Lymph # (Auto) (1.2-3.4) K/uL [place] # (Auto) (0.11-0.59) K/uL Eos # (Auto) (0-0.5) K/uL Baso # (Auto) (0-0.2) K/uL PT (9.0-12.0) Seconds INR (0.9-1.1) APTT (21.0-31.0) Seconds PTT Ratio D-Dimer (0-500) ug/L FEU Sodium (136-145) mmol/L Potassium (3.5-5.1) mmol/L Chloride (98-107) mmol/L Carbon Dioxide (21-32) mmol/L Anion Gap (3-11) BUN (7-18) mg/dl Creatinine (0.6-1.2) mg/dl Est Cr Clr Drug Dosing ml/min Est GFR ( Amer) Est GFR (Non-Af Amer) BUN/Creatinine Ratio (10-20) Glucose (70-99) mg/dl Calcium (8.5-10.1) mg/dl Magnesium (1.8-2.4) mg/dl Total Bilirubin (0.2-1) mg/dl Direct Bilirubin (0-0.2) mg/dl AST (15-37) U/L ALT (12-78) U/L Alkaline Phosphatase (45-117) U/L Troponin I < 0.015 (0-0.045) ng/ml Total Protein (6.4-8.2) gm/dl Albumin (3.4-5.0) gm/dl Lipase (73-393) U/L Urine Color Yellow Urine Appearance Clear (Clear) Urine pH 5.0 (4.5-7.5) Ur Specific [place] 1.017 (1.000-1.030) Urine Protein Negative (Negative) Urine Glucose (UA) Negative (Negative) Urine Ketones Negative (Negative) Urine Blood Negative (Negative) Urine Nitrite Negative (Negative) Urine Bilirubin Negative (Negative) Urine Urobilinogen Negative (Negative) Ur Leukocyte Esterase Trace H (Negative) Urine WBC (Auto) 5-10 H (0-5) /hpf Urine RBC (Auto) 0-4 (0-4) /hpf U Hyaline Cast (Auto) 1-5 (0-5) /lpf U Epithel Cells (Auto) 10-20 H (0-5) /lpf Urine Bacteria (Auto) 2+ H (Negative) Imaging Data Radiologist's Impression: Radiology results as stated below per my review and the radiologist's interpretation: AP CHEST WITH ABDOMINAL SERIES CLINICAL HISTORY: Vomiting. Nausea. Generalized abdominal pain. FINDINGS: An AP upright chest radiograph is compared to study dated 01/01/2019. The examination is degraded by patient rotation. The cardiomediastinal silhouette is unremarkable. There is mild elevation of the left hemidiaphragm and bibasilar atelectasis. No airspace consolidation is seen typical for pneumonia and there is no large pleural effusion. No pneumothorax is seen. The skeletal structures are osteopenic. The bony thorax is grossly intact. Supine and erect abdominal radiographs are compared to study dated 10/02/2019. There are distended and gas-filled loops of small bowel which measure up to 3.1 cm in diameter. No evidence of intraperitoneal free air is seen. There are no abnormal abdominal calcifications. Surgical clips and phleboliths are observed in the pelvis. The lumbosacral spine and bony pelvis appear intact. IMPRESSION: 1. No active disease in the chest. 2. There are distended and gas-filled loops of small bowel, which could represent bowel obstruction or ileus. Clinical correlation will be required. 3. No intraperitoneal free air is seen. ACT 112: Negative or not required by law. Electronically signed by: Law Alexander M.D. 11/18/2019 7:[address] SCAN OF THE ABDOMEN AND PELVIS WITHOUT IV CONTRAST CLINICAL HISTORY: Vomiting. COMPARISON STUDY: Abdominal CT dated 10/02/2019. TECHNIQUE: CT scan of the abdomen and pelvis is performed from the lung bases to the proximal femora. Images are reviewed in the axial, sagittal, and coronal planes. IV contrast was not administered for this examination as per the referring clinician. Note that the examination is suboptimal without IV contrast. Oral contrast was attempted and vomited by the patient. A dose lowering technique was utilized adhering to the principles of ALARA. CT DOSE: 281.14 mGy.cm FINDINGS: Lung bases: The heart is normal in noting a small pericardial effusion. The lung bases are clear noting bibasilar scarring/atelectasis. There is a small hiatal hernia. Liver: The unenhanced liver is normal in size, contour, and attenuation. There is no intrahepatic biliary ductal dilatation. A 1.3 cm cyst is noted in the right lobe. Gallbladder: Unremarkable. Spleen: Normal in size and attenuation. Pancreas: The unenhanced pancreas is atrophic and grossly unremarkable. Adrenal glands: Unremarkable. Kidneys: The unenhanced kidneys demonstrate cortical atrophy and are without hydronephrosis. There are no renal calculi identified. There is no evidence of contour deforming renal mass lesion. Abdominal vasculature: The abdominal aorta is normal in course and caliber noting scattered foci of atherosclerotic calcification. Bowel: The proximal small bowel loops are distended and fluid-filled measuring up to 4.6 cm in diameter. This gradually transitions to decompressed distal/ terminal ileum. Mild wall thickening is suggested involving the decompressed distal small bowel. The colon is decompressed. The appearance is consistent with a bowel obstruction. There is no pneumatosis intestinalis or portal venous gas. No interloop fluid is identified. The appendix is well-visualized and normal. Peritoneum: There is no intraperitoneal free air or abdominal ascites. Lymphadenopathy: None. Pelvic viscera: The bladder is decompressed and grossly unremarkable. The uterus is surgically absent. No adnexal lesion is seen. Skeletal structures: The skeletal structures are osteopenic. Mild to moderate lumbosacral spondylosis is observed. Sclerotic change is noted in the sacroiliac joints. No lytic or blastic lesions are seen. IMPRESSION: 1. Findings are consistent with a small bowel obstruction. 2. No discrete transition point is identified. The distal small bowel gradually transitions to decompressed distal/terminal ileum. The decompressed distal small bowel appears mildly thick-walled and this may be related to edema of the distal small bowel or possibly stricture. 3. There is no intraperitoneal free air, interloop fluid, pneumatosis intestinalis, or portal venous gas. 4. Additional findings as above. ACT 112: Negative or not required by law. Electronically signed by: Law Alexander M.D. 11/18/2019 10:55 PM ECG Data Attestation: I personally reviewed and interpreted this ECG as follows: Indication: + abdominal pain Rate (beats per minute): 85 Rhythm: + sinus rhythm ECG Intervals/blocks: + First degree AV block ECG ST segments: no ST depression and no ST elevation ECG Findings: + Other (S1, Q3, T3 pattern present) MDM Narrative 1852: Past medical records reviewed. The patient was evaluated in room C06. A complete history and physical exam was performed. Continuous Cardiac Monitoring: An order was placed for continuous cardiac mo nitoring. The monitor shows a rate of 85 with sinus rhythm. 2047: The patients vital signs are stable. Her labs show a magnesium of 1.6. Magnesium will be replaced in ER. Her creatinine was 1.7, and her baseline is 1.1. Otherwise, the patients labs are within normal limits. Imaging shows small bowel obstruction. Patient reports mild improvement of nausea, but still has pain on palpation of left upper quadrant. Given the patients X-ray findings, we will obtain a CT of the abdomen with oral contrast. She will be given additional fluids at this time. 2030: The patient began feeling nausea and was given Zofran. She then vomited up all of the contrast she was given. She will go for CT scan. 2304: The patients vital sign are stable. The patients CT shows small bowl obstruction. Dr. Mcwilliams, [facility] hospitalist, has been notified. Impression & Plan Small bowel obstruction Discharge Plan Visit Data Chief Complaint: Abdominal Pain Stated Complaint: ACID REFLUX, STOMACH PAIN, NAUSEA ED Provider: Sebas Lomeli Discharge Problem: Small bowel obstruction Forms Stand Alone Forms: My [facility] Prescriptions Prescriptions: No Action losartan 50 mg tablet 50 mg PO BID Qty: 180 RF: 3 Eliquis 5 mg tablet 5 mg PO BID Qty: 60 RF: 2 flecainide 100 mg tablet 100 mg PO Q12 Qty: 180 RF: 1 hydroxyzine HCl 25 mg tablet 25 mg PO Q6H PRN (Reason: Anxiety) RF: 0 pantoprazole 40 mg Tablet,Delayed Release (Dr/Ec) 40 mg PO BID Qty: 60 RF: 2 famotidine 40 mg tablet 40 mg PO BID RF: 0 acetaminophen [Tylenol Arthritis Pain] 650 mg Tablet Extended Release 650 mg PO BID PRN (Reason: Pain) RF: 0 diltiazem HCl [DILT-XR] 120 mg capsule,ext.rel 24h degradable 120 mg PO QAM RF: 0 cyanocobalamin (vitamin B-12) 500 mcg Tablet 500 mcg PO QAM RF: 0 The scribe's documentation has been prepared under my direction and personally reviewed by me in its entirety. I confirm that the note above accurately reflects all work, treatment, procedures, and medical decision making performed by me.
--- NOTE | 2019-11-19 00:38 | History & Physical Report ---
Date of Service November 19, 2019 Assessment & Plan (1) Small bowel obstruction: 64yo C female presenting with suspected SBO. Patient with no history of abdominal surgery. She had cervical CA s/p internal XRT, reports that the radiation "narrowed her colon". Presently afebrile, HD stable, NAD. She is without nausea, abdominal pain controlled, +flatus, +BM, +BS. -Admit to medical floor -NPO for now. Advance diet to clear liquids in AM if patient doing well. -IVF and electrolyte repletion -Zofran PRN nausea -NGT, Surgical consultation should patient clinically worsen Present on Admission?: Yes (2) Intestinal infection due to Campylobacter jejuni: s/p treatment with Azithromycin x 3 day course. Patient reports complete resolution of symptoms. Uncertain where she obtained the infection. C. Jejuni can be associated with inflammation, obstruction after the infection has been treated. She denies diarrhea now. Present on Admission?: Yes (3) Hypomagnesemia: Repleted in the ER with 2gm. -Repeat Mg in AM Present on Admission?: Yes (4) CKD (chronic kidney disease) stage 3, GFR 30-59 ml/min: Mildly elevated BUN and Cr from baseline. Most likely secondary to volume contraction. Patient reports poor appetite and decreased PO intake over the last few days. She received IVF x 2L in the ER -Continue NSS x 1 L -Repeat BMP in AM -Avoid nephrotoxic agents Present on Admission?: Yes (5) Anxiety: Chronic. Stable -Hydroxyzine PRN Present on Admission?: Yes (6) A-fib: Presently in NSR. Anticoagulated with Apixaban -Continue Apixaban -Continue Flecainide -Continue Diltiazem -Consider repeat EKG to assess QT interval if patient is using much Zofran for nausea - QT prolonging effects Present on Admission?: Yes (7) HTN (hypertension): Blood pressure stable -Continue Diltiazem -Continue Losartan -Continue to monitor Present on Admission?: Yes (8) Gastritis: History of gastritis, hiatal hernia -Conitnue Pepcid and Protonix F/E/N - NSS, monitor electrolytes, check PO4 x 1 and replete if needed, NPO for now Ppx - anticoagulated with Apixaban for AF Code - Full per discussion with patient, at bedside Dispo - Admit to medical floor, conservative management of SBO History of Present Illness Chief Complaint: abdominal pain Primary Care Provider: Brigido Arnold MD Flores Crews is a 64yo C female with history of AF on Flecainide/Eliquis, HTN, CKD, Cervical CA s/p XRT presenting with SBO. Patient was recently admitted to [facility] on 10/17/19 with n/v/d. She was diagnosed with gastritis, hiatal hernia and found to gave Campylobacter jejuni + gastroenteritis. She completed three days of Azithromycin and reported complete resolution of symptoms. Patient had some nausea with vomiting two times this week. She felt tired yesterday. Today she felt ill, poor appetite as well as LUQ abdominal pain, nausea and belching. She denies fevers/chills. BMs have been loose for the last three days, non-bloody. No abdominal distention. She is still passing gas, last BM today in the ER, small amount. No additional complaints at this time ER Course: Magnesium x 2gm, Zofran, NSS x 2L Allergies Allergy/AdvReac Type Severity Reaction Status Date / Time No Known Allergies Allergy Verified 11/18/19 19:32 Home Medications Home Medications Medication Instructions Recorded Confirmed Type acetaminophen [Tylenol Arthritis 650 mg PO BID PRN 11/16/18 11/18/19 History Pain] losartan 50 mg tablet 50 mg PO BID #180 tab 05/21/19 11/18/19 Rx apixaban 5 mg tablet 5 mg PO BID #60 tab 07/20/19 11/18/19 Rx flecainide 100 mg tablet 100 mg PO Q12 #180 tab 08/13/19 11/18/19 Rx diltiazem HCl [DILT-XR] 120 mg PO QAM 09/02/19 11/18/19 History cyanocobalamin (vitamin B-12) 500 mcg PO QAM 09/29/19 11/18/19 History hydroxyzine HCl 25 mg PO Q6H PRN 10/02/19 11/18/19 History pantoprazole 40 mg PO BID #60 tab 10/19/19 11/18/19 Rx famotidine 40 mg PO BID 11/18/19 11/18/19 History Past Med/Surg History Medical History Atrial fibrillation (Inactive) Cervical cancer 2005 s/p chemo + radiation, yearly Paps HTN (hypertension) (Chronic) Surgical History No pertinent past surgical history Family History Father , 80yo No problems noted. Mother , 83yo Dementia Other No pertinent family history in first degree relatives Social History Preferred Language: Polish Communication Ability: Effective Visual Impairment: No Limitations Hearing Ability: Normal Motor Route Carrier Required: No Beliefs That Will Affect Care: None marital status: Current Living Situation: Spouse Feels Safe at Home: Yes Smoking Status: Never smoker Second Hand Exposure: No ; Hx Alcohol Use: No Hx Substance Use: No Review of Systems Review of Systems: All systems reviewed & are unremarkable except as noted in HPI & below Physical Exam Physical Exam: General: patient resting comfortably, NAD, non-toxic in appearance, AA&O x 4 Skin: warm, dry, intact, no rashes or lesions HEENT: NC/AT, PERRL, EOMI, anicteric sclera, conjunctiva without injection, external ear normal to inspection and nontender, nares patent, moist mucus membranes, dentition intact, no oropharyngeal lesions, neck supple, trachea midline, no LAD, no thyromegaly, no JVD Heart: +S1/S2, regular, no m/r/g Lungs: equal air entry bilaterally, no rales/rhonchi/wheezes Abd: +BS present, mildly hypoactive, soft, NT/ND, no masses/organomegaly/ascites Ext: warm, 2+ pulses in UE/LE bilaterally, no clubbing/cyanosis or edema Neuro: nonfocal, patient AA&O x 4, speech intact, no facial droop, moving all extremities on command with equal strength 5/5 Results & Data Vital Signs (Past 12 Hours) Vital Signs Temp Pulse Resp BP Pulse Ox 11/18/19 22:44 94 H 18 98 11/18/19 22:43 93 H 22 112/84 97 11/18/19 22:01 101 H 19 96 11/18/19 22:00 102 H 18 143/89 H 95 11/18/19 21:30 102 H 23 11/18/19 21:05 93 H 24 140/83 11/18/19 21:00 88 18 95 11/18/19 20:30 78 19 97 11/18/19 20:27 79 20 98 11/18/19 20:02 77 20 136/79 97 11/18/19 18:47 36.8 C 109 H 20 123/85 95 Laboratory Results Lab Results 11/18/19 11/18/19 11/18/19 Range/Units 19:35 19:35 19:35 WBC 7.18 (4.8-10.8) K/uL RBC 4.58 (4.2-5.4) M/uL Hgb 14.2 (12.0-16.0) g/dL Hct 42.2 (37-47) % MCV 92.1 (80-100) fL MCH 31.0 (25-34) pg MCHC 33.6 (32-36) g/dL RDW Std Deviation 43.5 (36.4-46.3) fL RDW Coeff of Anmol 13.0 (11.5-14.5) % Plt Count 300 (130-400) K/uL MPV 9.8 (7.4-10.4) fL Immature Gran % (Auto) 0.1 % Neut % (Auto) 73.7 % Lymph % (Auto) 17.1 % Campbell % (Auto) 7.7 % Eos % (Auto) 1.1 % Baso % (Auto) 0.3 % Immature Gran # (Auto) 0.01 (0.00-0.02) K/uL Neut # (Auto) 5.29 (1.4-6.5) K/uL Lymph # (Auto) 1.23 (1.2-3.4) K/uL Campbell # (Auto) 0.55 (0.11-0.59) K/uL Eos # (Auto) 0.08 (0-0.5) K/uL Baso # (Auto) 0.02 (0-0.2) K/uL PT 10.9 (9.0-12.0) Seconds INR 1.0 (0.9-1.1) APTT 28.8 (21.0-31.0) Seconds PTT Ratio 1.0 D-Dimer < 190 (0-500) ug/L FEU Sodium 135 L (136-145) mmol/L Potassium 3.5 (3.5-5.1) mmol/L Chloride 105 (98-107) mmol/L Carbon Dioxide 18 L (21-32) mmol/L Anion Gap 12.0 H (3-11) BUN 28 H (7-18) mg/dl Creatinine 1.71 H (0.6-1.2) mg/dl Est Cr Clr Drug Dosing 28.3 ml/min Est GFR ( Amer) 35.8 Est GFR (Non-Af Amer) 30.9 BUN/Creatinine Ratio 16.3 (10-20) Glucose 136 H (70-99) mg/dl Calcium 9.6 (8.5-10.1) mg/dl Magnesium 1.6 L (1.8-2.4) mg/dl Total Bilirubin 0.4 (0.2-1) mg/dl Direct Bilirubin < 0.1 (0-0.2) mg/dl AST 14 L (15-37) U/L ALT 17 (12-78) U/L Alkaline Phosphatase 111 (45-117) U/L Troponin I (0-0.045) ng/ml Total Protein 8.0 (6.4-8.2) gm/dl Albumin 4.1 (3.4-5.0) gm/dl Lipase 156 (73-393) U/L Urine Color Urine Appearance (Clear) Urine pH (4.5-7.5) Ur Specific [place] (1.000-1.030) Urine Protein (Negative) Urine Glucose (UA) (Negative) Urine Ketones (Negative) Urine Blood (Negative) Urine Nitrite (Negative) Urine Bilirubin (Negative) Urine Urobilinogen (Negative) Ur Leukocyte Esterase (Negative) Urine WBC (Auto) (0-5) /hpf Urine RBC (Auto) (0-4) /hpf U Hyaline Cast (Auto) (0-5) /lpf U Epithel Cells (Auto) (0-5) /lpf Urine Bacteria (Auto) (Negative) 11/18/19 11/18/19 Range/Units 19:35 21:25 WBC (4.8-10.8) K/uL RBC (4.2-5.4) M/uL Hgb (12.0-16.0) g/dL Hct (37-47) % MCV (80-100) fL MCH (25-34) pg MCHC (32-36) g/dL RDW Std Deviation (36.4-46.3) fL RDW Coeff of Anmol (11.5-14.5) % Plt Count (130-400) K/uL MPV (7.4-10.4) fL Immature Gran % (Auto) % Neut % (Auto) % Lymph % (Auto) % Campbell % (Auto) % Eos % (Auto) % Baso % (Auto) % Immature Gran # (Auto) (0.00-0.02) K/uL Neut # (Auto) (1.4-6.5) K/uL Lymph # (Auto) (1.2-3.4) K/uL Campbell # (Auto) (0.11-0.59) K/uL Eos # (Auto) (0-0.5) K/uL Baso # (Auto) (0-0.2) K/uL PT (9.0-12.0) Seconds INR (0.9-1.1) APTT (21.0-31.0) Seconds PTT Ratio D-Dimer (0-500) ug/L FEU Sodium (136-145) mmol/L Potassium (3.5-5.1) mmol/L Chloride (98-107) mmol/L Carbon Dioxide (21-32) mmol/L Anion Gap (3-11) BUN (7-18) mg/dl Creatinine (0.6-1.2) mg/dl Est Cr Clr Drug Dosing ml/min Est GFR ( Amer) Est GFR (Non-Af Amer) BUN/Creatinine Ratio (10-20) Glucose (70-99) mg/dl Calcium (8.5-10.1) mg/dl Magnesium (1.8-2.4) mg/dl Total Bilirubin (0.2-1) mg/dl Direct Bilirubin (0-0.2) mg/dl AST (15-37) U/L ALT (12-78) U/L Alkaline Phosphatase (45-117) U/L Troponin I < 0.015 (0-0.045) ng/ml Total Protein (6.4-8.2) gm/dl Albumin (3.4-5.0) gm/dl Lipase (73-393) U/L Urine Color Yellow Urine Appearance Clear (Clear) Urine pH 5.0 (4.5-7.5) Ur Specific [place] 1.017 (1.000-1.030) Urine Protein Negative (Negative) Urine Glucose (UA) Negative (Negative) Urine Ketones Negative (Negative) Urine Blood Negative (Negative) Urine Nitrite Negative (Negative) Urine Bilirubin Negative (Negative) Urine Urobilinogen Negative (Negative) Ur Leukocyte Esterase Trace H (Negative) Urine WBC (Auto) 5-10 H (0-5) /hpf Urine RBC (Auto) 0-4 (0-4) /hpf U Hyaline Cast (Auto) 1-5 (0-5) /lpf U Epithel Cells (Auto) 10-20 H (0-5) /lpf Urine Bacteria (Auto) 2+ H (Negative) Diagnostic Findings AP CHEST WITH ABDOMINAL SERIES CLINICAL HISTORY: Vomiting. Nausea. Generalized abdominal pain. FINDINGS: An AP upright chest radiograph is compared to study dated 01/01/2019. The examination is degraded by patient rotation. The cardiomediastinal silhouette is unremarkable. There is mild elevation of the left hemidiaphragm and bibasilar atelectasis. No airspace consolidation is seen typical for pneumonia and there is no large pleural effusion. No pneumothorax is seen. The skeletal structures are osteopenic. The bony thorax is grossly intact. Supine and erect abdominal radiographs are compared to study dated 10/02/2019. There are distended and gas-filled loops of small bowel which measure up to 3.1 cm in diameter. No evidence of intraperitoneal free air is seen. There are no abnormal abdominal calcifications. Surgical clips and phleboliths are observed in the pelvis. The lumbosacral spine and bony pelvis appear intact. IMPRESSION: 1. No active disease in the chest. 2. There are distended and gas-filled loops of small bowel, which could represent bowel obstruction or ileus. Clinical correlation will be required. 3. No intraperitoneal free air is seen. ACT 112: Negative or not required by law. Electronically signed by: Law Alexander M.D. 11/18/2019 7:36 PM Dictated: 11/18/191932 Transcribed: 11/18/191932 CT SCAN OF THE ABDOMEN AND PELVIS WITHOUT IV CONTRAST CLINICAL HISTORY: Vomiting. COMPARISON STUDY: Abdominal CT dated 10/02/2019. TECHNIQUE: CT scan of the abdomen and pelvis is performed from the lung bases to the proximal femora. Images are reviewed in the axial, sagittal, and coronal planes. IV contrast was not administered for this examination as per the referring clinician. Note that the examination is suboptimal without IV contrast. Oral contrast was attempted and vomited by the patient. A dose lowering technique was utilized adhering to the principles of ALARA. CT DOSE: 281.14 mGy.cm FINDINGS: Lung bases: The heart is normal in noting a small pericardial effusion. The lung bases are clear noting bibasilar scarring/atelectasis. There is a small hiatal hernia. Liver: The unenhanced liver is normal in size, contour, and attenuation. There is no intrahepatic biliary ductal dilatation. A 1.3 cm cyst is noted in the right lobe. Gallbladder: Unremarkable. Spleen: Normal in size and attenuation. Pancreas: The unenhanced pancreas is atrophic and grossly unremarkable. Adrenal glands: Unremarkable. Kidneys: The unenhanced kidneys demonstrate cortical atrophy and are without hydronephrosis. There are no renal calculi identified. There is no evidence of contour deforming renal mass lesion. Abdominal vasculature: The abdominal aorta is normal in course and caliber noting scattered foci of atherosclerotic calcification. Bowel: The proximal small bowel loops are distended and fluid-filled measuring up to 4.6 cm in diameter. This gradually transitions to decompressed distal/terminal ileum. Mild wall thickening is suggested involving the decompressed distal small bowel. The colon is decompressed. The appearance is consistent with a bowel obstruction. There is no pneumatosis intestinalis or portal venous gas. No interloop fluid is identified. The appendix is well- visualized and normal. Peritoneum: There is no intraperitoneal free air or abdominal ascites. Lymphadenopathy: None. Pelvic viscera: The bladder is decompressed and grossly unremarkable. The uterus is surgically absent. No adnexal lesion is seen. Skeletal structures: The skeletal structures are osteopenic. Mild to moderate lumbosacral spondylosis is observed. Sclerotic change is noted in the sacroiliac joints. No lytic or blastic lesions are seen. IMPRESSION: 1. Findings are consistent with a small bowel obstruction. 2. No discrete transition point is identified. The distal small bowel gradually transitions to decompressed distal/terminal ileum. The decompressed distal small bowel appears mildly thick-walled and this may be related to edema of the distal small bowel or possibly stricture. 3. There is no intraperitoneal free air, interloop fluid, pneumatosis intestinalis, or portal venous gas. 4. Additional findings as above. ACT 112: Negative or not required by law. Electronically signed by: Law Alexander M.D. 11/18/2019 10:55 PM Dictated: 11/18/192247 Transcribed: 11/18/192247 ECG Indication: abdominal pain Rhythm: normal sinus Findings: + 1st degree AV block and + T-wave inversion Code Status & VTE Plan Code Status FULL CODE PG Care Time/CCT Total # of Minutes Spent Total Time Spent with Patient: Total time spent is greater than 50% in coordination of care (as documented) at patient's floor/unit and/or counseling patient: Coding Level of Care Code 54733 Initial Inpt Care Lvl 3 Diagnoses Small bowel obstruction K56.609 Intestinal infection due to Campylobacter jejuni A04.5 Hypomagnesemia E83.42 CKD (chronic kidney disease) stage 3, GFR 30-59 ml/min N18.3 Anxiety F41.9 A-fib I48.0 Atrial fibrillation type: paroxysmal HTN (hypertension) I10 Hypertension type: essential hypertension Gastritis K29.00 Gastritis type: unspecified gastritis Chronicity: acute Gastritis bleeding: without bleeding (1) A-fib Atrial fibrillation type: paroxysmal Qualified Code(s): I48.0 - Paroxysmal atrial fibrillation (2) HTN (hypertension) Hypertension type: essential hypertension Qualified Code(s): I10 - Essential (primary) hypertension (3) Gastritis Gastritis type: unspecified gastritis Chronicity: acute Gastritis bleeding: without bleeding Qualified Code(s): K29.00 - Acute gastritis without bleeding
[2019-11-19] MEDS ORDERED: ONDANSETRON INJ 2 MG/ML 2 ML VIAL IV PRN (01:18)
[2019-11-19] MEDS: APIXABAN 5 MG TABLET PO SCH ×2 (01:44→08:39)
[2019-11-19] MEDS: SODIUM CHLORIDE 0.9% 1000ML 1,000 ML IV SCH ×2 (01:44→13:43)
[2019-11-19] MEDS: LOSARTAN POTASSIUM 50 MG TAB PO SCH ×2 (01:45→08:39)
[2019-11-19] MEDS: FLECAINIDE ACETATE 100 MG TABLET PO SCH ×2 (01:45→08:40)
[2019-11-19 02:38] LABS: Phosphorus 3.7 mg/dl (2.5-4.9)
[2019-11-19] MEDS ORDERED: dilTIAZem ER 120 MG CAPCR PO SCH (09:00)
[2019-11-19] MEDS ORDERED: FAMOTIDINE 20 MG in SYRINGE 3 ML IV SCH (09:00)
--- NOTE | 2019-11-19 14:51 | XRay Report ---
XR KUB/Abdomen 1 view CLINICAL HISTORY: SBO dyspnea. Pain. COMPARISON STUDY: 11/18/2019 FINDINGS: Several air-filled loops of small bowel. No evidence for colonic distention. No evidence fo r pneumatosis. Several lucencies overlying left upper quadrant appear to be secondary to overlapping bowel loops. IMPRESSION: Generalized nonobstructive small bowel ileus. ACT 112: Negative or not required by law. The above report was generated using voice recognition software. It may contain grammatical, syntax or spelling errors. Electronically signed by: Aidan Hudson M.D. 11/19/2019 2:50 PM
--- NOTE | 2019-11-19 14:52 | Medical Student Progress Note ---
Date of Service November 19, 2019 Assessment & Plan Treatment Plan Mrs. Crews is a 64-year-old female with a history of atrial fibrillation, cervical cancer s/p radiation + chemotherapy, hypertension, and chronic kidney disease who was admitted through the ED yesterday for a small bowel obstruction. Small Bowel Obstruction: Given that the patient was treated for C. jejuni infection about 1 month ago with a 3-day course of azithromycin, it is possible that this may have been the inciting event for the SBO as it can cause inflammation of the small bowel. However, she also has a history of cervical cancer s/p radiation. This radiation could have resulted in structural damage to the small bowel which may have also led to this patient's presentation. Patient had a normal coloscopy 2.5 years ago and was recommended for normal surveillance with repeat in 10 years. Therefore, it is unlikely that this obstruction represents a mass due to recurrence/metastases of her cervical cancer. Patient has remained afebrile and has a normal WBC count. Her nausea, vomiting, and abdominal pain have abated. In addition, she has regained her appetite. All of this demonstrates a clinical improvement and progress toward resolution. - Advance diet as tolerated. - Referral for barium small bowel follow-through to determine if there is a structural cause for SBO. Ongoing GI Illness: Patient has been having symptoms of nausea, vomiting, burning abdominal pain, and diarrhea intermittently for the past two months. It is likely that this represents a variety of discrete underlying etiologies including viral and bacterial illnesses as well as possible underlying structural pathology as discussed above. Therefore, there is no reason to think that after the resolution of this issue she will have a recurrent GI issue. - Continue on famotidine and pantoprazole as previously prescribed for GERD and gastritis. - Follow up with PCP. - Possible referral to GI should symptoms recur. Hypomagnesemia: Magnesium has returned to 2.2 from yesterday's level of 1.6 after magnesium repletion in the ED. - Resolved. Chronic kidney disease - Stage 3: BUN and Creatinine were elevated slightly above her baselines levels upon admission. This was likely due to volume contraction as per patient report she has had reduced oral intake and has been vomiting for the past 2-3 days. - Repeat BMP to ensure levels decrease now that she is rehydrated and taking PO prior to discharge. Atrial Fibrillation: Patient is currently in normal sinus rhythm. - Continue apixaban, flecainide, and diltiazem. Hypertension: Blood pressure stable since admission. - Continue diltiazem and losartan. Subjective Mrs. Crews reports having 8 incidents of diarrhea overnight. She attributes this to the magnesium infusions and states that she is diarrheal each time she receive magnesium. She states that she has been passing gas as well. She does not endorse nausea, vomiting, or abdominal pain and she states that she is hungry. Review of Systems Review of Systems: All systems reviewed & are unremarkable except as noted in HPI & below Constitutional: no fatigue, no malaise and no anorexia Eyes: no diplopia and no worsening vision Ear, Nose, Mouth, Throat: no problem reported Respiratory: no cough and no dyspnea Cardiovascular: no chest pain and no dyspnea Gastrointestinal: + diarrhea/loose stools; no abdominal pain, no belching, no heartburn, no nausea, no vomiting, no cramping and no blood in stools Genitourinary: no urinary frequency, no urinary incontinence and no hematuria Musculoskeletal: no back pain, no myalgia and no body aches Integumentary: no rash and no lesions Neurologic: no generalized weakness, no behavioral changes and no memory loss Psychiatric: + anxiety Endocrine: no fatigue Hematologic / Lymphatic: no problem reported Allergy / Immunological: no problem reported Physical Exam Physical Exam: General Appearance: Patient is resting comfortably in bed on exam. She is cooperative and appears to be in no acute distress. HEENT: Not examined. Neck: Not examined. Respiratory: Lungs clear bilaterally to auscultation. No rhonchi or wheezes. No increased work of breathing. Cardiovascular: Normal rate and rhythm. S1 and S2 appreciated. No rubs, murmurs, or gallops. No peripheral edema present. Gastrointestinal: Bowel sounds normoactive. No tenderness to palpation, guarding, or rebound tenderness. No organomegaly. MSK: Not examined. Skin: Warm, pink, dry. Neurological: Oriented to person, place, time, and event. Extraocular movements intact. Motor function and sensation grossly intact. Psychiatric: Thought process logical and organized. Affect appropriate. Genitourinary: Not examined. Lymphatic: Not examined. Results & Data ([facility]) Vital Signs (Past 12 Hours) Vital Signs Temp Pulse Resp BP Pulse Ox 11/19/19 07:36 36.7 C 76 16 138/70 98 Lab Results 11/17 11/18 BUN 28 Cr 1.7 Mg 1.6 2.2
[2019-11-19 15:42] VITALS: TEMP 98.4; O2SAT 95
--- NOTE | 2019-11-19 17:35 | Discharge Summary ---
Date of Service November 19, 2019 Admission HPI Per Admitting Provider Flores Crews is a 64yo C female with history of AF on Flecainide/Eliquis, HTN, CKD, Cervical CA s/p XRT presenting with SBO. Patient was recently admitted to [facility] on 10/17/19 with n/v/d. She was diagnosed with gastritis, hiatal hernia and found to gave Campylobacter jejuni + gastroenteritis. She completed three days of Azithromycin and reported complete resolution of symptoms. Patient had some nausea with vomiting two times this week. She felt tired yesterday. Today she felt ill, poor appetite as well as LUQ abdominal pain, nausea and belching. She denies fevers/chills. BMs have been loose for the last three days, non-bloody. No abdominal distention. She is still passing gas, last BM today in the ER, small amount. No additional complaints at this time ER Course: Magnesium x 2gm, Zofran, NSS x 2L Admission Exam Per Admitting Provider General: patient resting comfortably, NAD, non-toxic in appearance, AA&O x 4 Skin: warm, dry, intact, no rashes or lesions HEENT: NC/AT, PERRL, EOMI, anicteric sclera, conjunctiva without injection, external ear normal to inspection and nontender, nares patent, moist mucus membranes, dentition intact, no oropharyngeal lesions, neck supple, trachea midline, no LAD, no thyromegaly, no JVD Heart: +S1/S2, regular, no m/r/g Lungs: equal air entry bilaterally, no rales/rhonchi/wheezes Abd: +BS present, mildly hypoactive, soft, NT/ND, no masses/organomegaly/ascites Ext: warm, 2+ pulses in UE/LE bilaterally, no clubbing/cyanosis or edema Neuro: nonfocal, patient AA&O x 4, speech intact, no facial droop, moving all extremities on command with equal strength 5/5 Principal Diagnosis Small Bowel Obstruction Discharge Exam Constitutional WD/WN, vitals as above Eyes + anicteric sclerae ENMT external ear and nose normal, oropharynx normal Neck normal visual inspection and trachea midline Respiratory normal respiratory effort, lungs clear to auscultation Cardiovascular RRR, no murmur, no edema Heart Sounds: normal S1 and normal S2 Gastrointestinal (Abdomen) normal bowel sounds, soft, nontender, no hepatosplenomegaly Inspection/Auscultation: abdomen not distended Skin no rashes, warm and dry Psychiatric A+Ox3, euthymic affect Discharge Data Allergies Allergy/AdvReac Type Severity Reaction Status Date / Time No Known Allergies Allergy Verified 11/18/19 19:32 Consultations 11/18/19 23:03 ED Decision to Admit Stat Ordered Studies 11/18/19 20:54 CT abd pelvis oral con only Stat Hospital Course (1) Small bowel obstruction: Mrs. Crews is a 64-year-old female admitted for abdominal pain, nausea and vomiting, found to small bowel obstruction on CT scan. Small Bowel Obstruction: - abdominopelvic CT scan showed SBO without discrete transition point - Patient was treated with IVF, anti-nausea medication and keep NPO for ~ 12 hours. she did not require NG tube placement - diet was advanced, tolerated without recurrent abdominal pain or nausea - as for the etiology, patient had no prior surgeries of the abdomen or pelvis - she does have a history of cervical caner s/p radiation - colonoscopy 2.5 years ago was normal, routine 10 year follow up recommended Outpatient items to do: Consider ordering small bowel follow through study. Patient would benefit from seeing GI provider. Ongoing GI Illness: - patient was admitted to [facility] in 10/2019 for gastroenteritis, found to have C.jejuni in stool culture, s/p treatment with 3-day course azithromycin - barium swallow 10/18 showed moderate esophageal dysmotility without definite stricture - patient was admitted to [facility] in 08/2020 for GI distress thought to be secondary to a viral gastroenteritis - Continue on famotidine and pantoprazole as previously prescribed for GERD and gastritis. Hypomagnesemia: - 1.6 on admission. Patient was repleted and level improved to 2.2. Outpatient items to do: none RADHA on Chronic kidney disease - Stage 3: - Baseline Cr ~ 1.1. Up to 1.71. Likely related to volume contraction in setting of vomiting/diarrhea Outpatient items to do: repeat BMP Atrial Fibrillation: - Patient in normal sinus rhythm during admission. It was noted by pharmacy that the patient's flecainide dose was increased in the past year from 50mg BID to 100mg BID. Patient cannot recall why or when flecainide dose was increased. In the setting of her RADHA, pharmacy recommended reduced dosing, ie 50mg BID. We will flecainide at present dose as RADHA is resolving. Outpatient items to do: Encourage patient to follow up with cardiology on an outpatient basis to reconcile flecainide dosing. Hypertension: - Blood pressure stable since admission. - Electrolytes WNL - Continue diltiazem and losartan. Electrolytes WNL Outpatient items to do: none Total Time Total Time Spent Total Time Spent (In Minutes): see attending attestation Discharge Plan Discharge Items Patient Disposition: Home - Self-Care Reason For Visit: SBO Discharge Diagnosis: Small Bowel Obstruction Activity: Resume your previous activity Non-emergency contact: Primary Care Provider and [facility] Call non-emergency contact if: your symptoms worsen Follow-up/Referrals: Brigido Arnold MD [Primary Care Provider] - Diet: Low Fiber Addtl Attending Provider Instructions: You were hospitalized at [facility] for evaluation of abdominal pain, nausea and vomiting. A can scan of your abdomen was ordered which revealed an obstruction in your small intestine. You were treated with IV fluids and anti-nausea medication. Food was gradually re-introduced, and you tolerated it well without recurrent pain or nausea. The cause of your bowel obstruction is uncertain. It may have been provoked by your recent infection with a bacteria known as Campylobacter. We recommend you follow up both with primary care doctor and your [facility] Route [facility]rier, Dr. Whitehead. Please continue to take the medications prescribed by Dr. Whitehead: Pepcid and Protonix, daily until your next visit with him. Pending Studies at Discharge: No Stand-Alone Forms: My [facility], Smoking Cessation Medications and DC Order Prescriptions: Continued losartan 50 mg tablet 50 mg PO BID Qty: 180 RF: 3 Eliquis 5 mg tablet 5 mg PO BID Qty: 60 RF: 2 flecainide 100 mg tablet 100 mg PO Q12 Qty: 180 RF: 1 hydroxyzine HCl 25 mg tablet 25 mg PO Q6H PRN (Reason: Anxiety) RF: 0 pantoprazole 40 mg Tablet,Delayed Release (Dr/Ec) 40 mg PO BID Qty: 60 RF: 2 famotidine 40 mg tablet 40 mg PO BID RF: 0 acetaminophen [Tylenol Arthritis Pain] 650 mg Tablet Extended Release 650 mg PO BID PRN (Reason: Pain) RF: 0 diltiazem HCl [DILT-XR] 120 mg capsule,ext.rel 24h degradable 120 mg PO QAM RF: 0 cyanocobalamin (vitamin B-12) 500 mcg Tablet 500 mcg PO QAM RF: 0 Discharge Orders: Discharge Order (Routine); Ordered 11/19/19 Ordered By: Raine Molina/Other Patient Handouts: Obstruction Sm Bowel Admission Data Admit Date/Time: 11/19/19 00:15 Attending Provider: Josey Santos Admit Provider: Michelle Mcwilliams Primary Care Provider: Brigido Arnold Other Providers: Michelle Mcwilliams Other Interventions: Discharge Summary Assessment (RN) Last Done: 11/19/19 18:35 DC Date/Time DO NOT enter until pt leaves facility: 11/19/19 19:27 Supervising Physician Co-Signing Physician Notes Resident Physician Supervision Note: I independently interviewed and examined the patient and verified the cuevas history and physical, reviewed labs and image studies, discussed the case with the resident Dr. Nunez and agree with the findings and care plan. Resident Activity Tracking Resident Involvement: Resident Care Provided Care Provided: Adult Hospital Medicine
[2019-11-19 18:35] VITALS: BP 106/85
[2019-11-19 18:38] VITALS: PULSE 88
--- NOTE | 2019-11-20 05:36 | Electrocardiogram Report ---
Test Reason : Blood Pressure : / mmHG Vent. Rate : 085 BPM Atrial Rate : 085 BPM P-R Int : 240 ms QRS Dur : 086 ms QT Int : 364 ms P-R-T Axes : 050 075 031 degrees QTc Int : 433 ms Poor data quality, interpretation may be adversely affected Sinus rhythm with 1st degree A-V block Cannot rule out Inferior infarct , age undetermined Cannot rule out Anterior infarct (cited on or before 02-SEP-2019) Abnormal ECG When compared with ECG of 17-OCT-2019 13:16, Questionable change in initial forces of Anterior leads Confirmed by Varinder Begum ([id number]) on 11/19/2019 2:35:52 PM Referred By: REFERRED SELF Confirmed By:Varinder Begum
== END 2019-11-19 19:27 | disposition home or self-care (01) ==
LOC: ED 18:43 → INTOOBSV 11-19 00:15 → SUATTDRO 11-19 00:15 → 3N 11-19 00:15